=== PATIENT | female | born 1975 ===

== ENCOUNTER 2020-03-13 08:27 | Outpatient (REF) | payer OTHER, SELFPAY ==
--- NOTE | 2020-03-13 | US_ITS ---
EXAMINATION: US ABDOMEN COMPLETE CLINICAL INFORMATION: Left upper quadrant abdominal swelling, mass and lump. COMPARISON: 04/22/2019. TECHNIQUE: Real-time imaging of the abdominal viscera. FINDINGS: PANCREAS: Visualized pancreas unremarkable. The tail is partially obscured by bowel gas shadowing. ABDOMINAL AORTA: Unremarkable. INFERIOR VENA CAVA: Unremarkable. LIVER: Unremarkable. GALLBLADDER: Unremarkable. COMMON BILE DUCT: Normal in caliber measuring 0.7 cm in diameter. RIGHT KIDNEY: 11.0 cm. Unremarkable. LEFT KIDNEY: 10.1 cm. Unremarkable. SPLEEN: 7.0 cm. Unremarkable. FREE FLUID: None. SOFT TISSUES: Left upper quadrant soft tissues are unremarkable. IMPRESSION: Unremarkable abdomen. If the patient's left upper quadrant mass/swelling persists or worsens, further evaluation with a CT scan of the abdomen should be considered.
== END 2020-03-13 08:28 | disposition home or self-care (01) ==
LOC: HO.US 08:27
PROVIDERS: PCP Internal Medicine; Visit Provider Internal Medicine
DX: R19.02 Left upper quadrant abdominal swelling, mass and lump (principal)
CPT/HCPCS: 76700

== ENCOUNTER → 2020-04-21 08:31 | Outpatient (BNVA) | payer OTHER, SELFPAY | PROVIDERS: PCP Internal Medicine; Visit Provider Surgery | DX: Z76.89 Persons encountering health services in other specified circumstances (principal) ==

== ENCOUNTER → 2020-04-24 12:50 | Outpatient (BNVA) | payer OTHER, SELFPAY | PROVIDERS: Visit Provider Orthopaedic Surgery | DX: Z76.89 Persons encountering health services in other specified circumstances (principal) ==

== ENCOUNTER 2020-05-11 07:51 | Outpatient (REF) | payer OTHER, SELFPAY ==
[2020-05-11 07:57] VITALS: BP 118/68; PULSE 75; RESP 16; TEMP 36.4; O2SAT 98
[2020-05-11 08:26] VITALS: BP 114/72; PULSE 73; RESP 16; O2SAT 100
--- NOTE | 2020-05-11 08:30 | PM.OP ---
Brief Operative Note Date of Service: 05/11/20 Pre-op diagnosis: Lipoma left lower chest Post-op diagnosis: same Procedure: excision lipoma left lower chest Implants: non Surgeon: Sancho Doshi MD Anesthesia: local Estimated blood loss (mL): 2 Pathology: other ( lipoma left lower chest) Condition: stable Disposition: other ( home)
--- NOTE | 2020-05-11 08:31 | W.PM.OPN ---
Operative Note Operative Note Date of Service: 05/11/20 Narrative: Preoperative diagnosis: Lipoma left lower chest Postoperative diagnosis: Same Procedure: Excision of lipoma left lower chest Surgeon: Sancho Doshi MD Anesthesia: Local Indications for procedure: 44-year-old female presenting with a painful lipoma measuring approximately 3 cm in the lower left anterior chest at the anterior midclavicular line. Operative findings: 2.5 cm round lipoma Specimen: Lipoma left lower chest Estimated blood loss: 2 mL Complications: None Procedure details: Site of surgery was confirmed by the patient in the left lower chest. After assuring informed consent the patient was placed in a supine position. The lipoma the was marked with a skin scribe. Skin was prepped with Betadine and draped in a sterile fashion. Local anesthesia consisting of lidocaine 1% with epinephrine was infiltrated and an oblique fashion over the lipoma. Incision was then made with a scalpel carried out through subcutaneous tissue. Sharp dissection was then used to dissect the lipoma from the surrounding subcutaneous tissue. Specimen was sent to pathology for further examination. After assuring adequate hemostasis the deep subcutaneous tissue was closed using a 4-0 Polysorb suture. Skin was then closed using a running subcuticular 4 0 Polysorb suture. Steri-Strips 2 x 2 gauze and Tegaderm were then applied. The patient tolerated the procedure well was discharged to home in stable condition.
== END 2020-05-11 07:52 | disposition home or self-care (01) ==
LOC: HO.MS 07:51
PROVIDERS: PCP Internal Medicine; Visit Provider Surgery
PROC: (CPT 21552; principal; 2020-05-11 08:00)
DX: D17.1 Benign lipomatous neoplasm of skin and subcutaneous tissue of trunk (principal)
CPT/HCPCS: 21552; 88304

== ENCOUNTER → 2020-05-19 08:50 | Outpatient (BNVA) | payer OTHER, SELFPAY | PROVIDERS: PCP Internal Medicine; Visit Provider Surgery | DX: Z76.89 Persons encountering health services in other specified circumstances (principal) ==

== ENCOUNTER → 2020-05-23 12:31 | Outpatient (BNVA) | payer OTHER, SELFPAY | PROVIDERS: PCP Internal Medicine; Visit Provider Orthopaedic Surgery | DX: Z76.89 Persons encountering health services in other specified circumstances (principal) ==

== ENCOUNTER 2020-06-05 12:46 | Outpatient (REF) | payer OTHER, SELFPAY ==
[2020-06-05 13:46] LABS: COVID-19 Test Negative (Negative); IDNOW Serial# 55D5AD1C
== END 2020-06-05 12:47 | disposition home or self-care (01) ==
LOC: HO.EMPCOV 12:46
PROVIDERS: PCP Internal Medicine; Visit Provider Internal Medicine
DX: Z20.828 Contact with and (suspected) exposure to other viral communicable diseases (principal)
CPT/HCPCS: 87635; C9803

== ENCOUNTER 2020-06-22 08:03 | Day surgery (SDC) | payer OTHER, SELFPAY ==
[2020-06-16 14:12] VITALS: BMI 30.5
[2020-06-16 14:35] VITALS: BMI 30.5
[2020-06-22 08:27] VITALS: BP 106/84; PULSE 74; RESP 16; TEMP 37.3; O2SAT 97
--- NOTE | 2020-06-22 09:47 | PC.NURSE ---
MD CASILLAS BY BEDSIDE INJECTING LOCAL LIDO FOR PROCEDURE.RIGHT SIDE MARKED.
--- NOTE | 2020-06-22 09:54 | MHC.SHP ---
Pre-Procedural Eval Section B Chief Complaint: carpal tunnel,right upper limb Allergies: Allergies Allergy/AdvReac Type Severity Reaction Status Date / Time No Known Allergies Allergy Verified 05/23/20 12:37 [No Known Allergies*] Plan I have reviewed the history and physical and performed a pertinent physical examination on my patient. No changes have occurred unless specified.
--- NOTE | 2020-06-22 10:38 | W.PM.OPN ---
Operative Note Operative Note Date of Service: 06/22/20 Narrative: Preop diagnosis: 1. Right Carpal tunnel syndrome Postop diagnosis: 1. Right Carpal tunnel syndrome Procedure: 1. Right Carpal tunnel release Surgeon: Gretchen Thorpe MD Anesthesia: local block using 1% lidocaine with epinephrine Findings: Thickened transverse carpal ligament. EBL: Less than 5 mL Specimens: None Complications: None Disposition: Brought to recovery room in stable condition Plan: Follow-up for 7-10 days for wound check and suture removal Indications: The patient is 44 years old, with right carpal tunnel syndrome that has been unresponsive to nonoperative management. The risks and benefits of operative treatment including but not limited to risk of damage to blood vessels, nerves, tendons, infection, persistent pain, persistent symptoms, or possible need for additional surgery were discussed with the patient and the patient wishes to proceed with surgery. Procedure: Once consent was obtained a local block was performed using a combination of 1% lidocaine with epinephrine. The patient was then brought back to the operating suite and placed on the operative table in supine position. A tourniquet was applied to the proximal aspect of the right upper extremity and the limb was prepped and draped in a standard surgical fashion. Once assured that we had a good block, a 1.5 cm longitudinal incision was made centered over the right carpal tunnel. The incision was made through the skin to the subcutaneous tissues using a #15 blade. Dissection was made down to the level of the transverse carpal ligament with care being taken to protect the palmar cutaneous nerve. Once the transverse carpal ligament was clearly visualized, a longitudinal incision was made in the transverse carpal ligament 1st using a #15 blade, then using tenotomy scissors under direct visualization. Care was taken to look for and protect the motor branch of the median nerve when seen in this area. Once satisfied with our carpal tunnel release the wound was copiously irrigated with normal saline and hemostasis was obtained with a brief period of local pressure. The skin edges were reapproximated with some 5.0 nylon suture material and a sterile dressing was applied. The patient appears to have tolerated the procedure well and with no complications. All digits were well vascularized at the conclusion of the case.
[2020-06-22 11:03] VITALS: BP 119/60; PULSE 70; RESP 16; TEMP 36.4; O2SAT 96
== END 2020-06-22 23:59 | disposition home or self-care (01) ==
PROVIDERS: PCP Internal Medicine; Visit Provider Orthopaedic Surgery
PROC: (CPT 64721; principal; 2020-06-22 09:50)
DX: G56.01 Carpal tunnel syndrome, right upper limb (principal); J45.909 Unspecified asthma, uncomplicated; Z79.51 Long term (current) use of inhaled steroids
CPT/HCPCS: 64721

== ENCOUNTER 2020-06-27 12:26 | Outpatient (REF) | payer OTHER, SELFPAY ==
--- NOTE | 2020-06-27 13:04 | XR_ITS ---
EXAMINATION: XR HAND, RIGHT CLINICAL INFORMATION: Pain. COMPARISON: 11/25/2016 TECHNIQUE: PA, lateral, and oblique views of the right hand. FINDINGS: Normal bone mineralization. No fracture. Alignment is anatomic. Joint spaces are maintained. No erosions or soft tissue calcifications. XR/XR hand RT min 3V IMPRESSION: No acute osseous abnormality.
== END 2020-06-27 12:27 | disposition home or self-care (01) ==
LOC: HO.HOSX 12:26
PROVIDERS: PCP Internal Medicine; Visit Provider Orthopaedic Surgery
DX: M79.641 Pain in right hand (principal); Z91.81 History of falling; Z98.890 Other specified postprocedural states
CPT/HCPCS: 73130

== ENCOUNTER → 2020-07-03 09:59 | Outpatient (BNVA) | payer OTHER, SELFPAY | PROVIDERS: Visit Provider Orthopaedic Surgery ==

== ENCOUNTER 2020-07-19 14:39 | Outpatient (REF) | payer OTHER, SELFPAY ==
--- NOTE | ~2020-07-19 | XR_ITS ---
EXAMINATION: XR HIP, RIGHT CLINICAL INFORMATION: Pain right hip COMPARISON: None TECHNIQUE: Two views of the right hip. FINDINGS: Bones and soft tissues are normal. No fracture. Alignment is anatomic. Hip joint space is maintained. XR/XR hip RT min 2V IMPRESSION: Normal right hip.
== END 2020-07-19 14:40 | disposition home or self-care (01) ==
LOC: HO.XRAY 14:39
PROVIDERS: PCP Internal Medicine; Visit Provider Internal Medicine
DX: M25.551 Pain in right hip (principal); W19.XXXA Unspecified fall, initial encounter
CPT/HCPCS: 73502

== ENCOUNTER 2020-10-24 09:52 | Outpatient (REF) | payer OTHER, SELFPAY ==
--- NOTE | ~2020-10-24 | US_ITS ---
EXAMINATION: US ABDOMEN COMPLETE CLINICAL INFORMATION: Right upper quadrant pain. COMPARISON: Ultrasound abdomen complete dated 03/13/2020 and 04/22/2019. TECHNIQUE: Real-time imaging of the abdominal viscera. FINDINGS: PANCREAS: Normal. ABDOMINAL AORTA: The proximal, mid, and distal segments are normal in caliber. INFERIOR VENA CAVA: Visualized portions are normal. LIVER: The liver is normal in size. The liver contour is normal. There is increased liver echogenicity. No focal hepatic lesion. There is no intrahepatic biliary duct dilatation seen. GALLBLADDER: Normal. The gallbladder is physiologically distended without evidence of stones, sludge, polyps, wall thickening or pericholecystic fluid. COMMON BILE DUCT: Normal in caliber measuring 0.28 cm in diameter. RIGHT KIDNEY: Normal. No hydronephrosis. No renal calculi or focal parenchymal lesions. The kidney measures 10.8 cm in maximum dimension. LEFT KIDNEY: Normal. No hydronephrosis. No renal calculi or focal parenchymal lesions. The kidney measures 10.2 cm in maximum dimension. SPLEEN: Normal. The spleen measures 6.7 cm in maximum dimension. FREE FLUID: None. US/US abdomen complete IMPRESSION: Mild hepatic steatosis. No focal lesion seen. Rest of the abdominal ultrasound is unremarkable.
== END 2020-10-24 09:53 | disposition home or self-care (01) ==
LOC: HO.US 09:52
PROVIDERS: PCP Internal Medicine; Visit Provider Internal Medicine
DX: R10.11 Right upper quadrant pain (principal)
CPT/HCPCS: 76700

== ENCOUNTER 2020-11-18 20:12 | Emergency (ER) | payer OTHER, SELFPAY ==
[2020-11-18 20:22] VITALS: BP 123/69; PULSE 72; RESP 20; TEMP 36.2; O2SAT 99; BMI 30.9
[2020-11-18 21:54] LABS: MANUAL DIFF FLAG NO
[2020-11-18 21:56] LABS: Basophils Percent Auto 0.2 % (0-2); Eosinophils Absolute Auto 0.1 X10*3/uL (0.0-0.4); Eosinophils Percent Auto 0.9 % (0-4); Hematocrit 37.9 % (37-47); Hemoglobin 12.2 g/dl (12.0-16.0); Imm Gran Abs Auto 0.04 X10*3/uL (0.00-0.03); Imm Gran Pct Auto 0.4 % (0.0-0.4); Lymphocytes Absolute Auto 1.8 X10*3/uL (1.2-4.9); Lymphocytes Percent Auto 17.8 % (20-40); Mean Corpuscular HGB Conc 32.2 g/dl (31.0-35.0); Mean Corpuscular Hemoglobin 27.3 pg (27.0-33.0); Mean Corpuscular Volume 84.8 fL (80-98); Mean Platelet Volume 10.4 fL (9.4-12.3); Monocytes Absolute Auto 0.9 X10*3/uL (0.1-1.2); Monocytes Percent Auto 8.3 % (2-11); Neutrophils Absolute Auto 7.4 X10*3/uL (2.0-8.3); Neutrophils Percent Auto 72.4 % (45-73); Platelet Count 234 X10*3/uL (160-400); Red Blood Count 4.47 X10*6/uL (4.20-5.50); Red Cell Distribution Width 13.4 % (11.0-16.0); White Blood Count 10.3 X10*3/uL (4.8-10.8)
[2020-11-18 22:26] LABS: Alanine Aminotransferase 20 U/L (0-31); Albumin Level 4.3 g/dL (3.5-5.0); Alkaline Phosphatase 82 U/L (39-117); Anion Gap 12 (12-20); Aspartate Amino Transferase 23 U/L (5-31); Bilirubin Total 0.3 mg/dL (0.0-1.0); Blood Urea Nitrogen 8 mg/dL (9-16); Calcium 9.2 mg/dL (8.4-10.2); Carbon Dioxide 26 mmol/L (22-29); Chloride 105 mmol/L (96-108); Estimated Glomerular Filt Rate > 60; Glucose Random 89 mg/dL (60-115); Potassium 4.1 mmol/L (3.3-5.1); Sodium 139 mmol/L (135-145); Total Protein 7.5 g/dL (6.5-8.0)
--- NOTE | 2020-11-18 22:35 | ED_ITS ---
HPI - General Adult General Chief complaint: Upper Respiratory Symptoms Stated complaint: sore throat Time Seen by Provider: 11/18/20 22:17 History of Present Illness HPI narrative: Patient 44 years old presents today with having sore throat for the last few days. Seen in urgent care had a rapid strep done that was negative. Complaining of tonsils being big. Continued to have pain. Cancer presents to the emergency department. No fever no chills. Pain on swallowing. No diaphoresis. No systemic complaints. Patient from home. No travel history. No cough no congestion or upper respiratory symptoms Related Data Home Medications Medication Instructions Recorded Confirmed albuterol sulfate 2.5 mg INHALATION Q4H PRN 04/21/20 06/16/20 albuterol sulfate 90 mcg/actuation 1 puff INHALATION Q4-6H PRN 04/21/20 06/16/20 aerosol inhaler fluticasone propionate 110 2 puff INHALATION QAM 04/21/20 06/16/20 mcg/actuation HFA aerosol inhaler lorazepam 0.5 mg tablet 0.5 mg PO BID PRN 04/21/20 06/16/20 meloxicam 15 mg tablet 15 mg PO DAILY 04/21/20 06/16/20 Previous Rx's Medication Instructions Recorded hydrocodone-acetaminophen 1 tab PO Q4-6H PRN #5 tab 06/22/20 penicillin V potassium 500 mg PO TID #30 tab 11/18/20 prednisone 40 mg PO DAILY #10 tab 11/18/20 Allergies Allergy/AdvReac Type Severity Reaction Status Date / Time No Known Allergies Allergy Verified 07/03/20 10:06 [No Known Allergies*] Review of Systems Review of Systems: Constitutional: No Weight loss, No Fever, No Chills, No Night Sweats, No Fatigue, No Malaise ENT/Mouth: No Hearing loss, No Ear Pain, No Nasal Congestion, No Sinus Pain, No Hoarseness, positive sore throat, No Rhinorrhea, No Swallowing Difficulty Eyes: No Eye Pain, No Swelling, No Redness, No Foreign Body, No Discharge, No Vision Changes Cardiovascular: No Chest Pain, No SOB, No Dyspnea on Exertion, No Orthopnea, No Edema, No Palpitations Respiratory: No Cough, No Sputum, No Wheezing, No Smoke Exposure, No Dyspnea Gastrointestinal: No Nausea, No Vomiting, No Diarrhea, No Constipation, No abdominal Pain, No Hematochezia, No Melena Genitourinary: no irregular bleeding, No Dysuria, No Urinary Frequency, No Hematuria, No Urinary Incontinence, No Urgency, No Flank Pain, No Urinary Flow Changes, No Hesitancy Musculoskeletal: No joint pain, No Myalgias, No Joint Swelling Skin: No Skin Lesions, No rash Neuro: No Weakness, No Numbness, No Paresthesias, No Loss of Consciousness, No Dizziness, No Headache Psych: No Anxiety/Panic, No Depression, No SI/HI/AH/VH, No Social Issues, Heme/Lymph: No Bruising, No Bleeding,No Lymphadenopathy Endocrine: No Polyuria, No Polydipsia, No Temperature Intolerance [facility] Past Medical History Attestation statement: The following information was validated with the patient. 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 Oriented X3. No acute distress. Eyes: Pupils equal, round and reactive to light. ENT: Pharynx normal, tonsil enlarged bilaterally with exudate noted Neck: Normal inspection. Neck supple. No lymph nodes noted. No crepitus CVS: Normal heart rate and rhythm. Pulses normal. Normal S1 and S2 Respiratory: No respiratory distress. Breath sounds normal. No Wheezing. No rales Abdomen: Soft and nontender. No rigidity. No distention. good BS x4 Skin: Skin warm and dry. Normal skin color. Normal skin turgor. Extremities: No lower extremity edema. Neurovascular intact to all extremities. No Lacerations. No Rash Neuro: Oriented X 3. No motor deficit. No sensory deficit. Moving all ex termities. No slurred speech Medical Decision Making MDM Narrative Medical decision making narrative: Positive enlarged tonsils on both sides. Touching the uvula. Positive redness. Positive swelling positive exudate. Less likely peritonsillar abscess given both sides are swollen. Will give pat ient antibiotics steroids. Will have patient follow-up with ENT on an outpatient basis. Lab Data Result diagrams: 11/18/20 21:47 11/18/20 21:47 Labs: Lab Results 11/18/20 11/18/20 Range/Units 21:47 21:47 WBC 10.3 (4.8-10.8) X10*3/uL RBC 4.47 (4.20-5.50) X10*6/uL Hgb 12.2 (12.0-16.0) g/dl Hct 37.9 (37-47) % MCV 84.8 (80-98) fL MCH 27.3 (27.0-33.0) pg MCHC 32.2 (31.0-35.0) g/dl RDW 13.4 (11.0-16.0) % Plt Count 234 (160-400) X10*3/uL MPV 10.4 (9.4-12.3) fL Immature Gran % (Auto) 0.4 (0.0-0.4) % Neut % (Auto) 72.4 (45-73) % Lymph % (Auto) 17.8 L (20-40) % Baxter % (Auto) 8.3 (2-11) % Eos % (Auto) 0.9 (0-4) % Baso % (Auto) 0.2 (0-2) % Lymph # (Auto) 1.8 (1.2-4.9) X10*3/uL Baxter # (Auto) 0.9 (0.1-1.2) X10*3/uL Eos # (Auto) 0.1 (0.0-0.4) X10*3/uL Baso # (Auto) 0.0 (0.0-0.2) X10*3/uL Abs Immat Gran (auto) 0.04 H (0.00-0.03) X10*3/uL Absolute Neuts (auto) 7.4 (2.0-8.3) X10*3/uL Absolute Nucleated RBC 0.000 (0.0-0.012) X10*3/uL Nucleated RBC % (auto) 0.0 (0.0-0.2) /100WBC Sodium 139 (135-145) mmol/L Potassium 4.1 (3.3-5.1) mmol/L Chloride 105 (96-108) mmol/L Carbon Dioxide 26 (22-29) mmol/L Anion Gap 12 (12-20) BUN 8 L (9-16) mg/dL Creatinine 0.79 (0.5-1.4) mg/dL Estim Creat Clear Calc 93.0 Estimated GFR > 60 Random Glucose 89 (60-115) mg/dL Calcium 9.2 (8.4-10.2) mg/dL Total Bilirubin 0.3 (0.0-1.0) mg/dL AST 23 (5-31) U/L ALT 20 (0-31) U/L Alkaline Phosphatase 82 (39-117) U/L Total Protein 7.5 (6.5-8.0) g/dL Albumin 4.3 (3.5-5.0) g/dL Discharge Plan Discharge Clinical Impression: Acute bacterial tonsillitis Patient Disposition: Home, Self-Care Instructions: Tonsillitis (ED) Prescriptions: New prednisone 20 mg tablet 40 mg PO DAILY Qty: 10 RF: 0 penicillin V potassium 500 mg tablet 500 mg PO TID Qty: 30 RF: 0 No Action hydrocodone-acetaminophen 5-325 mg tablet 1 tab PO Q4-6H PRN (Reason: pain) Qty: 5 RF: 0 albuterol sulfate 90 mcg/actuation HFA aerosol inhaler 1 puff inhalation Q4-6H PRN (Reason: Shortness Of Breath) RF: 0 Flovent HFA 110 mcg/actuation HFA aerosol inhaler 2 puff inhalation QAM RF: 0 lorazepam 0.5 mg tablet 0.5 mg PO BID PRN (Reason: Anxiety) RF: 0 meloxicam 15 mg tablet 15 mg PO DAILY RF: 0 albuterol sulfate 2.5 mg /3 mL (0.083 %) solution for nebulization 2.5 mg inhalation Q4H PRN (Reason: Shortness Of Breath) RF: 0 Referrals: Evelio Koo [Physician] - 2 days
[2020-11-18] MEDS: predniSONE 20 MG TABLET 40 MG PO (22:53)
[2020-11-18] MEDS: Acetaminophen 325 MG TABLET 650 MG PO (22:53)
[2020-11-18] MEDS: Penicillin V Potassium 250 MG TABLET 500 MG PO (22:53)
[2020-11-19 00:25] LABS: IDNOW Serial# 9DD0AD1C; Strep A Nucleic Acid Negative (Negative)
== END 2020-11-18 23:01 | disposition home or self-care (01) ==
PROVIDERS: Emergency Provider Emergency Medicine Emergency Medical Services; PCP Internal Medicine
DX: J03.90 Acute tonsillitis, unspecified (principal)
CPT/HCPCS: 36415; 80053; 85025; 87651; 99283

== ENCOUNTER 2020-11-27 10:54 | Outpatient (REF) | payer OTHER, SELFPAY ==
[2020-11-28 22:12] LABS: Transglutaminase Ab IgG 1 U/mL; Transglutaminase IgA 1 U/mL
== END 2020-11-27 10:55 | disposition home or self-care (01) ==
LOC: HO.LAB 10:54
PROVIDERS: PCP Internal Medicine; Referring Provider Internal Medicine; Visit Provider Nurse Practitioner Family
DX: R10.11 Right upper quadrant pain (principal); K21.9 Gastro-esophageal reflux disease without esophagitis; Z83.79 Family history of other diseases of the digestive system
CPT/HCPCS: 36415; 83516

== ENCOUNTER 2020-11-28 14:22 | Outpatient (REF) | payer OTHER, SELFPAY | END 2020-11-28 14:23 | disposition home or self-care (01) | LOC: HO.LNP 14:22 | PROVIDERS: Visit Provider Nurse Practitioner Family | DX: K21.9 Gastro-esophageal reflux disease without esophagitis (principal) | CPT/HCPCS: 87338 ==

== ENCOUNTER 2020-11-30 14:04 | Outpatient (REF) | payer OTHER, SELFPAY ==
--- NOTE | ~2020-11-30 | US_ITS ---
EXAMINATION: US SOFT TISSUE NECK CLINICAL INFORMATION: Swelling/mass/lump on neck. Rule out abscess. COMPARISON: None TECHNIQUE: Ultrasound of the neck soft tissues was performed with high- frequency quintanilla-scale imaging and color Doppler. FINDINGS: No abscess is seen. There is bilateral cervical lymphadenopathy. There are 2 right level II lymph nodes that are enlarged and measure 2.9 x 0.8 x 2.3 cm and 3.6 x 0.6 x 1.4 cm in sagittal, AP and transverse dimensions. These demonstrate normal ultrasound morphology and flow. There are 3 left cervical lymph nodes that are slightly enlarged. There is a left level II lymph node that measures 2.5 x 1.1 x 1.3 cm, 2 x 0.6 x 1.3 cm and 1.6 x 0.8 x 1.3 cm. These demonstrate normal ultrasound morphology and flow. US/US soft tiss head and/or neck IMPRESSION: Enlarged bilateral cervical lymph nodes. Lymph nodes demonstrate normal ultrasound morphology and flow. Management should be determined on a clinical basis. No abscess.
== END 2020-11-30 14:05 | disposition home or self-care (01) ==
LOC: HO.HMGCX 14:04
PROVIDERS: PCP Internal Medicine; Visit Provider Emergency Medicine
DX: J35.1 Hypertrophy of tonsils (principal); R22.1 Localized swelling, mass and lump, neck
CPT/HCPCS: 76536

== ENCOUNTER 2021-01-02 12:22 | Outpatient (REF) | payer OTHER, SELFPAY ==
--- NOTE | ~2021-01-02 | XR_ITS ---
EXAMINATION: XR FOOT, RIGHT CLINICAL INFORMATION: Pain COMPARISON: Previous x-ray March 2017 TECHNIQUE: AP, lateral, and oblique views of the right foot. FINDINGS: Bone alignment is normal. No fracture or dislocation. The joint spaces are normal. There are small calcaneal spurs. Soft tissues are otherwise unremarkable. XR/XR foot RT min 3V IMPRESSION: Small calcaneal spurs otherwise unremarkable exam.
== END 2021-01-02 12:23 | disposition home or self-care (01) ==
LOC: HO.XRAY 12:22
PROVIDERS: Absent Provider Internal Medicine; PCP Internal Medicine; Visit Provider Emergency Medicine
DX: M79.671 Pain in right foot (principal)
CPT/HCPCS: 73630

== ENCOUNTER → 2021-01-10 07:59 | Outpatient (REF) | payer OTHER, SELFPAY | LOC: HO.NUCMED 07:59 | PROVIDERS: Visit Provider Nurse Practitioner Family | DX: Z13.89 Encounter for screening for other disorder (principal) ==

== ENCOUNTER → 2021-01-23 07:50 | Outpatient (REF) | payer OTHER, SELFPAY ==
--- NOTE | ~2021-01-23 | NM_ITS ---
EXAMINATION: NM BILIARY TRACT WITH ORAL FATTY MEAL CLINICAL INFORMATION: Right upper quadrant pain. COMPARISON: No previous biliary scan is available for comparison. Abdominal ultrasound dated 10/24/2020 is available for comparison. TECHNIQUE: Serial gamma scintillation camera images were obtained over the abdomen for a total observation period of 139 minutes following the intravenous administration of 5 mCi Tc-99m Mebrofenin. FINDINGS: There is good concentration of activity in the liver by 5 minutes post injection. Biliary activity is visualized by 10 minutes. The gallbladder is well visualized by 30 minutes. Small bowel is well visualized by 25 minutes. At 60 minutes post Mebrofenin injection, 8 ounces of Ensure-plus Brand was administered orally and an additional 60 minutes of images were obtained. There is good emptying of the gallbladder following ingestion of the fatty meal. At the end of the study there is good clearance of activity from the liver and visualization of diffuse small bowel activity. The calculated gallbladder ejection fraction is 87% (normal gallbladder ejection fraction using Ensure supplement orally is greater than 33%). NM/NM hepatobiliary wo pharm IMPRESSION: Visualization of the gallbladder is evidence of a patent cystic duct and strong evidence against the diagnosis of acute cholecystitis. The common bile duct is patent. Gallbladder emptying and ejection fraction are normal. Liver function appears normal.
== END ==
LOC: HO.NUCMED 07:50
PROVIDERS: Visit Provider Nurse Practitioner Family
DX: R10.11 Right upper quadrant pain (principal)
CPT/HCPCS: 78226; A9537

== ENCOUNTER 2021-02-13 16:00 | Outpatient (REF) | payer OTHER, SELFPAY ==
[2021-02-13 18:16] LABS: Blood Urea Nitrogen 10 mg/dL (9-16); C Reactive Protein 0.11 mg/dL (< or = 0.50); Estimated Glomerular Filt Rate > 60; Lipase 27 U/L (8-78)
[2021-02-13 18:36] LABS: TSH reflex Free T4 0.77 uIU/mL (0.32-4.0)
== END 2021-02-13 16:01 | disposition home or self-care (01) ==
LOC: HO.LAB 16:00
PROVIDERS: PCP Internal Medicine; Referring Provider Internal Medicine; Visit Provider Nurse Practitioner Family
DX: R10.9 Unspecified abdominal pain (principal); K21.9 Gastro-esophageal reflux disease without esophagitis; K58.2 Mixed irritable bowel syndrome; R19.7 Diarrhea, unspecified
CPT/HCPCS: 36415; 82565; 83690; 84443; 84520; 86140

== ENCOUNTER 2021-02-21 06:55 | Outpatient (REF) | payer OTHER, SELFPAY ==
--- NOTE | ~2021-02-21 | CT_ITS ---
EXAMINATION: CT ABDOMEN AND PELVIS WITH CONTRAST CLINICAL INFORMATION: Abdominal pain COMPARISON: None TECHNIQUE: Multidetector volumetric images were obtained from the superior aspect of the liver through the pubic symphysis following administration 85 mL of Omnipaque 350 intravenous contrast. Sagittal and coronal reformatted images were obtained on the technologist's workstation. Oral contrast: No This CT examination was performed using dose optimization techniques as appropriate, variously including the following: *Automated exposure control *Adjustment of mA and/or kV according to patient size (this includes techniques or standardized protocols for targeted exams where dose is matched to indication/reason for exam; i.e. extremities or head) *Use of iterative reconstruction technique DLP: 520 mGy-cm FINDINGS: LUNG BASES: The visualized lung bases are unremarkable. LIVER, GALLBLADDER, AND BILIARY TREE: The liver is normal in size, shape, and attenuation. No focal hepatic lesion or biliary ductal dilatation is present. The gallbladder is unremarkable with no evidence of radiopaque gallstones, gallbladder wall thickening, or obvious pericholecystic inflammatory changes. PANCREAS: Unremarkable. SPLEEN: Unremarkable. ADRENAL GLANDS: Unremarkable. KIDNEYS AND URETERS: The kidneys are normal in size, shape, and attenuation. No hydronephrosis, hydroureter, or calculi seen. No perinephric stranding. BLADDER: Unremarkable. GASTROINTESTINAL TRACT: There is scattered moderate stool and gas seen throughout the colon without significant distention. The small bowel loops are normal caliber. Appendix is not visualized. No free air or free fluid seen. ABDOMINAL WALL: There is a small umbilical hernia containing fat. LYMPH NODES: Normal. VASCULAR: Unremarkable. PELVIC VISCERA: The uterus is retroverted and appears unremarkable. There is no free fluid. OSSEOUS STRUCTURES: No lytic or sclerotic process seen. CT/CT abdomen pelvis w con IMPRESSION: Retroverted but unremarkable uterus. No adnexal mass or free fluid. No acute intra-abdominal process seen.
[2021-02-21] MEDS: iohexoL 350 MG/ML 100 ML INFUS..BTL 85 ML IV (09:37)
[2021-02-21] MEDS: Barium Sulfate Oral (Vanilla) 450 ML ORAL.SUSP 900 ML PO (09:41)
== END 2021-02-21 06:56 | disposition home or self-care (01) ==
LOC: HO.CT 06:55
PROVIDERS: Visit Provider Nurse Practitioner Family
DX: R10.9 Unspecified abdominal pain (principal)
CPT/HCPCS: 74177; Q9967

== ENCOUNTER → 2021-03-20 15:54 | Outpatient (BNVA) | payer OTHER, SELFPAY | PROVIDERS: PCP Internal Medicine; Referring Provider Internal Medicine; Visit Provider Nurse Practitioner Family ==

== ENCOUNTER → 2021-04-23 08:20 | Outpatient (BNVA) | payer OTHER, SELFPAY | PROVIDERS: PCP Internal Medicine; Referring Provider Internal Medicine; Visit Provider Nurse Practitioner Family ==

== ENCOUNTER 2021-06-15 07:27 | Day surgery (SDC) | payer OTHER, SELFPAY ==
[2021-06-05 16:16] VITALS: BMI 30.9
--- NOTE | 2021-06-14 15:32 | P.CONAN_ITS ---
Documented by User: Jasmina Gross NP 06/14/21 15:32 HPI - Anesthesia Eval Consult details Narrative: 45yo F for Upper Endoscopy and Colonoscopy [facility] Active Problems Active Problems: All Active Problems (Updated 06/05/21 @ 16:16 by Marya Hawkins RN) Lipoma (Acute) Numbness and tingling in both hands (Acute ~07/2019) Carpal tunnel syndrome of right wrist (Acute) Right hand pain (Acute) Past Medical History Medical History Anxiety Asthma Back pain COVID-19 vaccine administered GERD (gastroesophageal reflux disease) Lab test negative for COVID-19 virus Lipoma Pancreatitis Family History Family History Maternal Grandmother History of ovarian cancer Mother History of thyroid disease Surgical History Surgical History History of carpal tunnel release (~06/22/20) Status post excision of lipoma Social History Social History Alcohol intake: never Patient Tobacco Use Status: Never used Tobacco Use of substances other than those prescribed or required for medical reasons: No Are you DNR?: No Advance Directives: No Advance Directives Information Provided: No Advance Directives on File: No Recently lost weight without trying: No Nutrition Risks: No Nutritional Risk Patient : No Current occupational status: employed 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 Allergies Allergy/AdvReac Type Severity Reaction Status Date / Time kiwi Allergy Anaphylaxis Verified 06/15/21 07:50 pear Allergy Anaphylaxis Verified 06/15/21 07:50 pineapple Allergy Anaphylaxis Verified 06/15/21 07:50 strawberry Allergy Anaphylaxis Verified 06/15/21 07:50 Home Medications Medication Instructions Recorded Confirmed Last Taken Type albuterol sulfate 2.5 mg INHALATION Q4H PRN 04/21/20 06/05/21 Unknown History fluticasone propionate 110 2 puff INHALATION QAM 04/21/20 06/05/21 Unknown History mcg/actuation HFA aerosol inhaler lorazepam 0.5 mg tablet 0.5 mg PO BID PRN 04/21/20 06/05/21 06/15/21 07:45 History epinephrine 0.3 mg/0.3 mL 0.3 ml IM DIRECTED PRN 03/20/21 06/05/21 Unknown History injection, auto-injector Exam Exam Date and Time: June 14, 2021 1532 Height,Weight and Vital Signs: Height 5 ft 4 in Weight 81.647 kg Assessment and Plan Assessment Anesthesia Assessment: Chart Reviewed Documented by User: Frederick Lynn MD 06/15/21 08:36 [facility] Past Medical History Medical History Anxiety Asthma Back pain COVID-19 vaccine administered GERD (gastroesophageal reflux disease) Lab test negative for COVID-19 virus Lipoma Pancreatitis Family History Family History Maternal Grandmother History of ovarian cancer Mother History of thyroid disease Family history of problems with anesthesia: No Surgical History Surgical History History of carpal tunnel release (~06/22/20) Status post excision of lipoma History of Problems with Anesthesia: No Social History Social History Alcohol intake: never Patient Tobacco Use Status: Never used Tobacco Use of substances other than those prescribed or required for medical reasons: No Are you DNR?: No Advance Directives: No Advance Directives Information Provided: No Advance Directives on File: No Recently lost weight without trying: No Nutrition Risks: No Nutritional Risk Patient : No Current occupational status: employed 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 Allergies Allergy/AdvReac Type Severity Reaction Status Date / Time kiwi Allergy Anaphylaxis Verified 06/15/21 07:50 pear Allergy Anaphylaxis Verified 06/15/21 07:50 pineapple Allergy Anaphylaxis Verified 06/15/21 07:50 strawberry Allergy Anaphylaxis Verified 06/15/21 07:50 Home Medications Medication Instructions Recorded Confirmed Last Taken Type albuterol sulfate 2.5 mg INHALATION Q4H PRN 04/21/20 06/05/21 Unknown History fluticasone propionate 110 2 puff INHALATION QAM 04/21/20 06/05/21 Unknown History mcg/actuation HFA aerosol inhaler lorazepam 0.5 mg tablet 0.5 mg PO BID PRN 04/21/20 06/05/21 06/15/21 07:45 History epinephrine 0.3 mg/0.3 mL 0.3 ml IM DIRECTED PRN 03/20/21 06/05/21 Unknown History injection, auto-injector Exam Airway Mallampati Class: II TM Dist: >3cm Neck ROM: Full Loose/Missing/Broken Teeth: No Heart: [id number] Lungs: cta b/l Assessment and Plan Assessment Anesthesia Assessment: Anesthesia Plan Discussed Final Anesthetic Review Family History of Problems with Anesthesia: No History of Problems with Anesthesia: No NPO: Yes ASA Class: II Final Preanesthetic Review: No Changes in Pt Med Stat, Meds/Allgs Chart Reviewed, Consent Obtained/Reviewed and Anes Risks/Benef Reviewed Patient Risk: Intermediate Procedure Risk: Low Assessment/Block/Sedation in SS: Assess/Block/Sedation-SS Anesthetic Plan Anesthetic Plan: MAC: and Agree w/ Assess. and Plan Disposition: Standard PACU
[2021-06-15 07:59] LABS: UPreg QC Valid YES; Urine Pregnancy NEGATIVE (NEGATIVE)
[2021-06-15 08:01] VITALS: BP 117/72; PULSE 79; RESP 16; TEMP 36.8; O2SAT 97
[2021-06-15] MEDS: Lactated Ringers 1,000 ML 100 ML IVCONT (08:14)
--- NOTE | 2021-06-15 08:26 | MHC.SHP ---
Pre-Procedural Eval Section A Date of Service: 06/15/21 The patient is an INPATIENT: No The History & Physical has been completed within 30 days and I have reviewed it.: No Section B Chief Complaint: Colon cancer screening, abdominal pain, GERD Details of Present Illness: colon cancer screening, constipation, abdominal pain, GERD Relevant Family History (Specify if Yes): No Relevant Social History: None Present Medications: see Short Stay Collaborative assessment Medical History: Significant History (Anxiety Asthma COVID-19 vaccine administered Lab test negative for COVID-19 virus Lipoma Pancreatitis) History of Previous Operations: Relevant previous surgery/procedure and date(s) (History of carpal tunnel release (~06/22/20) Status post excision of lipoma) Allergies: Allergies Allergy/AdvReac Type Severity Reaction Status Date / Time kiwi Allergy Anaphylaxis Verified 06/15/21 07:50 pear Allergy Anaphylaxis Verified 06/15/21 07:50 pineapple Allergy Anaphylaxis Verified 06/15/21 07:50 strawberry Allergy Anaphylaxis Verified 06/15/21 07:50 Review of Systems Sugical H&P ROS: Negative: Constitution, Cardiovascular and Respiratory and Yes, Specify: Gastrointestinal (constipation) Exam Surgical H&P Exam: Normal: Heart, Normal: Lungs, Normal: Extremities and Normal: Abdomen Plan Diagnosis/Plan: Unchanged I have reviewed the history and physical and performed a pertinent physical examination on my patient. No changes have occurred unless specified.
--- NOTE | 2021-06-15 08:27 | PM.OP ---
Brief Operative Note Date of Service: 06/15/21 Pre-op diagnosis: colon cancer screening, chronic constipation, GERD, abdominal pain Post-op diagnosis: other ( colon polyp, diverticulosis, gastritis, GERD, duodenitis) Procedure: FLEXIBLE TRANSORAL UPPER GASTROINTESTINAL ENDOSCOPY WITH BIOPSIES AND COLONOSCOPY TILL CECUM WITH BIOPSIES UPPER ENDOSCOPY Consent: Indications for the procedure and potential complications of bleeding, perforation, reaction to medications and missed diagnosis were discussed with the patient and informed consent was obtained. Instrument: Olympus GIF H 190 mid size upper endoscope Monitoring: Vital signs and clinical assessment, continuous EKG monitoring, Pulse oximetry, Carbon Dioxide monitoring and blood pressure monitoring were done throughout the procedure. Procedure: The patient was placed in the left lateral decubitis position and pre-procedure medications were administered and a bite block was placed. The endoscope was inserted into the mouth and advanced under direct vision to the third part of duodenum. A careful inspection was made as the upper endoscope was withdrawn including a retroflexed examination of the proximal stomach; Findings and interventions are described below. Findings: Larynx: Normal Esophagus: GE junction at 38 cms. No esophagitis or Dickens's. Stomach: Mild gastric erythema. Biopsies were obtained. Grade 2 flap valve on retroflexed examination of the cardia. Duodenum: Mild duodenitis in the bulb and normal descending duodenum. Biopsies were obtained from 3rd part of the duodenum to check for celiac sprue Intervention: Biopsies as noted above COLONOSCOPY PROCEDURE NOTE Consent: Indications for the procedure and potential complications of bleeding, perforation, reaction to medications and missed diagnosis were discussed with the patient and informed consent was obtained. Instrument: Olympus PCF H 190 L variable stiffness pediatric colonoscope Monitoring: Vital signs and clinical assessment, intermittent blood pressure monitoring, continuous EKG monitoring, Pulse oximetry and Carbon Dioxide monitoring were done throughout the procedure. Colon withdrawl time was 12 minutes. Procedure: The patient was placed in the left lateral decubitis position and pre-procedure medications were administered. After a digital rectal examination of the ano-rectum, the video colonoscope was inserted into the rectum and advanced through the colon to the cecum. The colonoscope was slowly withdrawn in a retrograde panoramic fashion and the colon mucosa was carefully examined including a retroflexed view of the rectum. Findings and interventions are described below. Procedure Difficulty: : Without difficulty Findings: Terminal Ileum: Not evaluated Cecum: Normal Ascending Colon: Normal Transverse Colon: Normal Descending Colon: Normal Sigmoid Colon: A 5-6 mm sessile polyp removed with the cold biopsy. Moderate diverticulosis Rectum: Normal Ano-rectum: Normal Colon preparation: Excellent Impression and Post Procedure Diagnosis: Endoscopy Findings: STOMACH: Mild gastritis DUODENUM: Mild duodenitis in the bulb and normal descending duodenum - Biopsied to check for celiac sprue Colonoscopy Findings: One small polyp removed Moderate diverticulosis seen in the sigmoid colon Plan: Await pathology results Patient has an appointment on 06/29/20 in the GI Clinic with Macey Hammonds FNP-BC. Repeat Colonoscopy interval based on path results - in 5 years if polyps are adenomatous and 10 years if polyps are hyperplastic. Above findings were reviewed with the patient and GERD, colon polyps and diverticulosis handouts were given in the discharge area Surgeon: Candelario Johnson MD Anesthesia: MAC (Loni Khanna CRNA) Was an Press Operator Assistant used for this Procedure?: Yes Press Operator Assistant: Sienna Baliey Estimated blood loss (mL): 0 Pathology: other (A- Small bowel BX r/o celiac disease B- Gastric antrum BX r/o H Pylori C- Sigmoid polyp) Condition: stable Disposition: PACU
--- NOTE | 2021-06-15 08:28 | W.PM.OPN ---
Operative Note Operative Note Date of Service: 06/15/21 Narrative: Pre-op diagnosis:??colon cancer screening,? chronic constipation, GERD, abdominal pain Post-op diagnosis:?other ( colon polyp, diverticulosis, gastritis, GERD, duodenitis) Procedure:? FLEXIBLE TRANSORAL UPPER GASTROINTESTINAL ENDOSCOPY WITH BIOPSIES AND COLONOSCOPY TILL CECUM WITH BIOPSIES UPPER ENDOSCOPY Consent:?Indications for the procedure and potential complications of bleeding, perforation, reaction to medications and missed diagnosis were discussed with the patient and informed consent was obtained. Instrument:?Olympus GIF H 190 mid size upper endoscope Monitoring: Vital signs and clinical assessment, continuous EKG monitoring, Pulse oximetry, Carbon Dioxide monitoring and blood pressure monitoring were done throughout the procedure. Procedure:?The patient was placed in the left lateral decubitis position and pre-procedure medications were administered and a bite block was placed. The endoscope was inserted into the mouth and advanced under direct vision to the third part of duodenum. A careful inspection was made as the upper endoscope was withdrawn including a retroflexed examination of the proximal stomach; Findings and interventions are described below. Findings: Larynx:? Normal Esophagus:?GE junction at 38 cms. No esophagitis or Dickens's. Stomach:?Mild gastric erythema. Biopsies were obtained. Grade 2 flap valve on retroflexed examination of the cardia. Duodenum:?Mild duodenitis in the bulb and normal descending duodenum. ? Biopsies were obtained from 3rd part of the duodenum to check for celiac sprue Intervention:?Biopsies as noted above COLONOSCOPY PROCEDURE NOTE Consent:?Indications for the procedure and potential complications of bleeding, perforation, reaction to medications and missed diagnosis were discussed with the patient and informed consent was obtained. Instrument:?Olympus PCF H 190 L variable stiffness pediatric colonoscope Monitoring:?Vital signs and clinical assessment, intermittent blood pressure monitoring, continuous EKG monitoring, Pulse oximetry and Carbon Dioxide monitoring were done throughout the procedure. Colon withdrawl time was 12 minutes. Procedure:?The patient was placed in the left lateral decubitis position and pre-procedure medications were administered. After a digital rectal examination of the ano-rectum, the video colonoscope was inserted into the rectum and advanced through the colon to the cecum. The colonoscope was slowly withdrawn in a retrograde panoramic fashion and the colon mucosa was carefully examined including a retroflexed view of the rectum. Findings and interventions are described below. Procedure Difficulty:?: Without difficulty Findings: Terminal Ileum: Not evaluated Cecum:? Normal Ascending Colon:??Normal Transverse Colon:??Normal Descending Colon:? Normal Sigmoid Colon:??A 5-6 mm sessile? polyp removed with the cold biopsy. Moderate diverticulosis Rectum:??Normal Ano-rectum:??Normal Colon preparation: Excellent ? Impression and Post Procedure Diagnosis: Endoscopy Findings: STOMACH: Mild gastritis DUODENUM: Mild duodenitis in the bulb and normal descending duodenum - ? Biopsied to check for celiac sprue Colonoscopy Findings: One small polyp removed Moderate diverticulosis seen in the sigmoid colon Plan: Await pathology results Patient has an appointment on 06/29/20 in the GI Clinic with Macey Hammonds FNP-BC. Repeat Colonoscopy interval based on path results - in 5 years if polyps are adenomatous and 10 years if polyps are hyperplastic. Above findings were reviewed with the patient and GERD, colon polyps and diverticulosis handouts were given in the discharge area Surgeon:?Candelario Johnson MD Anesthesia:?MAC (Loni Khanna CRNA) Was an Email Marketing Specialist used for this Procedure?:?Yes Email Marketing Specialist:?Sienna Bailey Estimated blood loss (mL):?0 Pathology:?other (A- Small bowel BX r/o celiac disease? B- Gastric antrum BX r/o H Pylori? C- Sigmoid polyp) Condition:?stable Disposition:?PACU
[2021-06-15 09:25] VITALS: BP 110/57; PULSE 61; RESP 20; TEMP 36.5; O2SAT 99
[2021-06-15 09:40] VITALS: BP 114/75; PULSE 71; RESP 20; O2SAT 99
[2021-06-15 09:55] VITALS: BP 114/75; PULSE 66; RESP 18; TEMP 36.7; O2SAT 99
== END 2021-06-15 10:26 | disposition home or self-care (01) ==
PROVIDERS: Nurse Practitioner; PCP Internal Medicine; Visit Provider Internal Medicine Gastroenterology
PROC: (CPT 45380; principal; 2021-06-15 08:30)
DX: Z12.11 Encounter for screening for malignant neoplasm of colon (principal); D12.5 Benign neoplasm of sigmoid colon; K57.30 Diverticulosis of large intestine without perforation or abscess without bleeding; K29.80 Duodenitis without bleeding; K58.1 Irritable bowel syndrome with constipation; K21.9 Gastro-esophageal reflux disease without esophagitis; K29.50 Unspecified chronic gastritis without bleeding; J45.909 Unspecified asthma, uncomplicated; F41.1 Generalized anxiety disorder; Z79.899 Other long term (current) drug therapy
CPT/HCPCS: 45380; 43239; 81025; 88305; 88342; J2250

== ENCOUNTER → 2021-06-29 09:53 | Outpatient (BNVA) | payer OTHER, SELFPAY | PROVIDERS: PCP Internal Medicine; Visit Provider Nurse Practitioner Family ==

== ENCOUNTER 2021-07-02 07:52 | Outpatient (REF) | payer OTHER, SELFPAY ==
--- NOTE | ~2021-07-02 | XR_ITS ---
EXAMINATION: XR WRIST, LEFT CLINICAL INFORMATION: Pain COMPARISON: None TECHNIQUE: 4 views of the left wrist. FINDINGS: The bones and soft tissues are normal. No fracture. Alignment is anatomic with normal joint spaces. No erosions or abnormal soft tissue calcifications. XR/XR wrist LT min 3V IMPRESSION: Normal left wrist.
== END 2021-07-02 07:53 | disposition home or self-care (01) ==
LOC: HO.XRAY 07:52
PROVIDERS: Absent Provider Internal Medicine; PCP Internal Medicine; Visit Provider Nurse Practitioner
DX: M25.532 Pain in left wrist (principal)
CPT/HCPCS: 73110

== ENCOUNTER 2021-08-16 08:08 | Outpatient (REF) | payer OTHER, SELFPAY ==
[2021-08-16 10:59] LABS: Alanine Aminotransferase 14 U/L (0-31); Albumin Level 4.2 g/dL (3.5-5.0); Alkaline Phosphatase 62 U/L (39-117); Amylase 51 U/L (28-100); Aspartate Amino Transferase 14 U/L (5-31); Bilirubin Direct 0.2 mg/dL (0.0-0.5); Bilirubin Total 0.6 mg/dL (0.0-1.0); Lipase 14 U/L (8-78); Total Protein 7.5 g/dL (6.5-8.0)
[2021-08-16 11:08] LABS: TSH reflex Free T4 0.86 uIU/mL (0.32-4.0)
[2021-08-16 11:15] LABS: HBS Num1 59.05 mIU/mL (0-7.99); HBc Num1 0.08 S/CO (0.00-0.79); Hepatitis B Core Antibody Nonreactive (Nonreactive); ~HepC Num1 0.29 S/CO (0.00-0.79); ~Hepatitis B Surface Antibody REACTIVE (Nonreactive); ~Hepatitis C Antibody Nonreactive (Nonreactive)
[2021-08-16 11:27] LABS: HBsAGNum1 0.18 S/CO (0.00-0.99); Hepatitis B Surface Antigen Negative (Negative)
[2021-08-17 09:52] LABS: Hepatitis A Antibody IgM 0.19 Index (0-0.79); ~Hepatitis A Antibody IgM Nonreactive (Nonreactive)
[2021-08-22 20:00] LABS: Vitamin D 25-OH, D2 5 ng/mL; Vitamin D 25-OH, D3 16 ng/mL; Vitamin D 25-OH, Total 21 ng/mL (30-100)
== END 2021-08-16 08:09 | disposition home or self-care (01) ==
LOC: HO.LAB 08:08
PROVIDERS: PCP Internal Medicine; Referring Provider Internal Medicine; Visit Provider Nurse Practitioner Family
DX: R10.9 Unspecified abdominal pain (principal); R79.89 Other specified abnormal findings of blood chemistry; R19.7 Diarrhea, unspecified; E55.9 Vitamin D deficiency, unspecified
CPT/HCPCS: 36415; 80076; 82150; 82306; 83690; 84443; 86704; 86706; 86709; 86803; 87340

== ENCOUNTER 2021-08-17 09:12 | Outpatient (REF) | payer OTHER, SELFPAY ==
[2021-08-23 20:52] LABS: Pancreatic Elastase-1 >500 mcg/g
== END 2021-08-17 09:13 | disposition home or self-care (01) ==
LOC: HO.LNP 09:12
PROVIDERS: Visit Provider Nurse Practitioner Family
DX: R19.7 Diarrhea, unspecified (principal)
CPT/HCPCS: 82656

== ENCOUNTER 2021-09-12 14:10 | Outpatient (REF) | payer OTHER, SELFPAY ==
--- NOTE | ~2021-09-12 | XR_ITS ---
EXAMINATION: XR ANKLE, LEFT CLINICAL INFORMATION: Sprained ankle COMPARISON: None TECHNIQUE: AP, lateral, and mortise views of the left ankle. FINDINGS: No acute fracture or traumatic malalignment. There aren't marginal osteophytes along the lateral talofibular articulation. Small tibiotalar marginal osteophytes present anteriorly and posteriorly. Ankle mortise is congruent. Talar dome intact. Small plantar calcaneal enthesophyte. Mild soft tissue swelling lateral and anterior to the ankle joint. XR/XR ankle LT min 3V IMPRESSION: No acute fracture or dislocation. Soft tissue swelling anterior and lateral to the ankle.
== END 2021-09-12 14:11 | disposition home or self-care (01) ==
LOC: HO.XRAY 14:10
PROVIDERS: Absent Provider Internal Medicine; PCP Internal Medicine; Visit Provider Nurse Practitioner
DX: M25.572 Pain in left ankle and joints of left foot (principal)
CPT/HCPCS: 73610

== ENCOUNTER 2021-09-25 05:33 | Emergency (ER) | payer OTHER, SELFPAY ==
[2021-09-25 05:48] VITALS: BP 122/74; PULSE 80; RESP 18; TEMP 36.9; O2SAT 99; BMI 30.9
[2021-09-25 06:15] LABS: COVID-19 Test Negative (Negative)
[2021-09-25 06:26] LABS: IDNOW Serial# 16C4AD1C; Influenza A Negative (Negative); Influenza B2 Negative (Negative)
[2021-09-25] MEDS: Albuterol Sulfate (0.083%) 2.5 MG/3 ML VIAL.NEB 5 MG INHALE (06:40)
[2021-09-25 06:42] VITALS: PULSE 80; RESP 18; O2SAT 99
--- NOTE | 2021-09-25 07:09 | ED_ITS ---
HPI - General Adult General Chief complaint: Upper Respiratory Symptoms Stated complaint: congested, cough, sob, asthma Time Seen by Provider: 09/25/21 06:33 Source: patient Mode of arrival: ambulatory Limitations: no limitations History of Present Illness HPI narrative: 45 years old female came in for evaluation of upper respiratory symptoms. Symptoms started 4 days ago with nasal congestion, nonproductive coughing, chest tightness, shortness of breath. Patient declined fever, chills, or chest pain. No recent travel, no lower extremity swelling or tenderness, no history of DVT or PE. Patient had similar episode of the symptoms in the past with her history of asthma and seasonal allergy. Related Data Home Medications Medication Instructions Recorded Confirmed albuterol sulfate 2.5 mg INHALATION Q4H PRN 04/21/20 06/05/21 fluticasone propionate 110 2 puff INHALATION QAM 04/21/20 06/05/21 mcg/actuation HFA aerosol inhaler lorazepam 0.5 mg tablet 0.5 mg PO BID PRN 04/21/20 06/05/21 epinephrine 0.3 mg/0.3 mL 0.3 ml IM DIRECTED PRN 03/20/21 06/05/21 injection, auto-injector escitalopram oxalate 10 mg tablet 10 mg PO DAILY 08/16/21 lidocaine 5 % topical ointment TOPICAL PRN 08/16/21 naproxen 500 mg tablet 500 mg PO BID PRN 08/16/21 Previous Rx's Medication Instructions Recorded omeprazole 40 mg capsule,delayed 40 mg PO DAILY #30 cap 06/18/21 release sucralfate 100 mg/mL oral 10 ml PO BEDTIME #400 ml 06/18/21 suspension methylcellulose (laxative) 500 mg 500 mg PO DAILY #30 tab 06/29/21 tablet (Citrucel) linaclotide 145 mcg capsule 145 mcg PO DAILY #30 cap 08/16/21 (Linzess) linaclotide 72 mcg capsule 72 mcg PO DAILY #30 cap 08/16/21 (Linzess) cholecalciferol (vitamin D3) 50 50 mcg PO DAILY #30 cap 09/04/21 mcg (2,000 unit) capsule albuterol sulfate 2.5 mg (3 mL) INHALATION QID PRN 09/25/21 #75 ml prednisone 20 mg tablet 20 mg PO BID #10 tab 09/25/21 Allergies Allergy/AdvReac Type Severity Reaction Status Date / Time kiwi Allergy Anaphylaxis Verified 08/16/21 08:20 pear Allergy Anaphylaxis Verified 08/16/21 08:20 pineapple Allergy Anaphylaxis Verified 08/16/21 08:20 strawberry Allergy Anaphylaxis Verified 08/16/21 08:20 Review of Systems Review of Systems: All other systems are reviewed and are negative Constitutional: Reports as per HPI and Reports no additional constitutional co mplaints Eyes: Reports as per HPI and Reports no additional eye complaints Reports system reviewed and no additional complaints, except as documented Cardiovascular: Reports as per HPI and Reports no additional cardiovascular complaints Respiratory: Reports as per HPI and Reports no additional respiratory complaints Gastrointestinal: Reports as per HPI and Reports no additional gastrointestinal complaints Genitourinary: Reports no additional female genitourinary complaints Musculoskeletal: Reports no additional musculoskeletal complaints Skin/Breast: Reports system reviewed and no additional complaints, except as docu Psychiatric: Reports no additional psychiatric complaints Endocrine: Reports no additional endocrine complaints Hematologic/Lymphatic: Reports no additional hematologic/lymphatic complaints Allergic/Immunologic: Reports no additional allergic/immunologic complaints Reports system reviewed and no additional complaints, except as documented and Reports Abnormal speech present [facility] Past Medical History Medical History Anxiety Asthma Back pain COVID-19 vaccine administered GERD (gastroesophageal reflux disease) Lab test negative for COVID-19 virus Lipoma Pancreatitis Surgical History History of carpal tunnel release (~06/22/20) Hx of colonoscopy Hx of esophagogastroduodenoscopy Status post excision of lipoma Family History Family History Maternal Grandmother History of ovarian cancer Mother History of thyroid disease Social History Social History Alcohol intake: never Patient Tobacco Use Status: Never used Tobacco Advance Directives: No Advance Directives Information Provided: Yes Current occupational status: employed 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 Blood pressure normal. Heart rate normal. Respiration rate normal. Temperature normal. Oxygen saturation normal. Appearance: Alert. Oriented X3. No acute distress. Head: Normal external exam. Normocephalic. Atraumatic. No Storm signs noted. No raccoon eyes noted Eyes: PERRLA. EOMI. Conjunctiva and sclera normal. Eyelids normal. ENT: TM's Normal. Pharynx normal. Uvula midline. Moist mucous membranes. No trismus noted. No drooling noted. No muffled voice noted. Neck: Normal inspection. Neck supple. FROM. No adenopathy. Thyroid Normal. No meningeal signs. No neck mass noted. CVS: Normal heart rate and rhythm. Heart sound normal. No murmurs noted. Pulses normal throughout. Respiratory: No respiratory distress. Painless inspiration. Breath sounds normal. Bilateral diffuse mild expiratory wheezing with prolonged expiration, Chest nontender. No accessory muscle usage noted or decreased air movement noted. Abdomen: Soft and nontender. Bowel sounds normal in all 4 quadrants. No distention noted. No organomegaly noted. No visible injury noted. Back: No CVA tenderness. Full range of motion noted. Skin: Skin warm and dry. Normal skin color. Normal skin turgor. No rashes/lesions/lacerations noted. Extremities: No lower extremity edema. Extremities exhibit normal range of motion. Extremities nontender. Neuro: Oriented X 3. Cranial nerve exam: II-XII are grossly intact No motor deficit. No sensory deficit. Reflexes normal. Course Course Course Narrative: Assessment and plan. 45-year-old female history of asthma presented with allergy/asthma symptoms, physical exam is consistent with asthma exacerbation, patient feels better with bronchodilator and prednisone. Will discharge on bronchodilator and 5 days course of prednisone and follow up with PCP. Medical Decision Making Lab Data Labs: Lab Results 09/25/21 09/25/21 Range/Units 05:53 05:53 COVID-19 ([facility]) Negative (Negative) COVID-19 Clin Com See Note Influenza Type A ([facility]DRA) Negative (Negative) Influenza Type B ([facility]DRA) Negative (Negative) Influenza A & B Note See Note Discharge Plan Discharge Clinical Impression: Bronchitis Patient Disposition: Home, Self-Care Instructions: Acute Bronchitis (ED) Prescriptions: New albuterol sulfate 2.5 mg /3 mL (0.083 %) solution for nebulization 2.5 mg inhalation QID PRN (Reason: shortness of breath or wheezing) Qty: 75 0RF prednisone 20 mg tablet 20 mg PO BID Qty: 10 0RF No Action omeprazole 40 mg capsule,delayed release(DR/EC) 40 mg PO DAILY Qty: 30 2RF sucralfate 100 mg/mL suspension 10 ml PO BEDTIME Qty: 400 3RF cholecalciferol (vitamin D3) 50 mcg (2,000 unit) capsule 50 mcg PO DAILY Qty: 30 3RF fluticasone propionate 110 mcg/actuation HFA aerosol inhaler 2 puff inhalation QAM 0RF lorazepam 0.5 mg tablet 0.5 mg PO BID PRN (Reason: Anxiety) 0RF albuterol sulfate 2.5 mg /3 mL (0.083 %) solution for nebulization 2.5 mg inhalation Q4H PRN (Reason: Shortness Of Breath) 0RF epinephrine 0.3 mg/0.3 mL auto-injector 0.3 ml IM DIRECTED PRN (Reason: Allergic Reaction) 0RF Citrucel 500 mg tablet 500 mg PO DAILY Qty: 30 2RF Rx Instructions: take it with full glass of water naproxen 500 mg tablet 500 mg PO BID PRN (Reason: pain) 0RF lidocaine 5 % ointment topical PRN0RF escitalopram oxalate 10 mg tablet 10 mg PO DAILY 0RF Linzess 72 mcg capsule 72 mcg PO DAILY Qty: 30 2RF Linzess 145 mcg capsule 145 mcg PO DAILY Qty: 30 2RF Referrals: Aditi Matias MD [Primary Care Provider] -
[2021-09-25] MEDS: predniSONE 20 MG TABLET PO (07:36)
== END 2021-09-25 07:41 | disposition home or self-care (01) ==
PROVIDERS: Emergency Provider Emergency Medicine; PCP Internal Medicine
DX: J20.9 Acute bronchitis, unspecified (principal); R06.02 Shortness of breath; R05.9 Cough, unspecified; Z20.822 Contact with and (suspected) exposure to COVID-19; Z79.899 Other long term (current) drug therapy
CPT/HCPCS: 87502; 87635; 94640; 94644; 99283; 99284

== ENCOUNTER → 2021-10-22 12:54 | Outpatient (BNVA) | payer OTHER, SELFPAY | PROVIDERS: PCP Internal Medicine; Visit Provider Physician Assistant | DX: Z13.89 Encounter for screening for other disorder (principal) ==

== ENCOUNTER 2021-11-14 03:21 | Emergency (ER) | payer OTHER, SELFPAY ==
[2021-11-14 03:28] VITALS: BP 140/55; PULSE 82; RESP 18; TEMP 36.4; O2SAT 99; BMI 30.9
[2021-11-14 03:32] VITALS: BP 134/71; PULSE 78; RESP 18; O2SAT 98
--- NOTE | 2021-11-14 03:41 | ED_ITS ---
HPI - URI/Sore Throat General Chief Complaint: Dyspnea Stated Complaint: difficulty breathing, losing voice, asthmatic Time Seen by Provider: 11/14/21 03:22 Source: patient Mode of arrival: ambulatory Limitations: no limitations History of Present Illness MD elicited complaint: sore throat Pertinent past history: asthma Onset (ago): day(s) (6) Consistency: constant Severity: moderate Description of mucous: clear Able to tolerate fluids by mouth: Yes Exacerbating factors: swallowing Relieving factors: nothing Context: other (just had negative flu and COVID with her PCP) Associated symptoms: voice changes and sore throat Treatments prior to arrival: other (bronchodilator) Related Data Home Medications Medication Instructions Recorded Confirmed albuterol sulfate 2.5 mg INHALATION Q4H PRN 04/21/20 06/05/21 lorazepam 0.5 mg tablet 0.5 mg PO BID PRN 04/21/20 06/05/21 epinephrine 0.3 mg/0.3 mL 0.3 ml IM DIRECTED PRN 03/20/21 06/05/21 injection, auto-injector escitalopram oxalate 10 mg tablet 10 mg PO DAILY 08/16/21 lidocaine 5 % topical ointment TOPICAL PRN 08/16/21 naproxen 500 mg tablet 500 mg PO BID PRN 08/16/21 diclofenac sodium 1 % topical gel g TOPICAL 10/22/21 fluticasone propionate 220 1 puff PO BID 10/22/21 mcg/actuation HFA aerosol inhaler (Flovent HFA) Previous Rx's Medication Instructions Recorded omeprazole 40 mg capsule,delayed 40 mg PO DAILY #30 cap 06/18/21 release sucralfate 100 mg/mL oral 10 ml PO BEDTIME #400 ml 06/18/21 suspension linaclotide 145 mcg capsule 145 mcg PO DAILY #30 cap 08/16/21 (Linzess) linaclotide 72 mcg capsule 72 mcg PO DAILY #30 cap 08/16/21 (Linzess) cholecalciferol (vitamin D3) 50 50 mcg PO DAILY #30 cap 09/04/21 mcg (2,000 unit) capsule albuterol sulfate 2.5 mg (3 mL) INHALATION QID PRN 09/25/21 #75 ml amoxicillin 875 mg-potassium 1 tab PO BID #14 tab 11/14/21 clavulanate 125 mg tablet Allergies Allergy/AdvReac Type Severity Reaction Status Date / Time kiwi Allergy Anaphylaxis Verified 08/16/21 08:20 pear Allergy Anaphylaxis Verified 08/16/21 08:20 pineapple Allergy Anaphylaxis Verified 08/16/21 08:20 strawberry Allergy Anaphylaxis Verified 08/16/21 08:20 Review of Systems Review of Systems: Constitutional :no Fever, positive Chills, positive fatigue, no Malaise ENT/Mouth : positive sore throat, no runny nose Eyes: No Discharge Cardiovascular : No Chest Pain, No SOB Respiratory : No Cough, No Sputum Gastrointestinal : No Nausea, No Vomiting, No Diarrhea Genitourinary : No Dysuria, No Urinary Frequency Musculoskeletal : no Myalgia Skin : No rash Neuro : No Headache PMFSH Past Medical History Medical History Anxiety Asthma Back pain COVID-19 vaccine administered GERD (gastroesophageal reflux disease) Lab test negative for COVID-19 virus Lipoma Pancreatitis Surgical History History of carpal tunnel release (~06/22/20) Hx of colonoscopy Hx of esophagogastroduodenoscopy Status post excision of lipoma Family History Family History Maternal Grandmother History of ovarian cancer Mother History of thyroid disease Social History Social History Alcohol intake: never Patient Tobacco Use Status: Never used Tobacco Advance Directives: No Patient : No Current occupational status: employed 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 Oriented X3. No acute distress. Eyes: Pupils equal, round and reactive to light. ENT: Pharynx moderate generalized erythema uvula midline, hoarse voice Neck: mild anterior cervical lymphadenopathy CVS: Normal heart rate and rhythm. Pulses normal. Respiratory: No respiratory distress. Breath sounds normal. Abdomen: Soft and nontender. Skin: Skin warm and dry. Normal skin color. Extremities: No lower extremity edema. Neuro: Oriented X 3. No motor deficit. No sensory deficit. MDM - URI/Sore Throat MDM Narrative Medical decision making narrative: 45 yo female with hx of asthma here with c/o sore throat - has tonsilar swelling and lost her voice, mild anterior cervical lymphadenopathy, has good ROM no mu ffled voice able to tolerate secretions no evidence of abscess or deeper space infection Discharge Plan Discharge Clinical Impression: Acute tonsillitis Qualifiers: Pharyngitis/tonsillitis etiology: unspecified etiology Qualified Code(s): J03. 90 - Acute tonsillitis, unspecified Patient Disposition: Home, Self-Care Instructions: Tonsillitis (ED) Additional Instructions: return to ED for any worsening symptoms or concerns monitor symptoms make sure you are improving on medications Prescriptions: New amoxicillin-pot clavulanate 875-125 mg tablet 1 tab PO BID Qty: 14 0RF No Action omeprazole 40 mg capsule,delayed release(DR/EC) 40 mg PO DAILY Qty: 30 2RF sucralfate 100 mg/mL suspension 10 ml PO BEDTIME Qty: 400 3RF cholecalciferol (vitamin D3) 50 mcg (2,000 unit) capsule 50 mcg PO DAILY Qty: 30 3RF albuterol sulfate 2.5 mg /3 mL (0.083 %) solution for nebulization 2.5 mg inhalation QID PRN (Reason: shortness of breath or wheezing) Qty: 75 0RF lorazepam 0.5 mg tablet 0.5 mg PO BID PRN (Reason: Anxiety) 0RF albuterol sulfate 2.5 mg /3 mL (0.083 %) solution for nebulization 2.5 mg inhalation Q4H PRN (Reason: Shortness Of Breath) 0RF epinephrine 0.3 mg/0.3 mL auto-injector 0.3 ml IM DIRECTED PRN (Reason: Allergic Reaction) 0RF naproxen 500 mg tablet 500 mg PO BID PRN (Reason: pain) 0RF lidocaine 5 % ointment topical PRN0RF escitalopram oxalate 10 mg tablet 10 mg PO DAILY 0RF Linzess 72 mcg capsule 72 mcg PO DAILY Qty: 30 2RF Linzess 145 mcg capsule 145 mcg PO DAILY Qty: 30 2RF Flovent HFA 220 mcg/actuation HFA aerosol inhaler 1 puff PO BID 0RF diclofenac sodium 1 % gel topical 0RF Stand Alone Forms: Work/School Release
[2021-11-14] MEDS: Amoxicillin/Potassium Clav 875 MG TABLET PO (03:46)
[2021-11-14] MEDS: dexAMETHasone sod phosphate 4 MG/ML VIAL 8 MG PO (03:46)
== END 2021-11-14 04:00 | disposition home or self-care (01) ==
PROVIDERS: Emergency Provider Emergency Medicine; PCP Internal Medicine
DX: J03.90 Acute tonsillitis, unspecified (principal); J45.909 Unspecified asthma, uncomplicated
CPT/HCPCS: 99283; 99284; J1100

== ENCOUNTER 2021-11-20 04:33 | Emergency (ER) | payer OTHER, SELFPAY ==
[2021-11-20 04:41] VITALS: BP 142/80; PULSE 80; RESP 18; TEMP 37; O2SAT 97; BMI 31.8
--- NOTE | 2021-11-20 04:47 | ED_ITS ---
HPI - General Adult General Chief complaint: General Medical Stated complaint: throat pain/congested Time Seen by Provider: 11/20/21 04:47 Source: patient Mode of arrival: ambulatory Limitations: no limitations History of Present Illness HPI narrative: seen last week for tonsillitis was given antibiotics and decadron, felt like she was doing better, but since yesterday she feel worse. At times feels like her throat is closing. No fever. Onset (ago): week(s) Severity: mild Quality: other (hoarse voice) Pain Consistency: constant Relieving factors: none Exacerbating factors: none Associated symptoms: denies other symptoms Treatments prior to arrival: none Related Data Home Medications Medication Instructions Recorded Confirmed albuterol sulfate 2.5 mg inhalation Q4H PRN 04/21/20 06/05/21 Shortness Of Breath lorazepam 0.5 mg tablet 0.5 mg PO BID PRN Anxiety 04/21/20 06/05/21 epinephrine 0.3 mg/0.3 mL 0.3 ml IM DIRECTED PRN Allergic 03/20/21 06/05/21 injection, auto-injector Reaction escitalopram oxalate 10 mg tablet 10 mg PO DAILY 08/16/21 lidocaine 5 % topical ointment topical PRN 08/16/21 naproxen 500 mg tablet 500 mg PO BID PRN pain 08/16/21 diclofenac sodium 1 % topical gel g topical 10/22/21 fluticasone propionate 220 1 puff PO BID 10/22/21 mcg/actuation HFA aerosol inhaler (Flovent HFA) Previous Rx's Medication Instructions Recorded omeprazole 40 mg capsule,delayed 40 mg PO DAILY #30 caps 06/18/21 release sucralfate 100 mg/mL oral 10 ml PO BEDTIME #400 mL 06/18/21 suspension linaclotide 145 mcg capsule 145 mcg PO DAILY #30 caps 08/16/21 (Linzess) linaclotide 72 mcg capsule 72 mcg PO DAILY #30 caps 08/16/21 (Linzess) cholecalciferol (vitamin D3) 50 50 mcg PO DAILY #30 caps 09/04/21 mcg (2,000 unit) capsule albuterol sulfate 2.5 mg (3 mL) inhalation QID PRN 09/25/21 shortness of breath or wheezing #75 mL amoxicillin 875 mg-potassium 1 tab PO BID #14 tabs 11/14/21 clavulanate 125 mg tablet prednisone 20 mg tablet 60 mg PO DAILY #12 tabs 11/20/21 Allergies Allergy/AdvReac Type Severity Reaction Status Date / Time kiwi Allergy Anaphylaxis Verified 08/16/21 08:20 pear Allergy Anaphylaxis Verified 08/16/21 08:20 pineapple Allergy Anaphylaxis Verified 08/16/21 08:20 strawberry Allergy Anaphylaxis Verified 08/16/21 08:20 Review of Systems Constitutional: Constitutional: Reports no additional constitutional complaints Eyes: Eyes: Reports no additional eye complaints ENT: Denies dizziness Cardiovascular: Cardiovascular: Reports no additional cardiovascular complaints Respiratory: Respiratory: Reports as per HPI Gastrointestinal: Gastrointestinal: Reports no additional gastrointestinal complaints Genitourinary: Genitourinary: Reports no additional female genitourinary complaints Musculoskeletal: Musculoskeletal: Reports no additional musculoskeletal complaints Integumentary/Breasts: Skin/Breast: Denies rash Neurologic: Reports system reviewed and no additional complaints, except as documented, Denies dizziness and Denies Sensory deficit (Neuro) Psychiatric: Psychiatric: Denies anxiety PMFSH Past Medical History Medical History Anxiety Asthma Back pain COVID-19 vaccine administered GERD (gastroesophageal reflux disease) Lab test negative for COVID-19 virus Lipoma Pancreatitis Surgical History History of carpal tunnel release (~06/22/20) Hx of colonoscopy Hx of esophagogastroduodenoscopy Status post excision of lipoma Family History Family History Maternal Grandmother History of ovarian cancer Mother History of thyroid disease Social History Social History Alcohol intake: never Patient Tobacco Use Status: Never used Tobacco Advance Directives: No Current occupational status: employed 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 Exam ED Vital Signs: Vital Signs - 24 hr 11/20/21 04:41 Temperature 98.6 F Pulse Rate 80 Respiratory Rate 18 Blood Pressure 142/80 H Pulse Oximetry 97 Oxygen Delivery Method Room Air BMI result Body Mass Index 31.8 Const General: healthy appearing Nutritional Appearance: average body habitus Orientation/consciousness: oriented to person and patient oriented x3 Limitations: no limitations HENMT Head: Yes normal to inspection Ears: external ears normal General nose exam: Normal external nose present Mouth: Normal oral and palatal mucosa present and oropharynx normal Throat: Yes posterior oropharynx normal Eyes General: appearance normal, both eyes and all related structures Neck Neck: Yes normal visual inspection Chest Chest palpation & inspection: normal inspection of the chest Resp Auscultation: clear to auscultation bilaterally Cardio Jugular venous distension: no JVD Rate: regular rate Rhythm: regular rhythm Heart sounds: S1 normal heart sound present and S2 normal heart sound present GI Inspection: Yes normal to inspection Palpation (GI): Soft to palpation, nontender and No hepatosplenomegaly present Auscultation: normal bowel sounds General: Yes no CVA tenderness Back/Spine/Pelvis Back: no CVA tenderness Skin General skin exam: no rashes or lesions noted Neuro General: oriented to person and patient oriented x3 Cranial nerves: Yes CN's II-XII intact bilaterally Motor exam (neuro): 5/5 motor strength present throughout Sensory Exam: No Sensory deficit (Neuro) Extrem General: Yes normal to inspection Psych Appearance: grossly normal Course Reevaluation(s) Reevaluation #1: will place patient on 4 days of prednisone and have her follow up with ENT Time: 05:46 Medical Decision Making Lab Data Result diagrams: 11/20/21 04:49 11/20/21 04:49 Labs: Lab Results 11/20/21 11/20/21 11/20/21 Range/Units 04:49 04:49 04:49 WBC 8.2 (4.8-10.8) X10*3/uL RBC 4.43 (4.20-5.50) X10*6/uL Hgb 11.9 L (12.0-16.0) g/dl Hct 37.1 (37.0-47.0) % MCV 83.7 (80.0-98.0) fL MCH 26.9 L (27.0-33.0) pg MCHC 32.1 (31.0-35.0) g/dl RDW 13.5 (11.0-16.0) % Plt Count 262 (160-400) X10*3/uL MPV 10.2 (9.4-12.3) fL Immature Gran % (Auto) 0.6 H (0.0-0.4) % Neut % (Auto) 62.4 (45-73) % Lymph % (Auto) 27.4 (20-40) % [place] % (Auto) 8.1 (2-11) % Eos % (Auto) 1.1 (0-4) % Baso % (Auto) 0.4 (0-2) % Lymph # (Auto) 2.3 (1.2-4.9) X10*3/uL [place] # (Auto) 0.7 (0.1-1.2) X10*3/uL Eos # (Auto) 0.1 (0.0-0.4) X10*3/uL Baso # (Auto) 0.0 (0.0-0.2) X10*3/uL Abs Immat Gran (auto) 0.05 H (0.00-0.03) X10*3/uL Absolute Neuts (auto) 5.1 (2.0-8.3) x10*3/uL Absolute Nucleated RBC 0.000 (0.0-0.012) X10*3/uL Nucleated RBC % (auto) 0.0 (0.0-0.2) /100WBC Sodium 137 (135-145) mmol/L Potassium 3.6 (3.3-5.1) mmol/L Chloride 107 (96-108) mmol/L Carbon Dioxide 23 (22-29) mmol/L Anion Gap 11 L (12-20) BUN 9 (9-16) mg/dL Creatinine 0.80 (0.5-1.4) mg/dL Estim Creat Clear Calc 92.1 Estimated GFR > 60 Random Glucose 113 (60-115) mg/dL Calcium 8.8 (8.4-10.2) mg/dL Total Bilirubin 0.3 (0.0-1.0) mg/dL AST 14 (5-31) U/L ALT 18 (0-31) U/L Alkaline Phosphatase 64 (39-117) U/L Total Protein 7.2 (6.5-8.0) g/dL Albumin 4.1 (3.5-5.0) g/dL COVID-19 (ERICKSON) (Negative) COVID-19 Clin Com Monoscreen (Negative) Influenza Type A (SURENDRA) Negative (Negative) Influenza Type B (SURENDRA) Negative (Negative) Influenza A & B Note See Note S. pyogenes GrpA SURENDRA (Negative) 11/20/21 11/20/21 11/20/21 Range/Units 04:49 04:49 04:55 WBC (4.8-10.8) X10*3/uL RBC (4.20-5.50) X10*6/uL Hgb (12.0-16.0) g/dl Hct (37.0-47.0) % MCV (80.0-98.0) fL MCH (27.0-33.0) pg MCHC (31.0-35.0) g/dl RDW (11.0-16.0) % Plt Count (160-400) X10*3/uL MPV (9.4-12.3) fL Immature Gran % (Auto) (0.0-0.4) % Neut % (Auto) (45-73) % Lymph % (Auto) (20-40) % Yuba % (Auto) (2-11) % Eos % (Auto) (0-4) % Baso % (Auto) (0-2) % Lymph # (Auto) (1.2-4.9) X10*3/uL [place] # (Auto) (0.1-1.2) X10*3/uL Eos # (Auto) (0.0-0.4) X10*3/uL Baso # (Auto) (0.0-0.2) X10*3/uL Abs Immat Gran (auto) (0.00-0.03) X10*3/uL Absolute Neuts (auto) (2.0-8.3) x10*3/uL Absolute Nucleated RBC (0.0-0.012) X10*3/uL Nucleated RBC % (auto) (0.0-0.2) /100WBC Sodium (135-145) mmol/L Potassium (3.3-5.1) mmol/L Chloride (96-108) mmol/L Carbon Dioxide (22-29) mmol/L Anion Gap (12-20) BUN (9-16) mg/dL Creatinine (0.5-1.4) mg/dL Estim Creat Clear Calc Estimated GFR Random Glucose (60-115) mg/dL Calcium (8.4-10.2) mg/dL Total Bilirubin (0.0-1.0) mg/dL AST (5-31) U/L ALT (0-31) U/L Alkaline Phosphatase (39-117) U/L Total Protein (6.5-8.0) g/dL Albumin (3.5-5.0) g/dL COVID-19 (ERICKSON) Negative (Negative) COVID-19 Clin Com See Note Monoscreen Negative (Negative) Influenza Type A (SURENDRA) (Negative) Influenza Type B (SURENDRA) (Negative) Influenza A & B Note S. pyogenes GrpA SURENDRA Negative (Negative) Discharge Plan Discharge Clinical Impression: Pharyngitis Patient Disposition: Home, Self-Care Instructions: Pharyngitis (ED) Prescriptions: New prednisone 20 mg tablet 60 mg PO DAILY Qty: 12 0RF No Action omeprazole 40 mg capsule,delayed release(DR/EC) 40 mg PO DAILY Qty: 30 2RF sucralfate 100 mg/mL suspension 10 ml PO BEDTIME Qty: 400 3RF cholecalciferol (vitamin D3) 50 mcg (2,000 unit) capsule 50 mcg PO DAILY Qty: 30 3RF albuterol sulfate 2.5 mg /3 mL (0.083 %) solution for nebulization 2.5 mg inhalation QID PRN (Reason: shortness of breath or wheezing) Qty: 75 0RF amoxicillin-pot clavulanate 875-125 mg tablet 1 tab PO BID Qty: 14 0RF lorazepam 0.5 mg tablet 0.5 mg PO BID PRN (Reason: Anxiety) albuterol sulfate 2.5 mg /3 mL (0.083 %) solution for nebulization 2.5 mg inhalation Q4H PRN (Reason: Shortness Of Breath) epinephrine 0.3 mg/0.3 mL auto-injector 0.3 ml IM DIRECTED PRN (Reason: Allergic Reaction) naproxen 500 mg tablet 500 mg PO BID PRN (Reason: pain) lidocaine 5 % ointment topical PRN escitalopram oxalate 10 mg tablet 10 mg PO DAILY Linzess 72 mcg capsule 72 mcg PO DAILY Qty: 30 2RF Linzess 145 mcg capsule 145 mcg PO DAILY Qty: 30 2RF Flovent HFA 220 mcg/actuation HFA aerosol inhaler 1 puff PO BID diclofenac sodium 1 % gel topical Referrals: Evelio Koo [Physician] - 5 days Interventions: ED Discharge Assessment Last Done: 11/20/21 06:00 Discharge Date/Time: 11/20/21 06:04
[2021-11-20 05:06] LABS: Basophils Percent Auto 0.4 % (0-2); Eosinophils Absolute Auto 0.1 X10*3/uL (0.0-0.4); Eosinophils Percent Auto 1.1 % (0-4); Hematocrit 37.1 % (37.0-47.0); Hemoglobin 11.9 g/dl (12.0-16.0); Imm Gran Abs Auto 0.05 X10*3/uL (0.00-0.03); Imm Gran Pct Auto 0.6 % (0.0-0.4); Lymphocytes Absolute Auto 2.3 X10*3/uL (1.2-4.9); Lymphocytes Percent Auto 27.4 % (20-40); MANUAL DIFF FLAG NO; Mean Corpuscular HGB Conc 32.1 g/dl (31.0-35.0); Mean Corpuscular Hemoglobin 26.9 pg (27.0-33.0); Mean Corpuscular Volume 83.7 fL (80.0-98.0); Mean Platelet Volume 10.2 fL (9.4-12.3); Monocytes Absolute Auto 0.7 X10*3/uL (0.1-1.2); Monocytes Percent Auto 8.1 % (2-11); Neutrophils Absolute Auto 5.1 x10*3/uL (2.0-8.3); Neutrophils Percent Auto 62.4 % (45-73); Platelet Count 262 X10*3/uL (160-400); Red Blood Count 4.43 X10*6/uL (4.20-5.50); Red Cell Distribution Width 13.5 % (11.0-16.0); White Blood Count 8.2 X10*3/uL (4.8-10.8)
[2021-11-20 05:14] LABS: Strep A Nucleic Acid Negative (Negative)
[2021-11-20 05:20] LABS: COVID-19 Test Negative (Negative); IDNOW Serial# 16C4AD1C; Influenza A Negative (Negative); Influenza B2 Negative (Negative)
[2021-11-20 05:21] LABS: Monotest Negative (Negative)
[2021-11-20 05:24] LABS: Alanine Aminotransferase 18 U/L (0-31); Albumin Level 4.1 g/dL (3.5-5.0); Alkaline Phosphatase 64 U/L (39-117); Anion Gap 11 (12-20); Aspartate Amino Transferase 14 U/L (5-31); Bilirubin Total 0.3 mg/dL (0.0-1.0); Blood Urea Nitrogen 9 mg/dL (9-16); Calcium 8.8 mg/dL (8.4-10.2); Carbon Dioxide 23 mmol/L (22-29); Chloride 107 mmol/L (96-108); Creatinine Clr Calc Pharmacy 92.1; Estimated Glomerular Filt Rate > 60; Glucose Random 113 mg/dL (60-115); Potassium 3.6 mmol/L (3.3-5.1); Sodium 137 mmol/L (135-145); Total Protein 7.2 g/dL (6.5-8.0)
[2021-11-20] MEDS: predniSONE 20 MG TABLET 60 MG PO (05:58)
== END 2021-11-20 06:04 | disposition home or self-care (01) ==
PROVIDERS: Emergency Provider Emergency Medicine
DX: J02.9 Acute pharyngitis, unspecified (principal); Z20.822 Contact with and (suspected) exposure to COVID-19
CPT/HCPCS: 36415; 80053; 85025; 86308; 87502; 87635; 87651; 99282; 99283

== ENCOUNTER 2022-04-04 16:01 | Outpatient (REF) | payer OTHER, SELFPAY ==
--- NOTE | ~2022-04-04 | MM_ITS ---
EXAMINATION: MM SCREENING DIGITAL BREAST TOMOSYNTHESIS, BILATERAL CLINICAL INFORMATION: Screening. Asymptomatic. The lifetime risk of breast cancer based on the Tyrer-Cuzick Model is 6.9%. COMPARISON: Mammography: August 31, 2018 and studies dating back to May 08, 2015 TECHNIQUE: Digital breast tomosynthesis is performed in both the craniocaudal and mediolateral oblique views along with computer-aided detection (CAD). Synthesized 2D images are generated from the tomosynthesis. FINDINGS: There are scattered areas of fibroglandular density (ACR BI-RADS breast composition Category b). There are no significant masses, abnormal calcifications, or other abnormalities. MM/MM tomosynthesis screening BI IMPRESSION: No significant changes from prior exam. ASSESSMENT: BI-RADS 1: Negative RECOMMENDATION: Routine annual mammography screening. This patient's information was entered into a reminder system with a target due date for their next mammogram.
== END 2022-04-04 16:02 | disposition home or self-care (01) ==
LOC: HO.MAMMO 16:01
PROVIDERS: PCP Internal Medicine; Visit Provider Internal Medicine
DX: Z12.31 Encounter for screening mammogram for malignant neoplasm of breast (principal)
CPT/HCPCS: 77063; 77067

== ENCOUNTER 2022-04-11 06:46 | Outpatient (REF) | payer OTHER, SELFPAY ==
--- NOTE | ~2022-04-11 | XR_ITS ---
EXAMINATIONS: XR KNEE, RIGHT XR KNEE AP STANDING CLINICAL INFORMATION: Knee pain. COMPARISON: March 12, 2018. TECHNIQUES: Four views of the right knee. AP bilateral standing view of the knees was obtained. FINDINGS: Bones and soft tissues appear unremarkable. No fracture or joint effusion appreciated. Alignment is anatomic. Joint spaces are well maintained. No abnormal soft tissue calcification. XR/XR knee standing BI IMPRESSION: Unremarkable plain film examinations of the knees.
--- NOTE | ~2022-04-11 | XR_ITS ---
EXAMINATIONS: XR KNEE, RIGHT XR KNEE AP STANDING CLINICAL INFORMATION: Knee pain. COMPARISON: March 12, 2018. TECHNIQUES: Four views of the right knee. AP bilateral standing view of the knees was obtained. FINDINGS: Bones and soft tissues appear unremarkable. No fracture or joint effusion appreciated. Alignment is anatomic. Joint spaces are well maintained. No abnormal soft tissue calcification. XR/XR knee RT 2V IMPRESSION: Unremarkable plain film examinations of the knees.
== END 2022-04-11 06:47 | disposition home or self-care (01) ==
LOC: HO.HOSX 06:46
PROVIDERS: Visit Provider Physician Assistant
DX: M23.91 Unspecified internal derangement of right knee (principal); M54.16 Radiculopathy, lumbar region; M19.90 Unspecified osteoarthritis, unspecified site
CPT/HCPCS: 20610; 73560; 73565; J1040

== ENCOUNTER → 2022-04-26 08:18 | Outpatient (REF) | payer OTHER, SELFPAY ==
--- NOTE | ~2022-04-26 | NM_ITS ---
EXAMINATION: RADIONUCLIDE SOLID FOOD GASTRIC EMPTYING 4-HOUR STUDY CLINICAL INFORMATION: Gastric reflux disease without esophagitis. Epigastric pain. COMPARISON: No previous gastric emptying study is available for comparison. TECHNIQUE: A standard meal consisting of 4 oz of Egg Beaters brand tagged with 1 mCi Tc-99m Sulfur Colloid, 8 oz water and 2 slices of toast with jelly was administered orally to the patient. Images were obtained using a dual head gamma camera in the anterior and posterior projections over of the stomach immediately post ingestion and at hourly intervals up to 3 hours post ingestion. Images were not obtained at 4 hours due to the minimal retention at 3 hours. The anterior and posterior counts at each time interval were averaged using the geometric mean and expressed as percentage of the immediate post ingestion counts. FINDINGS: There is good visualization of activity in the stomach immediately post ingestion. As the study progresses, there is good clearance of activity from the stomach and visualization of progressively increasing small bowel activity. By the end of the study, there is almost no retention noted in the stomach. Retention in the stomach at each time interval was: 1 hour 47% (normal 37%-90%) 2 hours 26% (normal 30%-60%) 3 hours 3% 4 hours (Not Obtained) (normal 0%-10%) NM/NM gastric emptying study IMPRESSION: Normal solid food gastric emptying study.
== END ==
LOC: HO.NUCMED 08:18
PROVIDERS: PCP Internal Medicine; Visit Provider Nurse Practitioner Family
DX: K21.9 Gastro-esophageal reflux disease without esophagitis (principal)
CPT/HCPCS: 78264; A9541

== ENCOUNTER 2022-06-17 14:23 | Outpatient (REF) | payer OTHER, SELFPAY ==
--- NOTE | ~2022-06-17 | XR_ITS ---
EXAMINATION: XR FOOT, RIGHT CLINICAL INFORMATION: Right foot pain. COMPARISON: None TECHNIQUE: AP, lateral, and oblique views of the right foot. FINDINGS: The bones and soft tissues are normal. No fracture. Alignment is anatomic. Joint spaces are maintained. XR/XR foot RT min 3V IMPRESSION: Unremarkable right foot.
== END 2022-06-17 14:24 | disposition home or self-care (01) ==
LOC: HO.HOSX 14:23
PROVIDERS: PCP Internal Medicine; Visit Provider Physician Assistant
DX: M72.2 Plantar fascial fibromatosis (principal)
CPT/HCPCS: 73630

== ENCOUNTER 2022-06-24 08:00 | Outpatient (RCR) | payer OTHER, SELFPAY ==
--- NOTE | 2022-03-19 13:48 | MHC.PT.EP ---
[facility] [place] Office [place] Office [place] Office [address] Efren Holland [address] [phone] F: [phone] F: [phone] F: [phone] F: [phone] Physical Therapy Plan of Care Date of Evaluation: Date of Surgery: Diagnosis: trochanteric bursitis R hip Assessment: 46 y/o F referred to PT with R trochanteric bursitis. S/s consistent with R hip flexor tendinopathy with bursitis and ?postural syndrome resulting in pain and difficulty with sitting, driving in a car, transtiional movements, rolling in bed, squatting, and walking secondary to postural pelvic inlet ER and significant anterior tilt, decreased R LE strength, decreased R hip flex/ext ROM, increased tenderness, poor squat mechanics, and poor load transfer tests. She is a good candidate for PT secondary to lack of co-morbidities, PLOF, and motivation. Frequency and Duration: The patient will be seen 2x/week for 5 weeks Short Term Goals: 3 weeks Compliant with HEP Improve R hip extenstion to 10 degrees to faciliate gait Care Home Goals: 5 weeks 1. I with HEP and self management of sx 2. Pt will reports 50% decrease in pain R hip with sitting 3. Pt will be able to roll in bed with pain < 3/10 Treatment Plan: Modalities to reduce pain, spasms and effusion. Manual therapy to restore motion and function. Therapeutic exercise to improve strength and flexibility. Neuromuscular re-education for posture and balance. Therapeutic activities to return to functional activities of daily living. Electronically signed by: Flori Maxwell PT Please sign and return to therapist. Thank you for your referral.
== END 2022-08-02 15:24 | disposition home or self-care (01) ==
LOC: HO.PT 08:00
PROVIDERS: PCP Internal Medicine; Visit Provider Internal Medicine
DX: M70.61 Trochanteric bursitis, right hip (principal)
CPT/HCPCS: 97014; 97110; 97116; 97140; 97161; 97530

== ENCOUNTER → 2022-07-02 13:18 | Outpatient (BNVA) | payer OTHER, SELFPAY | PROVIDERS: PCP Internal Medicine; Visit Provider Nurse Practitioner Family | DX: Z13.89 Encounter for screening for other disorder (principal) ==

== ENCOUNTER 2022-07-10 13:27 | Outpatient (REF) | payer OTHER, SELFPAY ==
--- NOTE | ~2022-07-10 | XR_ITS ---
EXAMINATION: XR LUMBOSACRAL SPINE CLINICAL INFORMATION: Hip and back pain COMPARISON: None TECHNIQUE: 3 views of the lumbar spine FINDINGS: 5 nonrib-bearing lumbar-type vertebral bodies. Vertebral body heights are maintained. Alignment is maintained. Minimal degenerative change with small anterior disc osteophyte complexes. Disc space heights are maintained. Paravertebral soft tissues are unremarkable. XR/XR lumbar spine 2-3V IMPRESSION: * Minimal spondylosis of the lumbar spine, as above detailed.
== END 2022-07-10 13:28 | disposition home or self-care (01) ==
LOC: HO.XRAY 13:27
PROVIDERS: PCP Internal Medicine; Visit Provider Emergency Medicine
DX: M54.50 Low back pain, unspecified (principal); M25.551 Pain in right hip; M79.604 Pain in right leg
CPT/HCPCS: 72100

== ENCOUNTER 2022-07-29 08:05 | Emergency (ER) | payer OTHER, SELFPAY ==
--- NOTE | ~2022-07-29 | US_ITS ---
EXAMINATION: US ABDOMEN LIMITED CLINICAL INFORMATION: Right upper quadrant/epigastric pain. COMPARISON: Previous CT February 2021 TECHNIQUE: Real-time imaging of the right upper quadrant abdominal viscera. FINDINGS: PANCREAS: Normal. LIVER: Normal. The liver is normal in size. The liver contour is normal. Parenchymal echogenicity is normal. No focal hepatic lesion. There is no intrahepatic biliary duct dilatation seen. GALLBLADDER: Normal. The gallbladder is physiologically distended without evidence of stones, sludge, polyps, wall thickening or pericholecystic fluid. COMMON BILE DUCT: Normal in caliber measuring 0.6 cm in diameter. RIGHT KIDNEY: Normal. No hydronephrosis. No renal calculi or focal parenchymal lesions. The kidney measures 10.8 cm in maximum dimension. FREE FLUID: None. US/US abdomen limited IMPRESSION: Unremarkable exam.
[2022-07-29 08:17] VITALS: BP 113/82; PULSE 70; RESP 18; TEMP 36.1; O2SAT 98; BMI 30.9
[2022-07-29 08:35] LABS: MANUAL DIFF FLAG NO
[2022-07-29 08:39] LABS: Basophils Percent Auto 0.2 % (0-2); Eosinophils Absolute Auto 0.1 X10*3/uL (0.0-0.4); Eosinophils Percent Auto 0.8 % (0-4); Hematocrit 38.1 % (37.0-47.0); Hemoglobin 12.2 g/dl (12.0-16.0); Imm Gran Abs Auto 0.03 X10*3/uL (0.00-0.03); Imm Gran Pct Auto 0.3 % (0.0-0.4); Lymphocytes Percent Auto 20.5 % (20-40); Mean Corpuscular Hemoglobin 27.4 pg (27.0-33.0); Mean Corpuscular Volume 85.4 fL (80.0-98.0); Mean Platelet Volume 10.6 fL (9.4-12.3); Monocytes Absolute Auto 0.9 X10*3/uL (0.1-1.2); Monocytes Percent Auto 9.5 % (2-11); Neutrophils Absolute Auto 6.8 x10*3/uL (2.0-8.3); Neutrophils Percent Auto 68.7 % (45-73); Platelet Count 248 X10*3/uL (160-400); Red Blood Count 4.46 X10*6/uL (4.20-5.50); Red Cell Distribution Width 13.5 % (11.0-16.0); White Blood Count 9.9 X10*3/uL (4.8-10.8)
[2022-07-29 08:42] LABS: Appearance Urine Clear; Color Urine Yellow; Glucose Urine UA Negative (Negative); Leukocyte Esterase Urine Negative (Negative); Nitrite Urine Negative (Negative); Specific Gravity - Urine >= 1.030 (1.005-1.025); UMIC TRIGGER UACC YES; Urine Blood Trace (Negative); Urine Ketones Negative (Negative); Urine Protein Trace mg/dL (Neg-Trace)
[2022-07-29 08:47] LABS: Bacteria Urine None Seen (None Seen); Hyaline Casts Urine 0-2 /LPF (0-2); WBC Urine 0-5 /HPF (0-5)
[2022-07-29 09:05] LABS: Alanine Aminotransferase 18 U/L (0-31); Albumin Level 4.2 g/dL (3.5-5.0); Alkaline Phosphatase 67 U/L (39-117); Anion Gap 14 (12-20); Aspartate Amino Transferase 14 U/L (5-31); Bilirubin Direct < 0.2 mg/dL (0.0-0.5); Bilirubin Total 0.6 mg/dL (0.0-1.0); Blood Urea Nitrogen 18 mg/dL (9-16); Calcium 9.4 mg/dL (8.4-10.2); Carbon Dioxide 24 mmol/L (22-29); Chloride 106 mmol/L (96-108); Creatinine Clr Calc Pharmacy 87.6; Estimated Glomerular Filt Rate > 60; Glucose Random 91 mg/dL (60-115); Lipase 16 U/L (8-78); Sodium 140 mmol/L (135-145); Total Protein 7.2 g/dL (6.5-8.0)
[2022-07-29 11:05] VITALS: BP 114/65; PULSE 58; RESP 18; O2SAT 99
--- NOTE | 2022-07-29 11:07 | PC.NURSE ---
Pt reports epigastric pain since last Friday, intermittent. Worse after eating. Attempted Tums and Prilosec without relief. Nausea, however denies at this time and at times constipation over last week. +BS x 4 quads. Skin pwd.
--- NOTE | 2022-07-29 11:34 | ED.ABDPAIN ---
HPI - Abdominal Pain General Chief Complaint: Abdominal Pain Stated Complaint: GI issues Time Seen by Provider: 07/29/22 11:32 Source: patient Mode of arrival: ambulatory History of Present Illness HPI narrative: 46-year-old female with a past medical history of anxiety, asthma, GERD, pancreatitis, presenting to the ED complaining of intermittent epigastric abdominal pain x1 week with associated nausea. Reports pain worse with eating, with mild decreased p.o. intake. Has been taking home GI medications without relief. Denies fever, chills, vomiting, diarrhea, constipation, CP/SOB, dysuria/hematuria MD elicited complaint: abdominal pain Onset (ago): week(s) Related Data Home Medications Medication Instructions Recorded Confirmed lorazepam 0.5 mg tablet 0.5 mg PO BID PRN Anxiety 04/21/20 06/05/21 epinephrine 0.3 mg/0.3 mL 0.3 ml IM DIRECTED PRN Allergic 03/20/21 06/05/21 injection, auto-injector Reaction escitalopram oxalate 10 mg tablet 10 mg PO DAILY 08/16/21 naproxen 500 mg tablet 500 mg PO BID PRN pain 08/16/21 diclofenac sodium 1 % topical gel g topical 10/22/21 fluticasone propionate 220 1 puff PO BID 10/22/21 mcg/actuation HFA aerosol inhaler (Flovent HFA) albuterol sulfate 90 mcg/actuation 2 puff PO Q4-6H PRN 01/01/22 aerosol inhaler cetirizine 10 mg tablet 10 mg PO DAILY 04/01/22 fluticasone propionate 50 1 spray intranasal BID 04/01/22 mcg/actuation nasal spray,suspension Previous Rx's Medication Instructions Recorded linaclotide 145 mcg capsule 145 mcg PO DAILY #30 caps 08/16/21 (Linzess) cholecalciferol (vitamin D3) 50 50 mcg PO DAILY #30 caps 09/04/21 mcg (2,000 unit) capsule albuterol sulfate 2.5 mg/3 mL 2.5 mg (3 mL) inhalation QID PRN 09/25/21 (0.083 %) solution for nebulization shortness of breath or wheezing #75 mL esomeprazole magnesium 40 mg 40 mg PO DAILY #90 caps 07/02/22 capsule,delayed release (Nexium) polyethylene glycol 3350 17 17 g PO DAILY #510 grams 07/02/22 gram/dose oral powder (Miralax) aluminum-mag hydroxide-simethicone 5 ml PO 5XD PRN dyspepsia #30 mL 07/29/22 200 mg-200 mg-20 mg/5 mL oral susp (Maalox Advanced) ondansetron 4 mg disintegrating 4 mg PO Q8H PRN nausea and 07/29/22 tablet vomiting #10 tabs Allergies Allergy/AdvReac Type Severity Reaction Status Date / Time cinnamon Allergy Mild Anaphylaxis Verified 07/29/22 08:21 kiwi Allergy Anaphylaxis Verified 07/29/22 08:21 pineapple Allergy Anaphylaxis Verified 07/29/22 08:21 strawberry Allergy Anaphylaxis Verified 07/29/22 08:21 peaches Allergy Mild Anaphylaxis Uncoded 07/29/22 08:21 Review of Systems Review of Systems Constitutional:No Fever, No Chills, No Fatigue, No Malaise ENT/Mouth: No Ear Pain, No Nasal Congestion, No sore throat, No Rhinorrhea, No Swallowing Difficulty Eyes: No Eye Pain, No Swelling, No Redness, No Vision Changes Cardiovascular: No Chest Pain, No SOB, No Edema, No Palpitations Respiratory: No Cough, No Sputum, No Dyspnea Gastrointestinal: + Nausea, No Vomiting, No Diarrhea, No Constipation, + Abdominal pain Genitourinary: No Dysuria, No Urinary Frequency, No Hematuria, No Urinary Incontinence/retention, No Flank Pain Musculoskeletal: No joint pain, No Myalgias, No Joint Swelling Skin: No Skin Lesions, No rash Neuro: No Weakness, No Dizziness, No Headache Yes all other systems are reviewed and are negative Constitutional: Reports as per [facility] Past Medical History Attestation statement: The following information was validated with the patient. 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 ED Vital Signs: Vital Signs - 24 hr 07/29/22 08:17 07/29/22 11:05 07/29/22 12:45 Temperature 97.0 F 98.1 F Pulse Rate 70 58 69 Respiratory Rate 18 18 16 Blood Pressure 113/82 114/65 122/66 Pulse Oximetry 98 99 97 Oxygen Delivery Method Room Air Room Air Room Air 07/29/22 14:17 Temperature 98.1 F Pulse Rate 62 Respiratory Rate 14 Blood Pressure 108/60 Pulse Oximetry 98 Oxygen Delivery Method Room Air BMI result Body Mass Index 30.9 Const General: cooperative, healthy appearing and no acute distress Orientation/consciousness: patient oriented x3 Limitations: no limitations HENMT Head: Yes normal to inspection and Yes atraumatic Ears: hearing grossly normal bilaterally General nose exam: Normal external nose present Face and sinus: Yes normal facial exam Eyes General: appearance normal, both eyes and all related structures EOM: EOMs intact bilaterally Neck Neck: Yes normal visual inspection and Yes no meningeal signs Resp Effort & Inspection: normal respiratory effort and no respiratory distress Auscultation: clear to auscultation bilaterally Cardio Rate: regular rate Heart sounds: S1 normal heart sound present and S2 normal heart sound present GI Inspection: Yes normal to inspection Palpation (GI): Soft to palpation, Tenderness to palpation present (GI) in the epigastrum and in the RUQ; with no rebound tenderness, no guarding and not rigid General: Yes no CVA tenderness Back/Spine/Pelvis Back: no CVA tenderness Skin Rashes: no rashes Wounds: no wounds Neuro General: patient oriented x3, tone normal and no meningeal signs Gait exam (Neuro): Normal gait present Extrem General: Yes normal to inspection Course Course Course Narrative: -no leukocytosis. Labs otherwise unremarkable. Troponin negative. -UA not infected US abdomen limited IMPRESSION: Unremarkable exam. > patient tolerating p.o. crackers and eric genoveva in the ED without abdominal pain, nausea or vomiting. Results discussed with patient including worrisome signs and symptoms and strict return precautions, and when to return to the emergency department. Recommended close GI follow-up. They verbalized understanding and feel safe for discharge at this time. Medical Decision Making Medical Decision Making [facility] Narrative: 46-year-old female with a past medical history of anxiety, asthma, GERD, pancreatitis, presenting to the ED complaining of intermittent epigastric abdominal pain x1 week with associated nausea. On exam vital signs stable, NAD, nontoxic appearing, abdomen soft epigastric/RUQ tenderness to palpation, no rebound or guarding, no CVA tenderness. Concern for pancreatitis vs cholecystitis/lithiasis. Rule out ACS. Lower suspicion for renal stone/pyelo, appendicitis/diverticulitis Plan: EKG, labs, abdomen ultrasound, GI cocktail, re-evaluate Please refer to course for remaining clinical decision making, interpretation of labs/imaging results, and discussions with consultants and/or family members. Differential Diagnosis Differential Diagnoses: The differential diagnosis associated with the presentation includes As above Lab Data [facility] Lab Attestation statement: I reviewed the patient's lab results. 07/29/22 08:32 07/29/22 08:32 Labs: Lab Results 07/29/22 07/29/22 07/29/22 Range/Units 08:32 08:32 08:32 WBC 9.9 (4.8-10.8) X10*3/uL RBC 4.46 (4.20-5.50) X10*6/uL Hgb 12.2 (12.0-16.0) g/dl Hct 38.1 (37.0-47.0) % MCV 85.4 (80.0-98.0) fL MCH 27.4 (27.0-33.0) pg MCHC 32.0 (31.0-35.0) g/dl RDW 13.5 (11.0-16.0) % Plt Count 248 (160-400) X10*3/uL MPV 10.6 (9.4-12.3) fL Immature Gran % (Auto) 0.3 (0.0-0.4) % Neut % (Auto) 68.7 (45-73) % Lymph % (Auto) 20.5 (20-40) % Pope % (Auto) 9.5 (2-11) % Eos % (Auto) 0.8 (0-4) % Baso % (Auto) 0.2 (0-2) % Lymph # (Auto) 2.0 (1.2-4.9) X10*3/uL Pope # (Auto) 0.9 (0.1-1.2) X10*3/uL Eos # (Auto) 0.1 (0.0-0.4) X10*3/uL Baso # (Auto) 0.0 (0.0-0.2) X10*3/uL Abs Immat Gran (auto) 0.03 (0.00-0.03) X10*3/uL Absolute Neuts (auto) 6.8 (2.0-8.3) x10*3/uL Absolute Nucleated RBC 0.000 (0.0-0.012) X10*3/uL Nucleated RBC % (auto) 0.0 (0.0-0.2) /100WBC Sodium 140 (135-145) mmol/L Potassium 4.0 (3.3-5.1) mmol/L Chloride 106 (96-108) mmol/L Carbon Dioxide 24 (22-29) mmol/L Anion Gap 14 (12-20) BUN 18 H (9-16) mg/dL Creatinine 0.82 (0.5-1.4) mg/dL Estim Creat Clear Calc 87.6 Estimated GFR > 60 Random Glucose 91 (60-115) mg/dL Calcium 9.4 D (8.4-10.2) mg/dL Total Bilirubin 0.6 (0.0-1.0) mg/dL Direct Bilirubin < 0.2 (0.0-0.5) mg/dL AST 14 (5-31) U/L ALT 18 (0-31) U/L Alkaline Phosphatase 67 (39-117) U/L Troponin I High Sens (<3.5-17.0) ng/L Total Protein 7.2 (6.5-8.0) g/dL Albumin 4.2 (3.5-5.0) g/dL Lipase 16 (8-78) U/L Urine Color Yellow Urine Appearance Clear Urine pH 6.0 (5.0-9.0) Ur Specific Rickreall >= 1.030 H (1.005-1.025) Urine Protein Trace (Neg-Trace) mg/dL Urine Glucose (UA) Negative (Negative) mg/dL Urine Ketones Negative (Negative) mg/dL Urine Blood Trace H (Negative) Urine Nitrite Negative (Negative) Ur Leukocyte Esterase Negative (Negative) Urine RBC 3-5 H (0-2) /HPF Urine WBC 0-5 (0-5) /HPF Ur Squamous Epith Cells 3-5 (0-2) /HPF Urine Bacteria None Seen (None Seen) Hyaline Casts 0-2 (0-2) /LPF 07/29/22 Range/Units 13:13 WBC (4.8-10.8) X10*3/uL RBC (4.20-5.50) X10*6/uL Hgb (12.0-16.0) g/dl Hct (37.0-47.0) % MCV (80.0-98.0) fL MCH (27.0-33.0) pg MCHC (31.0-35.0) g/dl RDW (11.0-16.0) % Plt Count (160-400) X10*3/uL MPV (9.4-12.3) fL Immature Gran % (Auto) (0.0-0.4) % Neut % (Auto) (45-73) % Lymph % (Auto) (20-40) % Pope % (Auto) (2-11) % Eos % (Auto) (0-4) % Baso % (Auto) (0-2) % Lymph # (Auto) (1.2-4.9) X10*3/uL Pope # (Auto) (0.1-1.2) X10*3/uL Eos # (Auto) (0.0-0.4) X10*3/uL Baso # (Auto) (0.0-0.2) X10*3/uL Abs Immat Gran (auto) (0.00-0.03) X10*3/uL Absolute Neuts (auto) (2.0-8.3) x10*3/uL Absolute Nucleated RBC (0.0-0.012) X10*3/uL Nucleated RBC % (auto) (0.0-0.2) /100WBC Sodium (135-145) mmol/L Potassium (3.3-5.1) mmol/L Chloride (96-108) mmol/L Carbon Dioxide (22-29) mmol/L Anion Gap (12-20) BUN (9-16) mg/dL Creatinine (0.5-1.4) mg/dL Estim Creat Clear Calc Estimated GFR Random Glucose (60-115) mg/dL Calcium (8.4-10.2) mg/dL Total Bilirubin (0.0-1.0) mg/dL Direct Bilirubin (0.0-0.5) mg/dL AST (5-31) U/L ALT (0-31) U/L Alkaline Phosphatase (39-117) U/L Troponin I High Sens < 3.5 (<3.5-17.0) ng/L Total Protein (6.5-8.0) g/dL Albumin (3.5-5.0) g/dL Lipase (8-78) U/L Urine Color Urine Appearance Urine pH (5.0-9.0) Ur Specific Rickreall (1.005-1.025) Urine Protein (Neg-Trace) mg/dL Urine Glucose (UA) (Negative) mg/dL Urine Ketones (Negative) mg/dL Urine Blood (Negative) Urine Nitrite (Negative) Ur Leukocyte Esterase (Negative) Urine RBC (0-2) /HPF Urine WBC (0-5) /HPF Ur Squamous Epith Cells (0-2) /HPF Urine Bacteria (None Seen) Hyaline Casts (0-2) /LPF Independent Interpretation I performed an independent interpretation of an: EKG Interpretation: My interpretation EKG is normal sinus rhythm at a rate of 62. VA interval 148. QTC 406. No STEMI. Nonischemic Radiology Impression Discussion of test interpretation with radiology: I have reviewed the radiologist's reading. External Record Review External record reviewed: Outpatient record and Prior outpatient labs Medications Administered Discontinued Medications Generic Name Dose Route Start Last Admin Trade Name Freq PRN Reason Stop Dose Admin Al Hydroxide/Mg Hydroxide 30 ml 07/29/22 11:42 07/29/22 11:58 Magnesium Hydrox/Alum Hydrox 30 Ml Oral.Susp PO 07/29/22 11:43 30 ml ONCE ONE Administration Famotidine 20 mg 07/29/22 11:42 07/29/22 11:57 Famotidine 20 Mg Tablet PO 07/29/22 11:43 20 mg ONCE ONE Administration Lidocaine HCl 15 ml 07/29/22 11:42 07/29/22 11:58 Lidocaine Hcl Viscous 2 % 15 Ml Solution MUCOUS MEM 07/29/22 11:43 15 ml ONCE ONE Administration Discharge Plan Discharge Clinical Impression: Abdominal pain Patient Disposition: Home, Self-Care Instructions: Abdominal Pain (ED) Additional Instructions: Your blood work was reassuring. Her ultrasound is unremarkable. Please follow-up with her GI doctor Practice a bland diet, avoid spicy food, sweets, chocolate, caffeine Zofran as an antinausea medication take as needed. Maalox to help with acid reduction. Continue other home prescribed medications If symptoms persist or worsen return to the emergency department Prescriptions: New ondansetron 4 mg tablet,disintegrating 4 mg PO Q8H PRN (Reason: nausea and vomiting) Qty: 10 0RF alum-mag hydroxide-simeth [Maalox Advanced] 200-200-20 mg/5 mL suspension 5 ml PO 5XD PRN (Reason: dyspepsia) Qty: 30 0RF Rx Instructions: administer between meals and at bedtime No Action cholecalciferol (vitamin D3) 50 mcg (2,000 unit) capsule 50 mcg PO DAILY Qty: 30 3RF albuterol sulfate 2.5 mg /3 mL (0.083 %) solution for nebulization 2.5 mg inhalation QID PRN (Reason: shortness of breath or wheezing) Qty: 75 0RF lorazepam 0.5 mg tablet 0.5 mg PO BID PRN (Reason: Anxiety) epinephrine 0.3 mg/0.3 mL auto-injector 0.3 ml IM DIRECTED PRN (Reason: Allergic Reaction) albuterol sulfate 90 mcg/actuation HFA aerosol inhaler 2 puff PO Q4-6H PRN naproxen 500 mg tablet 500 mg PO BID PRN (Reason: pain) escitalopram oxalate 10 mg tablet 10 mg PO DAILY Linzess 145 mcg capsule 145 mcg PO DAILY Qty: 30 2RF Flovent HFA 220 mcg/actuation HFA aerosol inhaler 1 puff PO BID diclofenac sodium 1 % gel topical fluticasone propionate 50 mcg/actuation spray,suspension 1 spray intranasal BID cetirizine 10 mg tablet 10 mg PO DAILY esomeprazole magnesium [Nexium] 40 mg capsule,delayed release(DR/EC) 40 mg PO DAILY Qty: 90 3RF polyethylene glycol 3350 [Miralax] 17 gram/dose powder 17 g PO DAILY Qty: 510 2RF Referrals: [facility] [Provider Group] Aditi Matias MD [Primary Care Provider] - Interventions: ED Discharge Assessment Last Done: 07/29/22 14:28 Discharge Date/Time: 07/29/22 14:29
--- NOTE | 2022-07-29 11:42 | ECG_ITS ---
Test Reason : EPIGASTRIC PAIN Blood Pressure : / mmHG Vent. Rate : 062 BPM Atrial Rate : 062 BPM P-R Int : 148 ms QRS Dur : 076 ms QT Int : 400 ms P-R-T Axes : 063 039 037 degrees QTc Int : 406 ms Normal sinus rhythm Normal ECG When compared with ECG of 12-JAN-2019 04:33, No significant change was found Referred By: Marya Rodriguez Electronically Signed By:KADIE CROW
[2022-07-29] MEDS: Famotidine 20 MG TABLET PO (11:57)
[2022-07-29] MEDS: Lidocaine HCl Viscous 2 % 15 ML SOLUTION MUCOUS MEM (11:58)
[2022-07-29] MEDS: Magnesium Hydrox/Alum Hydrox 30 ML ORAL.SUSP PO (11:58)
[2022-07-29 12:45] VITALS: BP 122/66; PULSE 69; RESP 16; TEMP 36.7; O2SAT 97
[2022-07-29 13:43] LABS: Troponin-I High Sensitivity < 3.5 ng/L (<3.5-17.0)
[2022-07-29 14:17] VITALS: BP 108/60; PULSE 62; RESP 14; TEMP 36.7; O2SAT 98
== END 2022-07-29 14:29 | disposition home or self-care (01) ==
PROVIDERS: Physician Assistant; Emergency Provider Emergency Medicine; PCP Internal Medicine
DX: R10.13 Epigastric pain (principal); R11.2 Nausea with vomiting, unspecified; R10.11 Right upper quadrant pain; Z79.899 Other long term (current) drug therapy
CPT/HCPCS: 36415; 76705; 80053; 81001; 82248; 83690; 84484; 85025; 93005; 99284

== ENCOUNTER 2022-08-08 12:29 | Outpatient (REF) | payer OTHER, SELFPAY ==
--- NOTE | ~2022-08-08 | XR_ITS ---
EXAMINATION: XR HIP, RIGHT CLINICAL INFORMATION: Pain COMPARISON: None TECHNIQUE: Two views of the right hip. FINDINGS: Bones and soft tissues are normal. No fracture. Alignment is anatomic. Hip joint space is maintained. XR/XR hip RT w PEL1V IMPRESSION: Unremarkable right hip exam.
== END 2022-08-08 12:30 | disposition home or self-care (01) ==
LOC: HO.HOSX 12:29
PROVIDERS: Visit Provider Physician Assistant
DX: M25.551 Pain in right hip (principal); M54.16 Radiculopathy, lumbar region
CPT/HCPCS: 73502

== ENCOUNTER → 2022-10-21 13:59 | Outpatient (BNVA) | payer OTHER, SELFPAY | PROVIDERS: PCP Internal Medicine; Visit Provider Nurse Practitioner Family ==

== ENCOUNTER 2022-10-29 07:56 | Outpatient (REF) | payer OTHER, SELFPAY ==
--- NOTE | ~2022-10-29 | XR_ITS ---
EXAMINATION: XR SACROILIAC JOINTS CLINICAL INFORMATION: Sacroiliac disorder COMPARISON: Previous right hip x-ray August 2022 TECHNIQUE: 3 views of the sacroiliac joints FINDINGS: Bones and soft tissues are normal. No fracture. Alignment is anatomic. Sacroiliac joint spaces are well-maintained without erosions or surrounding sclerosis. XR/XR sacroiliac joint min 3V IMPRESSION: Normal sacroiliac joints.
== END 2022-10-29 07:57 | disposition home or self-care (01) ==
LOC: HO.XRAY 07:56
PROVIDERS: PCP Internal Medicine; Visit Provider Nurse Practitioner Family
DX: M53.3 Sacrococcygeal disorders, not elsewhere classified (principal)
CPT/HCPCS: 72202

== ENCOUNTER 2022-11-12 05:57 | Outpatient (REF) | payer OTHER, SELFPAY ==
--- NOTE | ~2022-11-12 | FL_ITS ---
EXAMINATION: XR FLUOROSCOPY WITH IMAGES CLINICAL INFORMATION: Sacrococcygeal disorders, not elsewhere classified. COMPARISON: None available. TECHNIQUE: Fluoroscopy Supervised By: Dr. Estrada. Fluoroscopy Time: 0.1 min. Cumulative Dose: 4.69 mGy. DAP: 0.0815 Gycm2. Images: 1. FINDINGS: Image demonstrates needle placement and contrast injection of the right sacroiliac joint. FL/FL guidance in treatment room IMPRESSION: Fluoroscopy guidance for right sacroiliac joint injection.
== END 2022-11-12 05:58 | disposition home or self-care (01) ==
LOC: CF 05:57
PROVIDERS: Visit Provider Anesthesiology
DX: M53.3 Sacrococcygeal disorders, not elsewhere classified (principal); M25.551 Pain in right hip; M47.816 Spondylosis without myelopathy or radiculopathy, lumbar region; M62.838 Other muscle spasm
CPT/HCPCS: 27096; J2795

== ENCOUNTER 2022-11-13 11:35 | Outpatient (REF) | payer OTHER, SELFPAY ==
--- NOTE | ~2022-11-13 | XR_ITS ---
EXAMINATION: XR WRIST, RIGHT CLINICAL INFORMATION: Right wrist pain since gardening last month. COMPARISON: Radiographs right hand 06/27/2020 TECHNIQUE: Right wrist is imaged in 4 views including navicular projection. FINDINGS: There is no acute or healing fracture, dislocation, destructive process. The bony mineralization is normal. There is no periostitis. The ulnar variance is neutral. There is no joint narrowing or erosive change. No chondrocalcinosis. The pronator quadratus fat pad appears normal. XR/XR wrist RT w scaphoid IMPRESSION: Normal right wrist.
== END 2022-11-13 11:36 | disposition home or self-care (01) ==
LOC: HO.HHCX 11:35
PROVIDERS: Visit Provider Student in an Organized Health Care Education/Training Program
DX: M25.531 Pain in right wrist (principal)
CPT/HCPCS: 73110

== ENCOUNTER → 2022-11-14 13:23 | Outpatient (BNVA) | payer OTHER, SELFPAY | PROVIDERS: PCP Internal Medicine; Visit Provider Nurse Practitioner Family ==

== ENCOUNTER 2022-12-18 17:44 | Outpatient (REF) | payer OTHER, SELFPAY | END 2022-12-18 17:45 | disposition home or self-care (01) | LOC: HO.MRI 17:44 | PROVIDERS: PCP Internal Medicine; Visit Provider Nurse Practitioner Family | DX: Z13.89 Encounter for screening for other disorder (principal) ==

== ENCOUNTER 2023-01-15 11:30 | Outpatient (AMB) | payer OTHER, SELFPAY ==
[2023-01-15 12:06] VITALS: BMI 31.6
--- NOTE | 2023-01-15 12:06 | A.OFFVIS_ITS ---
Intake Vital Signs 01/15/23 12:06 Height 5 ft 4 in Weight 184 lb BMI 31.6 Intake Visit Reasons: ov- Right hand pain Intake Note: Joan 47 yr old female who is right hand dominant, presents today for her wrist dorsum aspect started in October while doing lawn work. Pain with rotation and ROM of wrist. At times her wrist swells. Also is having radiating pain, numbness and tingling in her index finger. Difficultly with pushing, lifting and typing. Patient has tried wrapping her wrist for 4 weeks with an jose wrap with no improvement. Allergies cinnamon Allergy (Mild, Verified 01/15/23 12:13) Anaphylaxis kiwi Allergy (Verified 01/15/23 12:13) Anaphylaxis pineapple Allergy (Verified 01/15/23 12:13) Anaphylaxis strawberry Allergy (Verified 01/15/23 12:13) Anaphylaxis peaches Allergy (Mild, Uncoded 01/15/23 12:13) Anaphylaxis HPI ov- Right hand pain HPI Details Joan is a 47 year old right hand dominant woman who presents with complaints of ~3 months right wrist pain She says she was doing yard work in October of this year when she began to have pain in the dorsal aspect of the right wrist. She says this pain began as she was doing frequent pushing and pulling activities. She complains of pain with pushing, pulling, lifting, and typing activities, as well as with ROM. She says this is very painful and motion causes her wrist to swell. She complains of radiating pain, numbness, and tingling only into her index finger. She says she has been wearing a wrist JOSE wrap for ~1 month, but no other treatment. 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 Review of Systems Const All systems reviewed & are unremarkable except as noted in HPI and below Physical Exam Vital Signs: BMI result Body Mass Index 31.6 Const General: cooperative, healthy appearing and no acute distress Orientation/consciousness: patient oriented x3 HEENT Head: Yes normocephalic and Yes atraumatic Eyes EOM: EOMs intact bilaterally Resp Effort & Inspection: normal respiratory effort and able to speak in complete sentences Cardio Jugular venous distension: no JVD Skin General skin exam: turgor normal Rashes: no rashes Neuro General: patient oriented x3 Extrem Other: Evaluation of Right Upper Extremity: The patient is alert, oriented, and in no acute distress Neuro: Numbness in the index finger today in clinic. Normal sensation to the tips of all other digits No thenar or intrinsic wasting Good APB muscle belly firing and good finger cross Vascular: Cap refill brisk ROM: She can make a fist with encouragement and extend all her digits No subluxation of the ECU tendon with pronosupination Most tender over ECU tendon, extending from ulnar styloid proximally Quite tender to the finger and wrist extensors, but interestingly at the myotendinous junctions in the mid-forearm More tender in the dorsal forearm than over tendons in the wrist Pain referred to myotendinous junction with resisted finger or wrist extension No tenderness over the DRUJ, DRUJ stable on exam Radiographs: 3 views of the right hand were taken and viewed by me today in clinic. They show [ ] Psych Appearance: grossly normal Affect: normal affect Attitude: cooperative Office Procedures Fracture Care Details: No fracture, injection Fracture Billing Code: Fracture Billing Code Results Reviewed Results Reviewed: 01/15/23 12:27 Lidocaine HCl 1 % [Xylocaine 1 %] 2 ml .ROUTE .STK-MED ONE dexAMETHasone sod phosphate [Decadron] 4 mg .ROUTE .STK-MED ONE Assessment & Plan Assessment & Plan (1) Extensor carpi ulnaris tendinitis: Code(s): M77.8 - Other enthesopathies, not elsewhere classified (2) Bilateral hand numbness: Code(s): R20.0 - Anesthesia of skin (3) History of carpal tunnel surgery of right wrist: Code(s): Z98.890 - Other specified postprocedural states Plan Assessment & Plan: 1. Right ECU tendinitis Onset: 10/2022 This is her most symptomatic complaint I educated her about this condition I discussed operative and non-operative treatment options The patient would like to proceed with an injection I recommend NSAIDs for pain relief, and discussed their safe usage I ordered OT hand therapy to work on ROM, desensitization, and normal function Injection #1: The risks and benefits of a steroid injection including but not limited to risk of damage to blood vessels, nerves, tendons, infection, skin bleaching, failure to improve symptoms, increased pain, and possible need for further injections or other intervention were discussed with the patient and the patient wishes to proceed with the steroid injection. Once consent was obtained, I sterilely prepped the area over the ECU tendon sheath of the right wrist. I then injected the ECu tendon sheath with a combination of 1 mL of dexamethasone (4mg/ml), and 1% lidocaine. The patient tolerated the procedure well with no complications and good resolution of their symptoms prior to leaving clinic. 2. Bilateral hand numbness, S/P right carpal tunnel release DOS: 07/03/20 She complains of numbness in the median nerve distribution of the left hand, as well as the right index finger I ordered a bilateral NCS to assess for peripheral neuropathy vs cervical radi culopathy She will follow up when completed for review Scribed for Gretchen Thorpe MD by Truman Sinha, medical genetics director, on 01/15/23 at 12:30 PM, EST. Orders: Orders XR hand RT min 3V Today M79.641 - Pain in right hand NE nerve conduction velocity Today R20.0 - Anesthesia of skin, R20.2 - Paresthesia of skin OT Evaluation and Treatment Today M77.8 - Other enthesopathies, not elsewhere classified Coding Level of Care Code New Pt Level 3 (81400) Diagnoses Extensor carpi ulnaris tendinitis M77.8 Bilateral hand numbness R20.0 History of carpal tunnel surgery of right wrist Z98.890 CPT Codes Fracture Care - Fracture Billing Code: Fracture Billing Code ([id number])
== END 2023-01-15 12:43 | disposition home or self-care (01) ==
PROVIDERS: PCP Internal Medicine; Visit Provider Orthopaedic Surgery
DX: M77.8 Other enthesopathies, not elsewhere classified (principal); M67.833 Other specified disorders of tendon, right wrist
CPT/HCPCS: 20550; 99214

== ENCOUNTER 2023-01-15 12:45 | Outpatient (REF) | payer OTHER, SELFPAY ==
--- NOTE | ~2023-01-15 | XR_ITS ---
EXAMINATION: XR HAND, RIGHT CLINICAL INFORMATION: Right hand pain COMPARISON: Right wrist series 11/13/2022. TECHNIQUE: PA, lateral, and oblique views of the right hand. FINDINGS: No evidence for acute fracture or dislocation. There is slight narrowing of the IP joints of the fifth digit. No erosive process. Metacarpals are intact. XR/XR hand RT min 3V IMPRESSION: No acute process. Slight narrowing of the IP joints of the fifth digit.
== END 2023-01-15 12:46 | disposition home or self-care (01) ==
LOC: HO.HOSX 12:45
PROVIDERS: Visit Provider Orthopaedic Surgery
DX: M79.641 Pain in right hand (principal); M77.8 Other enthesopathies, not elsewhere classified; R20.0 Anesthesia of skin; Z98.890 Other specified postprocedural states
CPT/HCPCS: 20550; 73130; J1100

== ENCOUNTER 2023-01-30 13:58 | Outpatient (REF) | payer OTHER, SELFPAY ==
--- NOTE | 2023-01-30 14:01 | EMG_ITS ---
Chief complaint: History of EMG 05/2020 reported mild right Carpal Tunnel Syndrome and normal left side. Right Carpal Tunnel Syndrome surgery 06/[address] Thorpe. Was doing well until gardening incident last October. Reason for referral: Evaluate for neuropathy versus radiculopathy Referred by: Dr. Thorpe Procedure done: Bilateral upper extremities NCS/EMG Precautions and/or limitations: None The limb temperature was monitored continuously and remained between 32-36 degrees C during the performance of the NCS. Nerve Conduction Studies Anti Sensory Summary Table ?Stim Site NR Onset (ms) Norm Onset (ms) Peak (ms) Norm Peak (ms) O-P Amp (?V) Norm O-P Amp Site1 Site2 Delta-0 (ms) Dist (cm) Justin (m/s) Norm Justin (m/s) Left Median Anti Sensory (2nd Digit) Wrist ? 2.7 3.4 <3.6 49.3 >10 Wrist 2nd Digit 2.7 14.0 52 Right Median Anti Sensory (2nd Digit) Wrist ? 2.6 3.2 <3.6 52.3 >10 Wrist 2nd Digit 2.6 14.0 54 Right Radial Anti Sensory (Thumb) Forearm ? 1.4 1.9 <3.1 40.2 Forearm Thumb 1.4 0.0 Left Ulnar Anti Sensory (5th Digit) Wrist ? 2.7 3.3 <3.7 52.2 >15.0 Wrist 5th Digit 2.7 14.0 52 Right Ulnar Anti Sensory (5th Digit) Wrist ? 2.6 3.2 <3.7 57.2 >15.0 Wrist 5th Digit 2.6 14.0 54 Motor Summary Table ?Stim Site NR Onset (ms) Norm Onset (ms) O-P Amp (mV) Norm O-P Amp iAmp (mV) Amp (1st) (%) Site1 Site2 Delta-0 (ms) Dist (cm) Justin (m/s) Norm Justin (m/s) Left Median Motor (Abd Poll Brev) Wrist ? 3.9 <3.9 5.4 >4.5 6.8 100.0 Elbow Wrist 3.8 19.0 50 >45 Elbow ? 7.7 4.2 5.1 77.8 Right Median Motor (Abd Poll Brev) Wrist ? 3.7 <3.9 8.0 >4.5 9.4 100.0 Elbow Wrist 3.6 19.0 53 >45 Elbow ? 7.3 7.8 9.2 97.5 Left Ulnar Motor (Abd Dig Minimi) Wrist ? 2.8 <3.0 7.1 >5 9.9 100.0 B Elbow Wrist 3.0 17.0 57 >45 B Elbow ? 5.8 7.2 10.1 101.4 A Elbow B Elbow 1.4 10.0 71 >45 A Elbow ? 7.2 6.5 9.1 91.5 Right Ulnar Motor (Abd Dig Minimi) Wrist ? 2.7 <3.0 10.1 >5 12.8 100.0 B Elbow Wrist 3.1 17.5 56 >45 B Elbow ? 5.8 10.1 13.3 100.0 A Elbow B Elbow 1.5 10.0 67 >45 A Elbow ? 7.3 9.7 12.4 96.0 EMG ?Side Muscle Nerve Root Ins Act Fibs Psw Amp Dur Poly Recrt Int Pat Comment Right 1stDorInt Ulnar C8-T1 Nml Nml Nml Nml Nml 0 Nml Complete Right FlexCarRad Median C6-7 Nml Nml Nml Nml Nml 0 Nml Complete Right Biceps Musculocut C5-6 Nml Nml Nml Nml Nml 0 Nml Complete Right Triceps Radial C6-7-8 Nml Nml Nml Nml Nml 0 Nml Complete Right Deltoid Axillary C5-6 Nml Nml Nml Nml Nml 0 Nml Complete Left 1stDorInt Ulnar C8-T1 Nml Nml Nml Nml Nml 0 Nml Complete Left FlexCarRad Median C6-7 Nml Nml Nml Nml Nml 0 Nml Complete Left Biceps Musculocut C5-6 Nml Nml Nml Nml Nml 0 Nml Complete Left Triceps Radial C6-7-8 Nml Nml Nml Nml Nml 0 Nml Complete Left Deltoid Axillary C5-6 Nml Nml Nml Nml Nml 0 Nml Complete Paraspinal EMG ?Side Muscle Nerve Root Ins Act Fibs Psw Comment Right Cervical Upper Rami Nml Nml Nml Right Cervical Mid Rami Nml Nml Nml Right Cervical Lower Rami Nml Nml Nml Left Cervical Upper Rami Nml Nml Nml Left Cervical Mid Rami Nml Nml Nml Left Cervical Lower Rami Nml Nml Nml FINDINGS: All motor and sensory nerves tested showed normal latencies, amplitudes and conduction velocities. Concentric needle EMG was performed in selected muscles of the bilateral upper extremities and cervical paraspinals. Study did not reveal signs of electric abnormalities as shown in the table below. IMPRESSION: 1. This is normal study. 2. There is no electrodiagnostic evidence for median neuropathy, ulnar neuropathy, brachial plexopathy, or cervical radiculopathy. Thank you for your kind referral. Ale Shaikh MD, FREDY Board Certified, [place] Board of Physical Medicine and Rehabilitation (ABPMR) Board Certified, [place] Board of Electrodiagnostic Medicine (ABEM) [facility]
== END 2023-01-30 13:59 | disposition home or self-care (01) ==
LOC: HO.NEURO 13:58
PROVIDERS: Visit Provider Orthopaedic Surgery
DX: R20.0 Anesthesia of skin (principal); R20.2 Paresthesia of skin
CPT/HCPCS: 95886; 95911

== ENCOUNTER 2023-02-19 05:51 | Emergency (ER) | payer OTHER, SELFPAY ==
[2023-02-19 05:56] VITALS: BP 123/70; PULSE 89; RESP 16; TEMP 37.4; O2SAT 95; BMI 32.4
[2023-02-19 07:02] LABS: MANUAL DIFF FLAG NO
--- NOTE | 2023-02-19 07:15 | PC.NURSE ---
alert and oriented, respirations even and unlabored. swabs/urine obtained. awaiting ed provider, call calderon within reach.
--- NOTE | 2023-02-19 07:16 | ED.GENADULT ---
HPI - General Adult General Chief complaint: General Medical Stated complaint: Vomiting/Diarrhea/Headache/Fever Time Seen by Provider: 02/19/23 07:16 Source: patient and RN notes reviewed Mode of arrival: ambulatory Limitations: no limitations History of Present Illness HPI narrative: This is a 47-year-old female, with a past medical history of anxiety, asthma back pain, COVID-19, GERD, and pancreatitis, presenting to the emergency department with complaints of ?not feeling good? since 7:00 p.m. last night. Patient reports that last night she developed to have nausea, epigastric pain and has had vomiting and diarrhea. She also endorses a slight cough, nasal congestion, sore throat. Denies any chest pain, dizziness, shortness of breath bloody or black stool, or bloody vomit. She states that she took her temperature last night and it was 100.5. She took a dose of Tylenol but believes that she threw it back up. Patient reports that she is feeling dehydrated due to the numerous episodes of vomiting and diarrhea. Denies eating any undercooked foods however states that she was at the gym last night and had a protein shake that was made with this [place] water, unsure if this was contaminated due to the recent pipe burst. No other complaints or concerns at this time. MD complaint: Nausea vomiting diarrhea Onset (ago): hour(s) Radiation: non-radiation Severity: moderate Quality: aching Pain Consistency: constant Relieving factors: none Exacerbating factors: none Associated symptoms: fever/chills, loss of appetite and nausea/vomiting Treatments prior to arrival: none Related Data Home Medications Medication Instructions Recorded Confirmed epinephrine 0.3 mg/0.3 mL 0.3 ml IM DIRECTED PRN Allergic 03/20/21 06/05/21 injection, auto-injector Reaction escitalopram oxalate 10 mg tablet 10 mg PO DAILY 08/16/21 diclofenac sodium 1 % topical gel g topical 10/22/21 fluticasone propionate 220 1 puff PO BID 10/22/21 mcg/actuation HFA aerosol inhaler (Flovent HFA) albuterol sulfate 90 mcg/actuation 2 puff PO Q4-6H PRN 01/01/22 aerosol inhaler cetirizine 10 mg tablet 10 mg PO DAILY 04/01/22 fluticasone propionate 50 1 spray intranasal BID 04/01/22 mcg/actuation nasal spray,suspension Previous Rx's Medication Instructions Recorded linaclotide 145 mcg capsule 145 mcg PO DAILY #30 caps 08/16/21 (Linzess) cholecalciferol (vitamin D3) 50 50 mcg PO DAILY #30 caps 09/04/21 mcg (2,000 unit) capsule albuterol sulfate 2.5 mg/3 mL 2.5 mg (3 mL) inhalation QID PRN 09/25/21 (0.083 %) solution for nebulization shortness of breath or wheezing #75 mL esomeprazole magnesium 40 mg 40 mg PO DAILY #90 caps 07/02/22 capsule,delayed release (Nexium) polyethylene glycol 3350 17 17 g PO DAILY #510 grams 07/02/22 gram/dose oral powder (Miralax) aluminum-mag hydroxide-simethicone 5 ml PO 5XD PRN dyspepsia #30 mL 07/29/22 200 mg-200 mg-20 mg/5 mL oral susp (Maalox Advanced) ondansetron 4 mg disintegrating 4 mg PO Q8H PRN nausea and 07/29/22 tablet vomiting #10 tabs methocarbamol 500 mg tablet 500 mg PO BID PRN muscle spasm #60 10/21/22 tabs nabumetone 750 mg tablet 750 mg PO BID PRN pain #60 tabs 10/21/22 gabapentin 300 mg capsule 300 mg PO BEDTIME pain 30 days #30 11/14/22 caps methylprednisolone 4 mg tablets in See Rx Instructions PO PER PKG DIR 11/14/22 a dose pack (Medrol (Daquan)) pain #21 ea lorazepam 0.5 mg tablet 0.5 mg PO ONCE PRN Anxiety #2 tabs 01/06/23 ondansetron 4 mg disintegrating 4 mg PO Q6-8H PRN nausea and 02/19/23 tablet vomiting #20 tabs Allergies Allergy/AdvReac Type Severity Reaction Status Date / Time cinnamon Allergy Mild Anaphylaxis Verified 01/15/23 12:13 kiwi Allergy Anaphylaxis Verified 01/15/23 12:13 pineapple Allergy Anaphylaxis Verified 01/15/23 12:13 strawberry Allergy Anaphylaxis Verified 01/15/23 12:13 peaches Allergy Mild Anaphylaxis Uncoded 01/15/23 12:13 Review of Systems Review of Systems: Yes all other systems are reviewed and are negative Constitutional: Constitutional: Reports as per HPI PMFSH Past Medical History Medical History Anxiety Asthma Back pain COVID-19 vaccine administered GERD (gastroesophageal reflux disease) Lab test negative for COVID-19 virus Lipoma Pancreatitis Surgical History History of carpal tunnel release (~06/22/20) Hx of colonoscopy Hx of esophagogastroduodenoscopy Status post excision of lipoma Family History Family History Maternal Grandmother History of ovarian cancer Mother History of thyroid disease Social History Social History Alcohol intake: never Patient Tobacco Use Status: Never used Tobacco Advance Directives: No Advance Directives Information Provided: Yes Current occupational status: employed 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 Head: Yes normal to inspection, Yes normocephalic and Yes atraumatic Ears: hearing grossly normal bilaterally General nose exam: Normal external nose present Face and sinus: Yes normal facial exam Mouth: Normal oral and palatal mucosa present and moist mucous membranes Throat: Yes posterior oropharynx normal Eyes General: appearance normal, both eyes and all related structures Eyelids: Yes eyelids normal Conjunctivae: conjunctivae normal Sclerae: sclerae normal Pupils: Equal, round and reactive pupils present EOM: EOMs intact bilaterally Neck Neck: Yes normal visual inspection, Yes full ROM and Yes no lymphadenopathy Lymphatic: no lymphadenopathy noted Chest Chest palpation & inspection: normal inspection of the chest Resp Effort & Inspection: normal respiratory effort and able to speak in complete sentences Auscultation: clear to auscultation bilaterally, no crackles, no rales, no rhonchi and no wheezes Cardio Rate: regular rate Rhythm: regular rhythm Heart sounds: S1 normal heart sound present and S2 normal heart sound present GI Other: Abdomen is soft, with mild epigastric tenderness to palpation. Normoactive bowel sounds present in all 4 quadrants. Inspection: Yes normal to inspection Skin General skin exam: no rashes or lesions noted Trauma: no lacerations or abrasions Wounds: no wounds Neuro General: patient oriented x3 and moves all extremities Cranial nerves: Yes Equal, round and reactive pupils present Extrem General: Yes normal to inspection Right upper extremity: normal to inspection Left upper extremity: normal to inspection Right lower extremity: normal to inspection Left lower extremity: normal to inspection Course Reevaluation(s) Reevaluation #1: Patient tested positive for COVID, will medicate with 1 L of IV fluids. Patient is not nauseous at this time. Upon receiving 1 L of IV fluids will p.o. trial prior to departure, will continue to monitor. Time: 07:43 Reevaluation #2: Patient re-evaluated, feeling better after receiving 1 L of IV fluids, vital signs have remained stable. Endorsing some nausea, will medicate with 4 mg of Zofran IV and p.o. challlenge. Time: 09:00 Reevaluation #3: Patient was able to tolerate food and drink by mouth without vomiting or nausea. Patient has been stable and is stable for discharge. Discussed return precautions. Patient understands and agrees with plan. Time: 09:42 Medications Administered Discontinued Medications Generic Name Dose Route Start Last Admin Trade Name Freq PRN Reason Stop Dose Admin Sodium Chloride 1,000 mls @ 999 mls/hr 02/19/23 07:30 02/19/23 08:59 Ns IV 02/19/23 08:30 Infused .Q1H1M ONE Infusion Ondansetron HCl 4 mg 02/19/23 08:58 02/19/23 09:05 Ondansetron Hcl 4 Mg/2 Ml Vial IVPUSH 02/19/23 08:59 4 mg ONCE ONE Administration Medical Decision Making Medical Decision Making [facility] Narrative: 47-year-old female presenting to the emergency department for evaluation of nausea, vomiting, diarrhea, and fevers since last night. On arrival, all vital signs within normal limits. Patient is nontoxic appearing. Lungs are clear to auscultation bilaterally. Tonsils are size with slight hypertrophy, uvula is midline, airway patent, no exudates. Abdomen is soft, with mild tenderness palpation in the epigastrium, normoactive bowel sounds positive all 4 quadrants. No urinary symptoms. Differential diagnoses include gastritis, gastroenteritis, acute pancreatitis given past medical history of this, electrolyte, nutrition, viral syndrome Plan: Labs, COVID, UA, 1 L IV fluids Differential Diagnosis Differential Diagnoses: The differential diagnosis associated with the presentation includes See above Admission/Observation Consideration of admission/observation: Escalation of care including admission/observation considered Patient would have been admitted to the hospital had her work up had any findings where hospital admission was appropriate and her clinical presentation warranted hospital admission. Lab Data MDM Lab Attestation statement: I reviewed the patient's lab results. No leukocytosis, stable H&H, chemistry within normal limits. AST slightly elevated at 33, otherwise nondiagnostic. Lipase within normal limits. Urine with moderate blood, no other signs of infection. Patient tested positive for COVID today. 02/19/23 06:54 02/19/23 06:54 Labs: Lab Results 02/19/23 02/19/23 Range/Units 06:54 07:08 WBC 7.1 (4.8-10.8) X10*3/uL RBC 4.50 (4.20-5.50) X10*6/uL Hgb 12.1 (12.0-16.0) g/dl Hct 37.2 (37.0-47.0) % MCV 82.7 (80.0-98.0) fL MCH 26.9 L (27.0-33.0) pg MCHC 32.5 (31.0-35.0) g/dl RDW 13.3 (11.0-16.0) % Plt Count 227 (160-400) X10*3/uL MPV 10.6 (9.4-12.3) fL Immature Gran % (Auto) 0.3 (0.0-0.4) % Neut % (Auto) 84.6 H (45-73) % Lymph % (Auto) 5.7 L (20-40) % [place] % (Auto) 8.8 (2-11) % Eos % (Auto) 0.3 (0-4) % Baso % (Auto) 0.3 (0-2) % Lymph # (Auto) 0.4 L (1.2-4.9) X10*3/uL [place] # (Auto) 0.6 (0.1-1.2) X10*3/uL Eos # (Auto) 0.0 (0.0-0.4) X10*3/uL Baso # (Auto) 0.0 (0.0-0.2) X10*3/uL Abs Immat Gran (auto) 0.02 (0.00-0.03) X10*3/uL Absolute Neuts (auto) 6.0 (2.0-8.3) x10*3/uL Absolute Nucleated RBC 0.000 (0.0-0.012) X10*3/uL Nucleated RBC % (auto) 0.0 (0.0-0.2) /100WBC Sodium 138 (135-145) mmol/L Potassium 3.7 (3.3-5.1) mmol/L Chloride 106 (96-108) mmol/L Carbon Dioxide 26 (22-29) mmol/L Anion Gap 10 L (12-20) BUN 10 (9-16) mg/dL Creatinine 0.86 (0.5-1.4) mg/dL Estim Creat Clear Calc 84.7 Estimated GFR > 60 Random Glucose 108 (60-115) mg/dL Calcium 9.7 (8.4-10.2) mg/dL Total Bilirubin 0.4 (0.0-1.0) mg/dL Direct Bilirubin 0.1 (0.0-0.5) mg/dL AST 33 H (5-31) U/L ALT 25 (0-31) U/L Alkaline Phosphatase 58 (39-117) U/L Total Protein 7.9 (6.5-8.0) g/dL Albumin 4.5 (3.5-5.0) g/dL Lipase 13 (8-78) U/L Urine Color Yellow Urine Appearance Clear Urine pH 5.5 (5.0-9.0) Ur Specific [place] 1.010 (1.005-1.025) Urine Protein Negative (Neg-Trace) mg/dL Urine Glucose (UA) Negative (Negative) mg/dL Urine Ketones Negative (Negative) mg/dL Urine Blood Moderate (2+) H (Negative) Urine Nitrite Negative (Negative) Ur Leukocyte Esterase Negative (Negative) Urine RBC 0-2 (0-2) /HPF Urine WBC 0-5 (0-5) /HPF Ur Squamous Epith Cells 0-2 (0-2) /HPF Urine Bacteria None Seen (None Seen) Hyaline Casts 0-2 (0-2) /LPF COVID-19 (ERICKSON) Positive A (Negative) COVID-19 Clin Com See Note Influenza Type A (SURENDRA) Negative (Negative) Influenza Type B (SURENDRA) Negative (Negative) Influenza A & B Note See Note Radiology Impression Discussion of test interpretation with radiology: I have reviewed the radiologist's reading. External Record Review External record reviewed: Inpatient record, Office record, Outpatient record, Prior outpatient labs, Prior outpatient radiology, Primary care record and Outside ED record Discharge Plan Discharge Clinical Impression: COVID-19 Patient Disposition: Home, Self-Care Additional Instructions: You tested positive for COVID-19 today. This is a self-limiting illness, meaning you do not need antibiotics to treat this illness. Take ibuprofen and Tylenol as directed as needed for pain and symptoms. Take prescribed Zofran as needed for nausea and vomiting. If any new or worsening symptoms occur including but not limited to chest pain or shortness of breath, please return for re-evaluation. Your most contagious within the first 5 days of this illness, please self quarantine and wear mask around others. Avoid individuals that are immunocompromised, young and elderly. You may refer to the CDC website for additional information. Prescriptions: New ondansetron 4 mg tablet,disintegrating 4 mg PO Q6-8H PRN (Reason: nausea and vomiting) Qty: 20 0RF No Action cholecalciferol (vitamin D3) 50 mcg (2,000 unit) capsule 50 mcg PO DAILY Qty: 30 3RF lorazepam 0.5 mg tablet 0.5 mg PO ONCE PRN (Reason: Anxiety) Qty: 2 0RF Rx Instructions: take one tab 1 hour before MRI. May take second tab on arrival to MRI rescheduled 01/07/23 ondansetron 4 mg tablet,disintegrating 4 mg PO Q8H PRN (Reason: nausea and vomiting) Qty: 10 0RF alum-mag hydroxide-simeth [Maalox Advanced] 200-200-20 mg/5 mL suspension 5 ml PO 5XD PRN (Reason: dyspepsia) Qty: 30 0RF Rx Instructions: administer between meals and at bedtime albuterol sulfate 2.5 mg /3 mL (0.083 %) solution for nebulization 2.5 mg inhalation QID PRN (Reason: shortness of breath or wheezing) Qty: 75 0RF epinephrine 0.3 mg/0.3 mL auto-injector 0.3 ml IM DIRECTED PRN (Reason: Allergic Reaction) albuterol sulfate 90 mcg/actuation HFA aerosol inhaler 2 puff PO Q4-6H PRN escitalopram oxalate 10 mg tablet 10 mg PO DAILY Linzess 145 mcg capsule 145 mcg PO DAILY Qty: 30 2RF Flovent HFA 220 mcg/actuation HFA aerosol inhaler 1 puff PO BID diclofenac sodium 1 % gel topical fluticasone propionate 50 mcg/actuation spray,suspension 1 spray intranasal BID cetirizine 10 mg tablet 10 mg PO DAILY esomeprazole magnesium [Nexium] 40 mg capsule,delayed release(DR/EC) 40 mg PO DAILY Qty: 90 3RF polyethylene glycol 3350 [Miralax] 17 gram/dose powder 17 g PO DAILY Qty: 510 2RF nabumetone 750 mg tablet 750 mg PO BID PRN (Reason: pain) Qty: 60 0RF Rx Instructions: Take it with food and full glass of water. Avoid other NSAIDs. methocarbamol 500 mg tablet 500 mg PO BID PRN (Reason: muscle spasm) Qty: 60 0RF gabapentin 300 mg capsule 300 mg PO BEDTIME 30 Days Qty: 30 0RF methylprednisolone [Medrol (Daquan)] 4 mg tablets,dose pack See Rx Instructions PO PER PKG DIR Qty: 21 0RF Rx Instructions: PO PER PKG DIR Stand Alone Forms: Work/School Release
[2023-02-19 07:20] LABS: Alanine Aminotransferase 25 U/L (0-31); Albumin Level 4.5 g/dL (3.5-5.0); Alkaline Phosphatase 58 U/L (39-117); Anion Gap 10 (12-20); Aspartate Amino Transferase 33 U/L (5-31); Bilirubin Direct 0.1 mg/dL (0.0-0.5); Bilirubin Total 0.4 mg/dL (0.0-1.0); Blood Urea Nitrogen 10 mg/dL (9-16); Calcium 9.7 mg/dL (8.4-10.2); Carbon Dioxide 26 mmol/L (22-29); Chloride 106 mmol/L (96-108); Creatinine Clr Calc Pharmacy 84.7; Estimated Glomerular Filt Rate > 60; Glucose Random 108 mg/dL (60-115); Lipase 13 U/L (8-78); Potassium 3.7 mmol/L (3.3-5.1); Sodium 138 mmol/L (135-145); Total Protein 7.9 g/dL (6.5-8.0)
[2023-02-19 07:22] LABS: Appearance Urine Clear; Color Urine Yellow; Glucose Urine UA Negative (Negative); Leukocyte Esterase Urine Negative (Negative); Nitrite Urine Negative (Negative); PH 5.5 (5.0-9.0); UMIC TRIGGER UACC YES; Urine Blood Moderate (2+) (Negative); Urine Ketones Negative (Negative); Urine Protein Negative (Neg-Trace)
[2023-02-19 07:24] LABS: Basophils Percent Auto 0.3 % (0-2); Eosinophils Percent Auto 0.3 % (0-4); Hematocrit 37.2 % (37.0-47.0); Hemoglobin 12.1 g/dl (12.0-16.0); Imm Gran Abs Auto 0.02 X10*3/uL (0.00-0.03); Imm Gran Pct Auto 0.3 % (0.0-0.4); Lymphocytes Absolute Auto 0.4 X10*3/uL (1.2-4.9); Lymphocytes Percent Auto 5.7 % (20-40); Mean Corpuscular HGB Conc 32.5 g/dl (31.0-35.0); Mean Corpuscular Hemoglobin 26.9 pg (27.0-33.0); Mean Corpuscular Volume 82.7 fL (80.0-98.0); Mean Platelet Volume 10.6 fL (9.4-12.3); Monocytes Absolute Auto 0.6 X10*3/uL (0.1-1.2); Monocytes Percent Auto 8.8 % (2-11); Neutrophils Percent Auto 84.6 % (45-73); Platelet Count 227 X10*3/uL (160-400); Red Cell Distribution Width 13.3 % (11.0-16.0); White Blood Count 7.1 X10*3/uL (4.8-10.8)
[2023-02-19 07:25] LABS: COVID-19 Test Positive (Negative); IDNOW Serial# 6674DD1D
[2023-02-19 07:29] LABS: Bacteria Urine None Seen (None Seen); Hyaline Casts Urine 0-2 /LPF (0-2); RBC Urine 0-2 /HPF (0-2); Squamous Epithelial Cell Urine 0-2 /HPF (0-2); WBC Urine 0-5 /HPF (0-5)
[2023-02-19 07:34] LABS: IDNOW Serial# 55D5AD1C; Influenza A Negative (Negative); Influenza B2 Negative (Negative)
[2023-02-19] MEDS: 0.9 % Sodium Chloride 1,000 ML 999 ML IV (07:40)
--- NOTE | 2023-02-19 07:50 | PC.NURSE ---
iv established, fluids infusing at this time. covid precautions set up outside room. no signs/symptoms of distress.
[2023-02-19 09:03] VITALS: BP 130/71; PULSE 86; RESP 16; TEMP 36.9; O2SAT 99
[2023-02-19] MEDS: ondansetron HCL 4 MG/2 ML VIAL IVPUSH (09:05)
--- NOTE | 2023-02-19 09:08 | PC.NURSE ---
fluids finished infusing, medicated per the MAR. will attempt PO challenge after zofran
--- NOTE | 2023-02-19 09:27 | PC.NURSE ---
attempting to PO challenge pt with eric genoveva and crackers
== END 2023-02-19 09:48 | disposition home or self-care (01) ==
PROVIDERS: Emergency Provider Emergency Medicine Emergency Medical Services; PCP Internal Medicine
DX: U07.1 COVID-19 (principal); R11.2 Nausea with vomiting, unspecified; R51.9 Headache, unspecified; R50.9 Fever, unspecified; R05.9 Cough, unspecified; Z79.899 Other long term (current) drug therapy
CPT/HCPCS: 36415; 80048; 80076; 81001; 83690; 85025; 87502; 87635; 96361; 96374; 99284; J2405

== ENCOUNTER 2023-03-13 14:00 | Outpatient (RCR) | payer OTHER, SELFPAY ==
--- NOTE | 2023-02-04 16:06 | MHC.OT.EP ---
[address] [phone] Occupational Therapy Plan of Care Patient Name: Joan Rivero Date of Evaluation: 02/04/23 Diagnosis: Right ECU tendinitis Pain Location: Pain in right forearm Current: 5/10 Best: 5/10 Worst: 10/10 Pain Score: Pain Scale Used: Aggravating Factors: Pushing, lifting, picking up grandson, mouse use Alleviating Factors: Heat, medicated cream, ibuprofen Assessment: Pt is a 47 y/o right hand dominant female referred to OT w/ right ECU tendinitis. Pt reports ulnar side wrist pain started in October when she was doing some gardening work outside. EMG results were negative for peripheral neuropathy or cervical radiculopathy. She did have a cortisone injection on 01/15 without relief. Pain radiates from ulnar styloid to lateral wrist extensors. We discussed night time splinting due to occasional c/o hand numbness. Pt. reports she has wrist cock-up splints from previous CTR surgery which she will trial. Additionally, pt. presents with stiffness in right wrist, pain with gripping, and decreased gross grasp strength. A 52% limitation is reported per the quick DASH assessment. Joan would benefit from skilled OT to address noted barriers and assist in PLOF. Frequency and Duration: The patient will be seen 2/wk for 4 weeks Short Term Goals: Pain free with BADLs/IADL's IND with activity modification Wrist flex/ext >55 degrees Gross grasp >45# IND with progression of HEP Paster Hat Lining Goals: Same as above Treatment Plan: Therapeutic Exercise Therapeutic Activity Home Exercise Program Splinting Patient Education Ultrasound Iontophoresis Paraffin Fluidotherapy MHP Joint Mobilization Soft Tissue Mobilization Kinesiotaping Electronically Signed By: Caren López, MS OTR/L Please Sign and return to therapist. Thank you once again for your referral.
== END 2023-03-13 14:48 | disposition home or self-care (01) ==
LOC: HO.OT 14:00
PROVIDERS: PCP Internal Medicine; Visit Provider Orthopaedic Surgery
DX: M77.8 Other enthesopathies, not elsewhere classified (principal)
CPT/HCPCS: 97033; 97035; 97110; 97140; 97165

== ENCOUNTER → 2023-03-31 15:51 | Outpatient (REF) | payer OTHER, SELFPAY | LOC: HO.SL 15:51 | PROVIDERS: PCP Internal Medicine; Visit Provider Internal Medicine | DX: R06.81 Apnea, not elsewhere classified (principal); R06.83 Snoring | CPT/HCPCS: 95806 ==

== ENCOUNTER → 2023-03-31 19:00 | Outpatient (BNV) | payer OTHER, SELFPAY | PROVIDERS: PCP Internal Medicine; Visit Provider Internal Medicine | DX: R06.83 Snoring (principal) | CPT/HCPCS: 95806 ==

== ENCOUNTER 2023-04-08 15:08 | Outpatient (REF) | payer OTHER, SELFPAY ==
--- NOTE | ~2023-04-08 | MM_ITS ---
EXAMINATION: MM SCREENING DIGITAL BREAST TOMOSYNTHESIS, BILATERAL CLINICAL INFORMATION: Screening. Asymptomatic. COMPARISON: Mammography: This study is compared with prior exams dating back to 2017. TECHNIQUE: Digital breast tomosynthesis is performed in both the craniocaudal and mediolateral oblique views along with computer-aided detection (CAD). Synthesized 2D images are generated from the tomosynthesis. FINDINGS: There are scattered areas of fibroglandular density (ACR BI-RADS breast composition Category b). There is a focal asymmetry in the upper outer quadrant of the left breast at middle depth. Further mammographic evaluation of this finding is advised. In the right breast, there are no significant masses, abnormal calcifications, or other abnormalities. MM/MM tomosynthesis screening BI IMPRESSION: Focal asymmetry of the upper outer quadrant of the left breast warrants additional mammographic imaging. Targeted sonography significant discretion of the diagnostic radiologist. No mammographic signs of malignancy right breast. ASSESSMENT: BI-RADS BI-RADS 0 - Incomplete: Needs additional Imaging. RECOMMENDATION: 1. Additional views of the left breast. 2. Targeted ultrasound if warranted after review of the additional views. 3. Radiology department staff will contact the patient for additional imaging. Additional Imaging required This examination should not preclude the clinical evaluation of a suspicious palpable abnormality. This patient's information was entered into a reminder system with a target due date for their next mammogram.
== END 2023-04-08 15:09 | disposition home or self-care (01) ==
LOC: HO.MAMMO 15:08
PROVIDERS: PCP Internal Medicine; Visit Provider Internal Medicine
DX: Z12.31 Encounter for screening mammogram for malignant neoplasm of breast (principal)
CPT/HCPCS: 77063; 77067

== ENCOUNTER → 2023-04-08 15:15 | Outpatient (BNV) | payer OTHER, SELFPAY | PROVIDERS: PCP Internal Medicine; Visit Provider Radiology Diagnostic Radiology | DX: Z12.31 Encounter for screening mammogram for malignant neoplasm of breast (principal) | CPT/HCPCS: 77063; 77067 ==

== ENCOUNTER 2023-05-14 14:26 | Outpatient (REF) | payer OTHER, SELFPAY ==
--- NOTE | ~2023-05-14 | MM_ITS ---
EXAMINATION: MM DIAGNOSTIC DIGITAL BREAST TOMOSYNTHESIS, LEFT US BREAST LIMITED, LEFT MAMMOGRAPHY: CLINICAL INFORMATION: Evaluate focal asymmetry upper outer quadrant left breast, middle depth. COMPARISON: Mammography: Screening mammography 04/08/2023. TECHNIQUE: Digital breast tomosynthesis is performed in the following views: 3-D left CC and 3-D left MLO spot compression views. FINDINGS: There are scattered areas of fibroglandular density (ACR BI-RADS breast composition Category b). Diagnostic views demonstrate effacement of the focal asymmetry in the upper outer quadrant of the left breast, middle depth, consistent with overlapping tissue artifact/superimposition artifact. No persistent mass, distortion, or evidence of abnormal calcifications. ULTRASOUND: CLINICAL INFORMATION: Evaluate focal asymmetry upper outer quadrant left breast, middle depth. COMPARISON: None TECHNIQUE: Targeted sonographic evaluation was performed using a high frequency linear transducer. Left breast was scanned from 11:00 to 3:00 axis. Selected archived documentation. FINDINGS: LEFT BREAST: There is a mixture of fatty and fibroglandular tissue. No suspicious mass is seen. There is no pathologic acoustic shadowing. There is no cystic abnormality. There is no ultrasonographic correlate to the focal asymmetry in the left breast upper outer quadrant. MM/MM tomosynthesis added views L IMPRESSION: There are no persistent findings suspicious for malignancy in the left breast. Recommend the patient return to routine screening mammography. OVERALL ASSESSMENT: Mammography: BI-RADS 1 - Negative Ultrasound: BI-RADS 1 - Negative RECOMMENDATION: 1 year F/U Results were provided to the patient at time of visit by the technologist. This patient's information was entered into a reminder system with a target due date for their next mammogram.
== END 2023-05-14 14:27 | disposition home or self-care (01) ==
LOC: HO.MAMMO 14:26
PROVIDERS: PCP Internal Medicine; Visit Provider Internal Medicine
DX: N64.89 Other specified disorders of breast (principal)
CPT/HCPCS: 76642; 77061; 77065

== ENCOUNTER → 2023-05-14 15:00 | Outpatient (BNV) | payer OTHER, SELFPAY | PROVIDERS: PCP Internal Medicine; Visit Provider Radiology Diagnostic Radiology | DX: R92.312 Mammographic fatty tissue density, left breast (principal); R92.322 Mammographic fibroglandular density, left breast | CPT/HCPCS: 76642; 77061; 77065 ==

== ENCOUNTER 2023-06-11 10:37 | Outpatient (REF) | payer OTHER, SELFPAY | END 2023-06-11 10:38 | disposition home or self-care (01) | LOC: HO.HHCX 10:37 | PROVIDERS: Visit Provider Student in an Organized Health Care Education/Training Program | DX: M25.511 Pain in right shoulder (principal) | CPT/HCPCS: 73030 ==

== ENCOUNTER 2023-07-04 12:58 | Outpatient (AMB) | payer OTHER, SELFPAY ==
--- NOTE | 2023-07-04 12:59 | MHC.OFFVIS ---
Intake Vital Signs 07/04/23 13:00 Height 5 ft 4 in Weight 188 lb BMI 32.3 Handedness Right Intake Visit Reasons: New Prob-right shoulder pain Intake Note: Joan is a 47 year old right hand dominant female who presents today for a evolution of her right shoulder pain. Patient reports ongoing pain for a couple of weeks ago. She states her pain today is a 7/10. Hx of of taking naproxen with mild relief. Patient thinks her pain is coming from lifting weights at the gym. Pain is more focused on the anterior aspect of the shoulder. Allergies cinnamon Allergy (Mild, Verified 07/04/23 13:07) Anaphylaxis kiwi Allergy (Verified 07/04/23 13:07) Anaphylaxis pineapple Allergy (Verified 07/04/23 13:07) Anaphylaxis strawberry Allergy (Verified 07/04/23 13:07) Anaphylaxis peaches Allergy (Mild, Uncoded 01/15/23 12:13) Anaphylaxis HPI New Prob-right shoulder pain HPI Details 47-year-old female who presents in the office today for an evaluation of right shoulder pain. The patient was seen on 06/06/2023 for an evaluation of right shoulder pain by Dr. Shoshana Beltran. Per the note: The patient report 3 weeks of shoulder pain she felt was associated with exercises at the gym. She reported erythema and edema. She was referred to physical therapy and orthopedics. While in the office today the patient reports ongoing pain for a few weeks. She claims her pain is a 7/10 while in the office today. She reports that she thinks her pain is from lifting weight at the gym. She states the pain is on the anterior aspect of the right shoulder. She confirms a history of Naproxen 500 mg PO BID use with mild relief. 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 No ecchymosis, erythema, or edeam. Forward flexion and abduction to 45 degrees. External rotation to 0. Unable to assess external rotation. Pain with cross-body reach. Unable to adequetly assess empty can or drop arm due to ROM restictions. Office Procedures Joint Injection/Drain Joint Injection/Drain Primary Site: right shoulder Prep: site was prepped using aseptic technique, ethochloride spray was applied and injection warnings given Injected: 80 mg of, DepoMedrol, with 8 mL of (2% plain lido ) and in the subcromial space Approach Used: posterolateral Procedure: The patient tolerated the procedure well, but had some pain with the injection and there was some relief with the local anesthesia Coding 58531 - Large joint Procedure code (CPT) selection complete Assessment & Plan Assessment & Plan (1) Adhesive capsulitis of right shoulder: Code(s): M75.01 - Adhesive capsulitis of right shoulder Plan Ms. Rivero is a 47-year-old female who presents in the office today for an evaluation of right shoulder pain. The patient was seen on 06/06/2023 for an evaluation of right shoulder pain by Dr. Shoshana Beltran. Per the note: The patient report 3 weeks of shoulder pain she felt was associated with exercises at the gym. She reported erythema and edema. She was referred to physical therapy and orthopedics. While in the office today the patient reports ongoing pain for a few weeks. She claims her pain is a 7/10 while in the office today. She reports that she thinks her pain is from lifting weight at the gym. She states the pain is on the anterior aspect of the right shoulder. She confirms a history of Naproxen 500 mg PO BID use with mild relief. The patient was offered a cortisone injection in the right shoulder with 80 mg of DepoMedrol. The patient was explained the risk, benefits, and alternatives to receiving this injection. After receiving consent for the injection, the patient had the procedure done while in office today. The patient tolerated the procedure well with no complications. She will continue to attend physical therapy. Follow up will be in 6 weeks, or sooner if needed. X-rays of the right shoulder, obtained on 06/11/2023, revealed: The bones and soft tissues are normal. No fracture. Glenohumeral and acromioclavicular alignment is anatomic with normal joint space. No abnormal soft tissue calcifications. Patient Instructions: Scribed for Graciela Lauren PA-C by Samantha Diaz medical supervisor, on 07/04/2023 at 1:03 pm, EST. Coding Level of Care Code Est Pt Level 3 (91913) Diagnoses Adhesive capsulitis of right shoulder M75.01 CPT Codes Coding - 93014 Large joint: 44788 - Large joint ([id number])
[2023-07-04 13:00] VITALS: BMI 32.3
== END 2023-07-04 13:51 | disposition home or self-care (01) ==
PROVIDERS: PCP Internal Medicine; Visit Provider Physician Assistant
DX: M75.01 Adhesive capsulitis of right shoulder (principal)
CPT/HCPCS: 20610; 99213

== ENCOUNTER → 2023-07-04 12:58 | Outpatient (BNVA) | payer OTHER, SELFPAY | PROVIDERS: PCP Internal Medicine; Visit Provider Physician Assistant | DX: M75.01 Adhesive capsulitis of right shoulder (principal) | CPT/HCPCS: 20610; J1040 ==

== ENCOUNTER 2023-08-29 07:00 | Outpatient (RCR) | payer OTHER, SELFPAY | END 2023-10-28 09:19 | disposition home or self-care (01) | LOC: HO.PT 07:00 | PROVIDERS: PCP Internal Medicine; Visit Provider Student in an Organized Health Care Education/Training Program | DX: M25.511 Pain in right shoulder (principal) | CPT/HCPCS: 97033; 97035; 97110; 97140; 97162; 97530 ==

== ENCOUNTER 2023-09-25 11:29 | Outpatient (AMB) | payer OTHER, SELFPAY ==
--- NOTE | 2023-09-25 11:36 | A.OFFVIS_ITS ---
Intake Visit Reasons: ov- Rt shoulder follow up Intake Note: Joan is a 47 year old right hand dominant female who presents today for a follow up for her right shoulder pain, last inj 07/04/23. Patient reports her last injections gave her about no of relief. She expresses that when she is going to PT she feels that her pain is getting worse. Allergies cinnamon Allergy (Mild, Verified 09/25/23 11:37) Anaphylaxis kiwi Allergy (Verified 09/25/23 11:37) Anaphylaxis pineapple Allergy (Verified 09/25/23 11:37) Anaphylaxis strawberry Allergy (Verified 09/25/23 11:37) Anaphylaxis peaches Allergy (Mild, Uncoded 01/15/23 12:13) Anaphylaxis HPI HPI ov- Rt shoulder follow up: Details: 47-year-old female who presents in the office today for a follow up of right shoulder adhesive capsulitis. I last saw the patient in the office on 07/04/2023 when she was given a cortisone injection in the right shoulder. She was encouraged to continue to attend PT. She states the last injection gave her no relief. She states PT was helping her but about a week before discharge the shoulder became inflamed. She attended for 3 additional weeks with no help. She states they applied medication, but this did not help. She states her pain radiates to her chest and back. 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 Review of Systems Const All systems reviewed & are unremarkable except as noted in HPI and below Physical Exam Const General: cooperative, healthy appearing and no acute distress Orientation/consciousness: patient oriented x3 Resp Effort & Inspection: normal respiratory effort and able to speak in complete sentences Cardio Rate: regular rate Peripheral pulses: Peripheral pulses 2+ throughout GI Palpation (GI): Soft to palpation Skin General skin exam: no rashes or lesions noted Lesions: no lesions Rashes: no rashes Neuro General: patient oriented x3 Extrem Other: Right shoulder: Normal to inspection. No ecchymosis, erythema, or edeam. Forward flexion and abduction to 45 degrees. External rotation 30 degrees with pain. Pain with cross-body reach. Pain with empty can. NVI. Assessment & Plan Assessment & Plan (1) Adhesive capsulitis of right shoulder: Code(s): M75.01 - Adhesive capsulitis of right shoulder Category: Medical Plan Ms. Rivero is a 47-year-old female who presents in the office today for a follow up of right shoulder adhesive capsulitis. I last saw the patient in the office on 07/04/2023 when she was given a cortisone injection in the right shoulder. She was encouraged to continue to attend PT. She states the last injection gave her no relief. She states PT was helping her but about a week before discharge the shoulder became inflamed. She attended for 3 additional weeks with no help. She states they applied medication, but this did not help. She states her pain radiates to her chest and back. Patient will be referred for an open MRI to be done at [facility]. Follow up will be after the MRI is obtained, or sooner if needed. Orders: Orders MR shoulder RT wo con Today M75.01 - Adhesive capsulitis of right shoulder Patient Instructions: Scribed by Samantha Diaz center medical director, for Graciela Lauren PA-C on 09/25/2023 at 11:45 am, EST.
== END 2023-09-25 11:57 | disposition home or self-care (01) ==
PROVIDERS: PCP Internal Medicine; Visit Provider Physician Assistant
DX: M75.01 Adhesive capsulitis of right shoulder (principal)
CPT/HCPCS: 99213

== ENCOUNTER → 2023-09-25 11:29 | Outpatient (BNVA) | payer OTHER, SELFPAY | PROVIDERS: PCP Internal Medicine; Visit Provider Physician Assistant ==

== ENCOUNTER 2024-01-05 14:23 | Outpatient (REF) | payer OTHER, SELFPAY ==
--- NOTE | ~2024-01-05 | XR_ITS ---
EXAMINATION: XR ANKLE, LEFT CLINICAL INFORMATION: LEFT LATERAL ANKLE PAIN AND SWELLING DECREASED R.O.M. SINCE TWISTING ANKLE YESTERDAY COMPARISON: Left ankle September 12, 2021. TECHNIQUE: AP, lateral, and mortise views of the left ankle. FINDINGS: No acute fracture or dislocation. Chronic linear calcification with corticated margins inferior to the tip the lateral malleolus at the lateral ankle. Prominent lateral process of the talus. There is a small plantar calcaneal spur. No change since prior study September 12, 2021. XR/XR ankle LT min 3V IMPRESSION: Normal left ankle.
== END 2024-01-05 14:24 | disposition home or self-care (01) ==
LOC: HO.HHCX 14:23
PROVIDERS: Visit Provider Internal Medicine Geriatric Medicine
DX: M25.572 Pain in left ankle and joints of left foot (principal)
CPT/HCPCS: 73610

== ENCOUNTER 2024-01-20 16:39 | Outpatient (AMB) | payer OTHER, SELFPAY ==
--- NOTE | 2024-01-20 16:41 | A.OFFVIS_ITS ---
Vital Signs 01/20/24 16:42 Height 5 ft 4 in Weight 185 lb 10.067 oz BMI 31.9 BP 116/68 Blood Pressure Location Rt brachial Position Sitting Pulse 70 Pulse Source Pulse Oximeter Pulse Oximetry (%) 98 Oxygen Delivery Method Room Air Intake Visit Reasons: Follow up Gerd Intake Note: Joan presents in office today for a scheduled FUV. CC; Pt reports that they are still experiencing breakthrough sx. Pt reports that they are having these episodes approximately 2-3 days / week. Pt does report some intermittent difficulties with constipation and diarrhea. However, this is not as pressing of a concerns as the GERD. Pt is still taking the linzess PRN, which they find is helpful. However, they are finding that it is sometimes too effective. Pt is wondering if there is possibly a lower dose that would be available. Bed Rubber Required: No Allergies cinnamon Allergy (Mild, Verified 01/20/24 16:42) Anaphylaxis kiwi Allergy (Verified 01/20/24 16:42) Anaphylaxis pineapple Allergy (Verified 01/20/24 16:42) Anaphylaxis strawberry Allergy (Verified 01/20/24 16:42) Anaphylaxis peaches Allergy (Mild, Uncoded 01/15/23 12:13) Anaphylaxis HPI HPI Follow up Gerd: Details: LAST VISIT GERD (gastroesophageal reflux disease) Continue current treatment with Nexium every morning. Discussed with patient the possibility of changing Nexium to every other day and eventually weaning her off of it. We might need to substitute famotidine, however I would like her to go for upper endoscopy 1st. Discussed with patient the importance of avoiding dietary triggers now and when she is off PPI. Staying upright for minimum 3 hours after meals discussed with patient. IBS (irritable bowel syndrome) Postprandial abdominal bloating. We ruled out pancreatic insufficiency. Patient had normal gastric emptying study. Occasional loose stools, however patient does feel like she does not empty her bowels completely, feeling full and bloated. The patient is taking Senokot 1 tablet in the evening. Patient can continue taking Senokot and I will start her on MiraLax. I will see her in 3 months, sooner on as needed basis. Patient is agreeable to this plan and verbalizes understanding of instructions. She was given the opportunity to ask questions and all questions answered. ? Thank you for allowing me to participate in her care Plan Medications New polyethylene glycol 3350 (Miralax) 17 grams PO DAILY 510 grams 2RF Changed From esomeprazole magnesium (Nexium) 40 mg PO BID 180 caps 3RF K21.9 To esomeprazole magnesium (Nexium) 40 mg PO DAILY 90 caps 3RF K21.9 Discontinued sucralfate Discontinued Reason: Patient no longer taking 1 g PO BEDTIME 30 tabs 4RF R19.7 OKAY TODAY'S VISIT Patient is here today for follow-up visit, however patient has not been seen in the office since June of 2022. Patient has been feeling well for a while, ho wever lately she continues to experience symptoms of epigastric pain postprandially. States that Nexium no longer is effective. Patient also reports that she is using Linzess only when she needs it as when she takes it she will have diarrhea. Currently patient is taking 145 mcg. Patient denies any nausea or vomiting. Patient denies any melena, hematochezia. We did gastric emptying study in the past and the was normal. Patient reports that she is trying to follow low FODMAP diet, however again it is hard due to a busy schedule. Patient denies dyspepsia, dysphagia or odynophagia. 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 Review of Systems Const Denies weight gain and Denies weight loss ENT Reports no additional complaints, Denies dysphagia and Denies odynophagia Card Reports no additional complaints Resp Reports no additional complaints GI Reports abdominal pain (Epigastric), Denies belching, Denies melena, Denies bloating, Reports constipation, Denies dysphagia, Denies excessive flatus, Denies dyspepsia, Reports heartburn, Denies diarrhea, Reports loose stools, Denies nausea, Denies odynophagia and Denies vomiting Reports no additional complaints Musc Reports no additional complaints Neuro Reports no additional complaints Psych Reports no additional complaints Endo Reports no additional complaints Physical Exam Vital Signs: Last Vital Signs Pulse 70 01/20/24 16:42 BP 116/68 01/20/24 16:42 Pulse Ox 98 01/20/24 16:42 Oxygen Delivery Method Room Air 01/20/24 16:42 BMI result Body Mass Index 31.9 Const General: healthy appearing, no acute distress and well developed Nutritional Appearance: well nourished Orientation/consciousness: patient oriented x3 Resp Effort & Inspection: normal respiratory effort, able to speak in complete sentences, no tracheal deviation and symmetric chest movement Auscultation: clear to auscultation bilaterally Cardio Rate: regular rate GI Inspection: Yes normal to inspection, No distended and Yes obesity Palpation (GI): Soft to palpation, not firm, nontender and No hepatosplenomegaly present Auscultation: normal bowel sounds General: Yes no CVA tenderness Back/Spine/Pelvis Back: no CVA tenderness Skin General skin exam: elasticity normal, turgor normal and dry skin Neuro General: patient oriented x3 Psych Appearance: grossly normal Mental Status: mental status grossly normal Assessment & Plan Assessment & Plan (1) GERD (gastroesophageal reflux disease): Code(s): K21.9 - Gastro-esophageal reflux disease without esophagitis Qualifiers: Esophagitis presence: esophagitis presence not specified Qualified Code(s): K21.9 - Gastro-esophageal reflux disease without esophagitis (2) IBS (irritable bowel syndrome): Code(s): K58.9 - Irritable bowel syndrome without diarrhea Qualifiers: Irritable bowel syndrome type: with both diarrhea and constipation Qualified Code(s): K58.2 - Mixed irritable bowel syndrome (3) Postprandial epigastric pain: Code(s): R10.13 - Epigastric pain (4) Constipation: Code(s): K59.00 - Constipation, unspecified Qualifiers: Constipation type: slow transit constipation Qualified Code(s): K59.01 - Slow transit constipation Plan Continue low FODMAP diet. Will put Linzess on hold and patient will try to take Dulcolax daily. Increase fiber intake daily as well increase fluid intake and activity to promote better bowel motility. Will change Nexium to lansoprazole. Avoid dietary triggers and late night snacking. Eating small meals and more often. Staying upright for minimum 3 hours after meals discussed with patient as well. Patient will take famotidine at bedtime. Patient will follow-up in the office in 4 months, sooner on as needed basis. She is agreeable to this plan and verbalizes understanding of instructions. She was given the op portunity to ask questions and all questions answered. Thank you for allowing me to participate in her care Medications: New bisacodyl (Dulcolax (bisacodyl)) 10 mg (2 x 5 mg) PO BEDTIME 60 tabs 4RF famotidine 40 mg PO BEDTIME 90 tabs 3RF K21.9 - Gastro-esophageal reflux disease without esophagitis lansoprazole 30 mg PO DAILY 30 caps 3RF K21.9 - Gastro-esophageal reflux disease without esophagitis Discontinued esomeprazole magnesium Discontinued Reason: Doctor's Order 40 mg PO DAILY 90 caps 3RF K21.9 - Gastro-esophageal reflux disease without esophagitis On Hold linaclotide (Linzess) Hold Comment: Doctor's Order 145 mcg PO DAILY 30 caps 2RF Coding Level of Care Code Est Pt Level 4 (56759) Diagnoses Gastroesophageal reflux disease, unspecified whether esophagitis present K21.9 Esophagitis presence: esophagitis presence not specified Irritable bowel syndrome with both constipation and diarrhea K58.2 Irritable bowel syndrome type: with both diarrhea and constipation Postprandial epigastric pain R10.13 Slow transit constipation K59.01 Constipation type: slow transit constipation Time Spent (min) 35 Comment 20 minutes spent with patient and additional 15 minutes spent reviewing her records
[2024-01-20 16:42] VITALS: BP 116/68; PULSE 70; O2SAT 98; BMI 31.9
== END 2024-01-20 17:17 | disposition home or self-care (01) ==
PROVIDERS: PCP Internal Medicine; Visit Provider Nurse Practitioner Family
DX: K21.9 Gastro-esophageal reflux disease without esophagitis (principal); K58.2 Mixed irritable bowel syndrome; R10.13 Epigastric pain; K59.01 Slow transit constipation
CPT/HCPCS: 99214

== ENCOUNTER → 2024-01-20 16:39 | Outpatient (BNVA) | payer OTHER, SELFPAY | PROVIDERS: PCP Internal Medicine; Visit Provider Nurse Practitioner Family ==

== ENCOUNTER 2024-04-07 08:32 | Outpatient (AMB) | payer OTHER, SELFPAY ==
--- NOTE | 2024-04-07 08:33 | A.OFFVIS_ITS ---
Vital Signs 04/07/24 08:38 Height 5 ft 4 in Weight 185 lb BMI 31.8 Intake Visit Reasons: OV-Right thumb pain/limited ROM Intake Note: Joan is a 48 yo right hand dominant female who presents today for evaluation of right thumb pain and limited ROM. Patient reports difficulty writing, opening and closing lids, difficulty dressing or bending her thumb. Denies numbness but reports occasional episodes of tingling. Patient s/p right CTR 06/22/[address] Thorpe. Patient would like to discuss steroid injection today. Allergies cinnamon Allergy (Mild, Verified 04/07/24 08:34) Anaphylaxis kiwi Allergy (Verified 04/07/24 08:34) Anaphylaxis pineapple Allergy (Verified 04/07/24 08:34) Anaphylaxis strawberry Allergy (Verified 04/07/24 08:34) Anaphylaxis peaches Allergy (Mild, Uncoded 04/07/24 08:34) Anaphylaxis HPI HPI OV-Right thumb pain/limited ROM: Details: Joan is a 48 year old right hand dominant woman who presents with complaints of right thumb IP joint pain. She complains of pain in the IP joint of her thumb, worse with pinching or gripping activities. This has been present for months and she has just been tolerating it. She says activities such as opening jars or getting dressed sometimes is painful for her. She denies any locking or catching, and denies any wrist pain. She denies any falls or known injuries. She says she has been wearing an OTC thumb brace with activities [facility] [place] Medical History Back pain GERD (gastroesophageal reflux disease) COVID-19 vaccine administered Lab test negative for COVID-19 virus Asthma Anxiety Lipoma Pancreatitis Surgical History Hx of esophagogastroduodenoscopy Hx of colonoscopy History of carpal tunnel release (~06/22/20) Status post excision of lipoma Family History Maternal Grandmother History of ovarian cancer Mother History of thyroid disease Social History Alcohol intake: never Patient Tobacco Use Status: Never used Tobacco Current occupational status: employed 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 Review of Systems Const All systems reviewed & are unremarkable except as noted in HPI and below Physical Exam Vital Signs: BMI result Body Mass Index 31.8 Const General: cooperative, healthy appearing and no acute distress Orientation/consciousness: patient oriented x3 HEENT Head: Yes normocephalic and Yes atraumatic Eyes EOM: EOMs intact bilaterally Resp Effort & Inspection: normal respiratory effort and able to speak in complete sentences Cardio Jugular venous distension: no JVD Skin General skin exam: turgor normal Rashes: no rashes Neuro General: patient oriented x3 Extrem Other: Evaluation of Right Upper Extremity: The patient is alert, oriented, and in no acute distress Neuro: Median, Ulnar, Radial nerves motor and sensory intact and sensation is normal to the tips of all digits Vascular: Cap refill brisk ROM: She can make a fist and extend all her digits She can oppose her thumb to the tips of all digits No locking or catching Skin: No lacerations or abrasions. General: No Ecchymosis. No Erythema or evidence of infection. Mildly Tender over the radial and ulnar aspects of the IP joint of the thumb Not particularly tender on the volar side IP joint stable No pain with axial loading No tenderness over the basal joint No tenderness over the MCP joint or a1 bianka No tenderness over the 1st dorsal compartment MCP joint stable Radiographs: 3 views of the right hand from 01/15/23 were reviewed by me today in clinic. They show no fractures, dislocations, or arthritic changes. Psych Appearance: grossly normal Affect: normal affect Attitude: cooperative Assessment & Plan Assessment & Plan (1) Pain in thumb joint with movement of right hand: Code(s): M25.541 - Pain in joints of right hand Category: Medical Plan Assessment & Plan: 1. Right thumb IP joint pain Etiology unclear, no injury I educated her about this condition I recommend activity modification, and she is in agreement She should limit or avoid any heavy or repetitive pinching or gripping activities, and should work on gentle ROM exercises at home If her symptoms increase in frequency or severity she can follow up to discuss alternative treatment options Otherwise, follow up prn Scribed for Gretchen Thorpe MD by Truman Sinha emergency medical service manager, on 10/30/24 at 9:05 AM, EST. Coding Level of Care Code Est Pt Level 3 (66088) Diagnoses Pain in thumb joint with movement of right hand M25.541
[2024-04-07 08:38] VITALS: BMI 31.8
== END 2024-04-07 09:20 | disposition home or self-care (01) ==
LOC: HO.HOS 08:33
PROVIDERS: PCP Internal Medicine; Visit Provider Orthopaedic Surgery
DX: M25.541 Pain in joints of right hand (principal)
CPT/HCPCS: 99213

== ENCOUNTER → 2024-04-07 08:32 | Outpatient (BNVA) | payer OTHER, SELFPAY | PROVIDERS: PCP Internal Medicine; Visit Provider Orthopaedic Surgery ==

== ENCOUNTER → 2024-05-27 15:32 | Outpatient (AMB) | payer OTHER, SELFPAY ==
[2024-05-27 15:46] VITALS: BP 124/74; PULSE 72; O2SAT 97; BMI 32.2
--- NOTE | 2024-05-27 15:46 | A.OFFVIS_ITS ---
Vital Signs 05/27/24 15:46 Height 5 ft 4 in Weight 187 lb 13.341 oz BMI 32.2 BP 124/74 Blood Pressure Location Lt brachial Position Sitting Pulse 72 Pulse Source Pulse Oximeter Pulse Oximetry (%) 97 Oxygen Delivery Method Room Air Intake Visit Reasons: 4 mos FUV. Intake Note: ESTABLISHED PATIENT Joan presents in office today for a scheduled 4 mos FUV. Meds reviewed? Y Allergies reviewed? Y No recent or relevant surgeries? None Any significant concerns or new changes? Pt would like to discuss lactose intolerance concerns and possible testing. Pharmacy verified? [facility] Required: No Allergies cinnamon Allergy (Mild, Verified 05/27/24 15:46) Anaphylaxis kiwi Allergy (Verified 05/27/24 15:46) Anaphylaxis pineapple Allergy (Verified 05/27/24 15:46) Anaphylaxis strawberry Allergy (Verified 05/27/24 15:46) Anaphylaxis peaches Allergy (Mild, Uncoded 04/07/24 08:34) Anaphylaxis HPI HPI 4 mos FUV.: Details: LAST VISIT: GERD (gastroesophageal reflux disease) IBS (irritable bowel syndrome) Postprandial epigastric pain Constipation Plan Continue low FODMAP diet. Will put Linzess on hold and patient will try to take Dulcolax daily. Increase fiber intake daily as well increase fluid intake and activity to promote better bowel motility. Will change Nexium to lansoprazole. Avoid dietary triggers and late night snacking. Eating small meals and more often. Staying upright for minimum 3 hours after meals discussed with patient as well. Patient will take famotidine at bedtime. Patient will follow-up in the office in 4 months, sooner on as needed basis. She is agreeable to this plan and verbalizes understanding of instructions. She was given the opportunity to ask questions and all questions answered. ? Thank you for allowing me to participate in her care Medications New bisacodyl (Dulcolax (bisacodyl)) 10 mg (2 x 5 mg) PO BEDTIME 60 tabs 4RF famotidine 40 mg PO BEDTIME 90 tabs 3RF K21.9 lansoprazole 30 mg PO DAILY 30 caps 3RF K21.9 Discontinued esomeprazole magnesium Discontinued Reason: Doctor's Order 40 mg PO DAILY 90 caps 3RF K21.9 On Hold linaclotide (Linzess) Hold Comment: Doctor's Order 145 mcg PO DAILY 30 caps 2RF TODAY'S VISIT Patient is here today for follow-up. Patient reports that her symptoms of acid reflux are suppressed for the most part, however patient feels like she will still have acid reflux depending on what she eats. Patient noticed that when she has popcorn in the movies with butter she will have severe epigastric pain and then diarrhea. Sometimes patient feels like the acid and burning is going all the way up to her throat. However patient does admit that this is only with certain food that she eats. For the most part patient is doing well. Feels like when she has something with lactose she is having these symptoms as well. For instance with ice cream. Patient is unable to tolerate onions and other vegetables that are on the high FODMAP list. Currently patient is moving her bowels better. We put Linzess on hold and patient reports that she is doing well with Dulcolax tablets. Patient reports that she feels like she drinks enough fluid, however she probably should increase her fluid intake. Patient reports occasional dyspepsia without dysphagia or odynophagia. Denies melena, hematochezia, unintentional weight loss or ribbon like stools. In the past patient had normal HIDA scan, as well as normal gastric emptying study, CT scan was also normal. 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 Review of Systems Const Denies weight gain and Denies weight loss ENT Reports no additional complaints, Denies dysphagia and Denies odynophagia Card Reports no additional complaints Resp Reports no additional complaints GI Reports abdominal pain (Epigastric), Denies belching, Denies melena, Reports bloating, Denies change in bowel habits, Reports constipation (Improved with Dul colax), Denies dysphagia, Denies excessive flatus, Denies dyspepsia, Reports heartburn, Denies diarrhea, Denies loose stools, Denies nausea, Denies odynophagia and Denies vomiting Reports no additional complaints Musc Reports no additional complaints Neuro Reports no additional complaints Psych Reports no additional complaints Endo Reports no additional complaints Physical Exam Vital Signs: Last Vital Signs Pulse 72 05/27/24 15:46 BP 124/74 05/27/24 15:46 Pulse Ox 97 05/27/24 15:46 Oxygen Delivery Method Room Air 05/27/24 15:46 BMI result Body Mass Index 32.2 Const General: healthy appearing and no acute distress Nutritional Appearance: obese Orientation/consciousness: patient oriented x3 Resp Effort & Inspection: normal respiratory effort, able to speak in complete sentences, no tracheal deviation and symmetric chest movement Auscultation: clear to auscultation bilaterally Cardio Rate: regular rate GI Inspection: Yes normal to inspection, No distended and Yes obesity Palpation (GI): Soft to palpation, not firm, nontender and No hepatosplenomegaly present Auscultation: normal bowel sounds General: Yes no CVA tenderness Back/Spine/Pelvis Back: no CVA tenderness Skin General skin exam: elasticity normal, turgor normal and dry skin Neuro General: patient oriented x3 Psych Appearance: grossly normal Mental Status: mental status grossly normal Assessment & Plan Assessment & Plan (1) GERD (gastroesophageal reflux disease): Code(s): K21.9 - Gastro-esophageal reflux disease without esophagitis Qualifiers: Esophagitis presence: esophagitis presence not specified Qualified Code(s): K21.9 - Gastro-esophageal reflux disease without esophagitis (2) IBS (irritable bowel syndrome): Code(s): K58.9 - Irritable bowel syndrome, unspecified Qualifiers: Irritable bowel syndrome type: without diarrhea Qualified Code(s): K58.9 - Irritable bowel syndrome, unspecified (3) Postprandial epigastric pain: Code(s): R10.13 - Epigastric pain (4) Constipation: Code(s): K59.00 - Constipation, unspecified Qualifiers: Constipation type: slow transit constipation Qualified Code(s): K59.01 - Slow transit constipation Plan Will check patient's liver enzymes and lipase. She does reports epigastric pain after meals. Will send patient for upper GI with barium swallow to rule out reflux. Patient reports sometimes feeling burning going up all the way to her throat. Patient will continue taking lansoprazole in the morning. Avoid dietary triggers and late night snacking. Staying upright for minimum 3 hours after meals discussed with patient. Patient will continue taking Dulcolax. Increase fluid intake and activity to promote better bowel motility. Patient will return to the office in 6 months, sooner on as needed basis. She is agreeable to this plan and verbalizes understanding of instructions. She will call our office if she will have any GI concerning symptoms. Patient was given the opportunity to ask questions and all questions answered. Thank you for allowing me to participate in her care Orders: Orders Liver Panel Today R74.01 - Elevation of levels of liver transaminase levels FL upper GI w Ba Swallow Today K21.9 - Gastro-esophageal reflux disease without esophagitis Lipase Today R10.9 - Unspecified abdominal pain Medications: Discontinued linaclotide (Linzess) Discontinued Reason: Doctor's Order 145 mcg PO DAILY 30 caps 2RF Coding Level of Care Code Est Pt Level 4 (69218) Complex EM visit Add On G2211 Diagnoses Gastroesophageal reflux disease, unspecified whether esophagitis present K21.9 Esophagitis presence: esophagitis presence not specified Irritable bowel syndrome without diarrhea K58.9 Irritable bowel syndrome type: without diarrhea Postprandial epigastric pain R10.13 Slow transit constipation K59.01 Constipation type: slow transit constipation Time Spent (min) 35 Comment 25 minutes spent with patient and additional 10 minutes spent reviewing her records
== END ==
PROVIDERS: PCP Internal Medicine; Visit Provider Nurse Practitioner Family
DX: K21.9 Gastro-esophageal reflux disease without esophagitis (principal); K58.9 Irritable bowel syndrome, unspecified; R10.13 Epigastric pain; K59.01 Slow transit constipation
CPT/HCPCS: 99214

== ENCOUNTER 2024-06-11 14:44 | Outpatient (REF) | payer OTHER, SELFPAY ==
--- NOTE | ~2024-06-11 | MM_ITS ---
EXAMINATION: MM SCREENING DIGITAL BREAST TOMOSYNTHESIS, BILATERAL CLINICAL INFORMATION: Screening. Asymptomatic. COMPARISON: Mammography: Comparison is made with available priors TECHNIQUE: Digital breast mammography with tomosynthesis is performed in both the craniocaudal and mediolateral oblique views along with computer-aided detection (CAD). FINDINGS: There are scattered areas of fibroglandular density (ACR BI-RADS breast composition Category b). There are no significant masses, abnormal calcifications, or other abnormalities. MM/MM tomosynthesis screening BI IMPRESSION: No mammographic evidence of malignancy. ASSESSMENT: BI-RADS BI-RADS 1 - Negative RECOMMENDATION: Routine annual mammography screening. 1 year F/U This examination should not preclude the clinical evaluation of a suspicious palpable abnormality. This patient's information was entered into a reminder system with a target due date for their next mammogram. Electronically signed by: Keri Figueroa DO 06/20/2024 10:15 AM TERI
== END 2024-06-11 14:45 | disposition home or self-care (01) ==
LOC: HO.MAMMO 14:44
PROVIDERS: PCP Internal Medicine; Visit Provider Internal Medicine
DX: Z12.31 Encounter for screening mammogram for malignant neoplasm of breast (principal)
CPT/HCPCS: 77063; 77067

== ENCOUNTER → 2024-06-11 15:00 | Outpatient (BNV) | payer OTHER, SELFPAY | PROVIDERS: PCP Internal Medicine; Visit Provider Internal Medicine | DX: Z12.31 Encounter for screening mammogram for malignant neoplasm of breast (principal) | CPT/HCPCS: 77063; 77067 ==

== ENCOUNTER 2024-08-17 08:10 | Outpatient (REF) | payer OTHER, SELFPAY ==
--- NOTE | ~2024-08-17 | FL_ITS ---
EXAMINATION: XR GI SERIES CLINICAL INFORMATION: Gastroesophageal reflux disease without esophagitis COMPARISON: None available. TECHNIQUE: Routine upper GI barium swallow study was performed in upright and lying position. FINDINGS: Following oral administration of thick barium and and barium coated solids and cracker is a solid food and upright view there is normal propagation bolus from the oral cavity through the pharynx, esophagus into stomach without any evidence of obstruction, narrowing or stricture. On placing patient in supine and prone lying the course, caliber and peristalsis of the esophagus and stomach is normal. There is mild gastroesophageal reflux without hiatal hernia. The mucosal pattern of esophagus, stomach and the duodenum is normal. FLUOROSCOPY TIME: 2 minutes 22 seconds DOSE AREA PRODUCT: 1284 uGy-m2 (microgray-meter squared) FL/FL upper GI w Ba Swallow IMPRESSION: Mild gastroesophageal reflux without hiatal hernia. Otherwise unremarkable upper GI air contrast study and barium swallow. Electronically signed by: Raymundo Peck MD 08/17/2024 09:23 AM EDT
--- OUTSIDE RECORDS SUMMARY | 2024-08-17 08:37 | XMS_ITS | Encounter Summary ---
Author Organization [employer] Address [address] [place] [address] Care Team Providers Care Windows Application Developer Name Role Phone Aditi Matias MD Primary Care Provider + Encounter Details Date Type Department Care Team (Late st Contact Info) Description 05/22/2022 Orders Only [facility] [address] [place] [address] Rachel Ochoa LPN Social History Tobacco Use Types Packs/Day Years Used Date Smoking Tobacco: Never Assessed Comments Unknown Sex and Gender Information Value Date Recorded Sex Assigned at Female 04/08/2022 10:14 AM EDT Legal Sex Female 10:14 AM EDT Gender Identity Female 04/08/2022 10:14 AM EDT Sexual Orientation Choose not to disclose 2021 10:14 AM EDT documented as of this encounter Plan of Treatment Upcoming Encounters Date Type Department Care Team (Late st Contact Info) Description 08/30/2024 9:00 AM EDT Nutrition [facility] [address] [place] [address] [place] [address] documented as of this encounter Visit Diagnoses Not on filedocumented in this encounter Care Teams Windows Application Developer Relationship Specialty Start Date End Date Aditi Matias MD [address] [place] [address] PCP - General Family Medicine 02/10/19 documented as of this encounter
--- OUTSIDE RECORDS SUMMARY | 2024-08-17 08:37 | XMS_ITS | Encounter Summary ---
Author Organization [employer] Address [address] [address] [place] [address] Care Team Providers Care Actuary Name Role Phone Aditi Matias MD Primary Care Provider + Reason for Visit * Reason Onset Date Comments TC/ Joint injectio 07/23/2024 Encounter Details Date Type Department Care Team ([facility] st Contact Info) Description 07/23/2024 Telephone [facility] [address] [place], [place] [phone] Aditi Matias MD [address] [place] [address] TC/ Joint injectio Social History Tobacco Use Types Packs/Day Years Used Date Smoking Tobacco: Never Smokeless Tobacco: Never Alcohol Use Standard Drinks/Week Comments Not Currently 0 (1 standard drink = 0.6 oz pur e alcohol) oca Housing Stability Answer Date Recorded What is your housing situation today? I have radha dyson 10/03/[address] you li ve. Do you have problems with any of the following? None of the above 10/03/2023 Food Insecurity Answer Date Recorded Within the past 12 months, y ou worried that your food would run out before you got money to buy more: Never True 10/03/2023 Within the past 12 months,th e food you bought just didn't last and you didn't have enough money to get more: Never True Transportation Answer Date Recorded In the past 12 months, has l ack of transportation kept you from medical appts, meetings, work or from getting things needed for daily living? No 10/03/2023 Utilities Answer Date Recorded In the past 12 months, has t he electric, gas, oil or water company threatened to shut off services in your home? No 10/03/2023 Depression Answer Date Recorded Patient Health Questionnaire-2 Score 0 10/03/2023 Comments No Sex and Gender Information Value Date Recorded Sex Assigned at Female 04/08/2022 10:14 AM EDT Legal Sex Female 10:14 AM EDT Gender Identity Female 04/08/2022 10:14 AM EDT Sexual Orientation Choose not to disclose 2021 10:14 AM EDT documented as of this encounter Miscellaneous Notes * Telephone Encounter - Arleth Nelson [place] - 07/23/2024 11:46 AM EST LM-V to call back. PARs please schedule an appt on at the [place] site with Dr. Rodriguez for shoulder Injection. documented in this encounter Plan of Treatment Upcoming Encounters Date Type Department Care Team (Late st Contact Info) Description 08/30/2024 9:00 AM EDT Nutrition [facility] DI[facility]/NUTRITION [address] [place] [address] [place] [address] documented as of this encounter Visit Diagnoses Not on filedocumented in this encounter Care Teams Actuary Relationship Specialty Start Date End Date Aditi Matias MD [address] [place] [address] PCP - General Family Medicine 02/10/19 documented as of this encounter
--- OUTSIDE RECORDS SUMMARY | 2024-08-17 08:37 | XMS_ITS | Clinical Summary ---
Author Organization [facility] Address [address] [place] [address] Care Team Providers Care Central Supply Aide Name Role Phone Unavailable Primary Care Provider Unavailabl e Social History Tobacco Use Types Packs/Day Years Used Date Smoking Tobacco: Never Assessed Sex and Gender Information Value Date Recorded Sex Assigned at Not on file Gender Identity Not on file Sexual Orientation Not on file Plan of Treatment Not on file
--- OUTSIDE RECORDS SUMMARY | 2024-08-17 08:37 | XMS_ITS | Encounter Summary ---
Author Organization [employer] Address [address] [facility] [address] [place] [address] Care Team Providers Care Striker Off Name Role Phone Aditi Matias MD Primary Care Provider + Reason for Visit * Reason Comments Shoulder Injection right Encounter Details Date Type Department Care Team (Latest Contact Info) Description 08/10/2024 11:30 AM EST Procedure Visit [facility] MED & PEDS [address] [place], [place] [phone] Alissa Rodriguez MD [address] [place], [place] [phone] Chronic right shoulder pain (Primary Dx) Social History Tobacco Use Types Packs/Day Years [...] t he electric, gas, oil or water [employer] threatened to shut off services in your [...] AM EDT documented as of this encounter Last Filed Vital Signs Vital Sign Reading Time Taken Comments Blood Pressure 112/64 08/10/2024 11:50 AM EST Pulse 69 08/10/2024 11:50 AM EST Temperature 36.3 ??C (97.4 ??F) 08/10/2024 11:[address] Respiratory Rate 18 08/10/2024 11:50 AM EST Oxygen Saturation - - Inhaled Oxygen Concentration - - Weight 84.4 kg (186 lb) 08/10/2024 11:50 AM EST Height 162.6 cm (5' 4 ) 08/10/2024 11:50 AM EST Body Mass Index 31.93 08/10/2024 11:50 AM EST documented in this encounter Progress Notes * Alissa Rodriguez MD - 08/10/2024 11:30 AM ESTAssociated Order(s): Arthrocentesis Post-Procedure Diagnose(s): Chronic right shoulder pain Subjective Patient ID: Joan Rivero is a 48 y.o. female who presents for Shoulder Injection. Shoulder Pain The pain is present in the right shoulder. This is a chronic problem. The current episode started more than 1 year ago. There has been no history of extremity trauma. The problem occurs constantly. The problem has been gradually worsening. The quality of the pain is described as aching. The pain isat a severity of 6/10. The pain is moderate. Associated symptoms include joint locking and a limited range of motion. The symptoms are aggravated by activity. She has tried acetaminophen for the symptoms. The treatment provided mild relief. Her past medical history is significant for osteoarthritis. Patient ID: Joan Rivero is a 48 y.o. female. Arthrocentesis Date/Time: 08/10/2024 11:38 AM Performed by: Alissa Rodriguez MD Authorized by: Alissa Rodriguez MD Consent: Consent obtained: Verbal and written Consent given by: Patient Risks, benefits, and alternatives were discussed: yes Risks discussed: Pain Alternatives discussed: Referral [place] protocol: Procedure explained and questions answered to patient or proxy's satisfaction: yes Relevant documents present and verified: yes Test results available: yes Imaging studies available: yes Required blood products, implants, devices, and special equipment available: yes Site/side marked: yes Immediately prior to procedure, a time out was called: yes Patient identity confirmed: Verbally with patient Location: Location: Shoulder Shoulder: R glenohumeral Anesthesia: Anesthesia method: Topical application Procedure details: Preparation: Patient was prepped and draped in usual sterile fashion Needle gauge: 22 G Ultrasound guidance: no Approach: Posterior Steroid injected: yes Specimen collected: no Post-procedure details: Dressing: Adhesive bandage Procedure completion: Tolerated Review of Systems Constitutional: Negative. Respiratory: Negative. Negative for shortness of breath. Cardiovascular: Negative for chest pain and palpitations. Gastrointestinal: Negative. Genitourinary: Negative. Musculoskeletal: Negative for neck pain. Neurological: Negative for headaches. Objective Physical Exam Constitutional: Appearance: Normal appearance. Cardiovascular: Rate and Rhythm: Normal rate and regular rhythm. Pulses: Normal pulses. Heart sounds: Normal heart sounds. Pulmonary: Effort: Pulmonary effort is normal. Abdominal: General: Abdomen is flat. Neurological: Mental Status: She is alert. Assessment/Plan Diagnoses and all orders for this visit: Chronic right shoulder pain Comments: Pt injected with 2ml of 40mg kenolog and 2ml of 1%lidocaine pt tolerated the procedure well Advised Ice and Active motion Orders: - triamcinolone acetonide (Kenalog-40) injection 40 mg - lidocaine (Xylocaine) 1 % injection 20 mg - triamcinolone acetonide (Kenalog-40) injection 40 mg Other orders - Arthrocentesis documented in this encounter Plan of Treatment Upcoming Encounters Date Type Department Care Team (Late st Contact Info) Description 08/30/2024 9:00 AM EDT Nutrition [facility] DIABETES/NUTRITION [address] [place] [address] [place] [address] documented as of this encounter Procedures Procedure Name Priority Date/Time Associated Diagnosis Comments [place] ARTHROCENTESIS ASPIR&/INJ MAJOR JT/BURSA W/O US Routine 08/10/2024 11:38 AM EST Chronic right shoulder pain documented in this encounter Results * [place] ARTHROCENTESIS ASPIR&/INJ MAJOR JT/BURSA W/O US (08/10/2024 11:38 AM EST) Narrative Alissa Rodriguez MD - 08/10/2024 11:38 AM EST Alissa Rodriguez MD ? 08/10/2024 11:48 AM Arthrocentesis Date/Time: 08/10/2024 11:38 AM Performed by: Alissa Rodriguez MD Authorized by: Alissa Rodriguez MD ?? Consent: ??Consent obtained: ??Verbal and written ??Consent given by: ??Patient ??Risks, benefits, and alternatives were discussed: yes ?Risks discussed: ??Pain ??Alternatives discussed: ??Referral [place] protocol: ??Procedure explained and questions answered to patient or proxy's satisfaction: yes ?Relevant documents present and verified: yes ?Test results available: yes ?Imaging studies available: yes ?Required blood products, implants, devices, and special equipment available: yes ?Site/side marked: yes ?Immediately prior to procedure, a time out was called: yes ?Patient identity confirmed: ??Verbally with patient Location: ??Location: ??Shoulder ??Shoulder: ??R glenohumeral Anesthesia: ??Anesthesia method: ??Topical application Procedure details: ??Preparation: Patient was prepped and draped in usual sterile fashion ?Needle gauge: ??22 G ??Ultrasound guidance: no ?Approach: ??Posterior ??Steroid injected: yes ?Specimen collected: no ?? Post-procedure details: ??Dressing: ??Adhesive bandage ??Procedure completion: ??Tolerated us Alissa Rodriguez MD IN CLINIC/BEDSIDE ORDERABLES Fin al Result documented in this encounter Visit Diagnoses Diagnosis Chronic right shoulder pain- Primary Pain in joint, shoulder region documented in this encounter Administered Medications Inactive Administered Medications - up to 3 most recent administrations Medication Order MAR Action Action Date Dose Rate Site lidocaine (Xylocaine) 1 % injection 20 mg 20 mg (2 mL), Injection, Once, On Fri08/10/24 at 1200, For 1 doseIndications:Chronic right shoulder pain Given 08/10/2024 12:00 PM EST 20 mg triamcinolone acetonide (Kenalog-40) injection 40 mg 40 mg, Intra-articular, Once, On Fri08/10/24 at 1200, For 1 doseIndications:Chronic right shoulder pain Given 08/10/2024 12:00 PM EST 40 mg triamcinolone acetonide (Kenalog-40) injection 40 mg 40 mg, Intra-articular, Once, On Fri08/10/24 at 1200, For 1 doseIndications:Chronic right shoulder pain Given 08/10/2024 12:00 PM EST 40 mg documented in this encounter Care Teams Striker Off Relationship Specialty Start Date End Date Aditi Matias MD [address] [place] [id number] PCP - General Family Medicine 02/10/19 documented as of this encounter
--- OUTSIDE RECORDS SUMMARY | 2024-08-17 08:37 | XMS_ITS | Encounter Summary ---
Author Organization [employer] Address [address] [facility] [address] [place] [address] Care Team Providers Care Outsole Cutter Machine Name Role Phone Aditi Matias MD Primary Care Provider + Encounter Details Date Type Department Care Team (Late Contact Info) Description 06/28/2022 Telephone [facility] MEDICINE [address] [place], [place] [phone] Aditi Matias MD [address] [place] [address] Social History Tobacco Use Types Packs/Day Years Used Date Smoking Tobacco: Never Smokeless Tobacco: Never Comments Unknown Sex and Gender Information Value Date Recorded Sex Assigned at Female 04/08/2022 10:14 AM EDT Legal Sex Female 10:14 AM EDT Gender Identity Female 04/08/2022 10:14 AM EDT Sexual Orientation Choose not to disclose 2021 10:14 AM EDT COVID-19 Exposure Response Date Recorded In the last 10 days, have yo u been in contact with someone who was confirmed or suspected to have Coronavirus/COVID-19? No / Unsure 06/11/2022 10:06 AM EST documented as of this encounter Plan of Treatment Upcoming Encounters Date Type Department Care Team (Late Contact Info) Description 08/30/2024 9:00 AM EDT Nutrition [facility] DIABETES/NUTRITION [address] [place] [address] Allison Barros, RD [address] [place] [address] documented as of this encounter Visit Diagnoses Not on filedocumented in this encounter Care Teams Outsole Cutter Machine Relationship Specialty Start Date End Date Aditi Matias MD [address] [place] [address] PCP - General Family Medicine 02/10/19 documented as of this encounter
--- OUTSIDE RECORDS SUMMARY | 2024-08-17 08:37 | XMS_ITS | Encounter Summary ---
Author Organization [employer] Address [address] [facility] [address] [place] [address] Care Team Providers Care Packaging Sales Consultant Name Role Phone Aditi Matias MD Primary Care Provider + Encounter Details Date Type Department Care Team ([facility] st Contact Info) Description 02/17/2023 Telephone [facility] MEDICINE [address] [place], [place] [phone] Aditi Matias MD [address] [place] [address] Social History Tobacco Use Types Packs/Day Years Used Date Smoking Tobacco: Never Smokeless Tobacco: Never Alcohol Use Standard Drinks/Week Comments Not Currently 0 (1 standard drink = 0.6 oz pur e alcohol) oca Depression Answer Date Recorded Patient Health Questionnaire-2 Score 0 09/17/2022 Comments Unknown Sex and Gender Information Value Date Recorded Sex Assigned at Female 04/08/2022 10:14 AM EDT Legal Sex Female 10:14 AM EDT Gender Identity Female 04/08/2022 10:14 AM EDT Sexual Orientation Choose not to disclose 2021 10:14 AM EDT documented as of this encounter Miscellaneous Notes * Telephone Encounter - Mady Denise RN - 02/21/2023 2:40 PM EDT Images from the original note were not included. Triage call in response to Pt portal message below. Pt reports Covid since 02/17/23. Reviewed all home care with Pt and Pt is already doing all home care suggestions. Pt is also gargling with warm salt water. Pt reports left tonsil is red and swollen, no white blotches/spots noted. Pt is advised to eat popsicles, cold drinks , soft foods and see if that helps reduce the irritation. Pt is advised if this increases causing difficulty swallowing to seek evaluation in Ed. Pt agrees. Pt will do the home care advised and if not better by Friday02/24/23 will come to [facility] to be seen by provider. Pt is very aware of self help . Pt agrees with this disposition and plan. Protocol Used: COVID-19 - Diagnosed or Suspected (Adult) Protocol-Based Disposition: Home Care Positive Triage Question: * COVID-19 diagnosed by positive lab test (e.g., PCR, rapid self-test kit) and mild symptoms (e.g.,cough, fever, others) and no complications or SOB * All higher-acuity triage questions were negative Care Advice Discussed: * Reassurance and Education - Positive COVID-19 Lab Test and Mild Symptoms * General Care Advice for COVID-19 Symptoms * Cough Medicines * Humidifier * Coughing Spells * Reasons To Call Back - Fever over 103 F (39.4 C) - Fever lasts over 3 days - Fever returns after being gone for 24 hours - Chest pain or difficulty breathing occurs - You become worse Joan Tafoya [facility] Clinical Support (supporting Aditi Matias MD) 4 hours ago (9:50 AM) HORTENSIA Contreras, I tested positive for COVID on Friday at [facility]. I was reaching out to ask for some suggestion on how to manage some throat concerns I have. I throat is very soar and hard to swallow at time,I have been using [place], honey, non caffeine tea. Cold beverages like water and gatorade at home. it has been hard for me to sleep because of the this situation and I would like to get some suggestions on what I can do to help manage this. Thank you * Telephone Encounter - Hallie Sigala - 02/17/2023 2:01 PM EDT Tc from pt requesting status on referral to Polysomnography . Would like to know where she will be going to . documented in this encounter Plan of Treatment Upcoming Encounters Date Type Department Care Team (Late st Contact Info) Description 08/30/2024 9:00 AM EDT Nutrition [facility] DIABETES/NUTRITION [address] [place], [place] [phone] Allison Barros [address] [place], [place] [phone] documented as of this encounter Visit Diagnoses Not on filedocumented in this encounter Care Teams Packaging Sales Consultant Relationship Specialty Start Date End Date Aditi Matias MD [address] [place] [address] PCP - General Family Medicine 02/10/19 documented as of this encounter
--- OUTSIDE RECORDS SUMMARY | 2024-08-17 08:37 | XMS_ITS | Encounter Summary ---
Author Organization [employer] Address [address] [facility] [address] [place] [address] Care Team Providers Care Industrial Engineering Technologist Name Role Phone Aditi Matias MD Primary Care Provider + Encounter Details Date Type Department Care Team (Latest Contact Info) Description 08/10/2024 Travel Social History Tobacco Use Types Packs/Day Years [...] Info) Description 08/30/2024 9:00 AM EDT Nutrition [facility] DIABETES/NUTRITION [address] [place] [address] [place], [place] [phone] documented as of this encounter Visit Diagnoses Not on filedocumented in this encounter Care Teams Industrial Engineering Technologist Relationship Specialty Start Date End Date Aditi Matias MD [address] [place], [place] [phone] PCP - General Family Medicine 02/10/19 documented as of this encounter
--- OUTSIDE RECORDS SUMMARY | 2024-08-17 08:37 | XMS_ITS | Clinical Summary ---
Author Organization [employer] Address [address] [facility] [address] [place] [address] Care Team Providers Care Bulk Driver Name Role Phone Aditi Matias MD Primary Care Provider + Allergies Active Allergy Reactions Criticality Noted Date Comments Wagoner Oil Anaphylaxis High 03/05/2021 Chicken Allergy 04/05/2013 Other reaction(s): hives Cinnamon 09/17/2022 Kiwi Extract 09/17/2022 [place] Flavoring Agent (Non-Screening) 09/17/2022 Pineapple Anaphylaxis High 03/05/2021 Pineapple Extract 05/16/2021 Ward Extract Anaphylaxis High 04/05/2013 Other reaction(s): WHEEZING Alitraq 08/15/2017 Medications acetaminophen (Tylenol 8 Hour) 650 MG ER tablet Take 650 mg by mouth every 6 (six) hours if needed. 11/10/19 22 Active Linzess 145 MCG capsule Take 145 mcg by mouth in the morning. 02/02/20 22 Active omeprazole (PriLOSEC) [address] capsule Take 40 mg by mouth in the morning. 07/26/19 22 Active cetirizine (ZyrTEC) 10 MG tablet TAKE 1 TABLET BY MOUTH EVERY DAY 90 tablet 05/16/20 23 Active Mometasone Furoate (Asmanex HFA) 200 MCG/ACT aerosol INHALE 4 PUFFS IN AM, NOON,& BEDTIME FOR 5 DAYS, THEN 2 PUFFS AM, NOON,& BEDTIME FOR 5 DAYS, THEN 2 PUFFS 2X FOR 5 DAYS, THEN 2 PUFFS AM 13 g 6 12/03/19 24 Active albuterol 108 (90 Base) MCG/ACT inhalerIndicatio ns:Mild intermittent asthma without complication INHALE 2 PUFFS BY MOUTH EVERY 4 TO 6 HOURS NEEDED 25.5 g 3 12/03/19 24 Active cyclobenzaprine (Flexeril) 5 MG tabletIndication s:Neck strain, initial encounter Take 1 tablet (5 mg) by mouth if needed in the morning, at noon, and at bedtime for muscle spasms for up to 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 75 mL 1 01/21/20 24 025 Active escitalopram (Lexapro) 5 MG tablet Take 1 tablet (5 mg) by mouth Once per day. 90 tablet 2 04/09/20 24 025 Active LORazepam (Ativan) 0.5 MG tabletIndication s:Anxiety Take 1 tablet (0.5 mg) by mouth 1 (one) time if needed for anxiety for up to 2 doses. Take one tablet 1-2 hours before flight on 07/01/24 and again on 07/07/24. 2 tablet 06/29/19 25 Active fluticasone (Flonase) 50 MCG/ACT nasal spray Administer 1 spray into each nostril Once per day. 16 g 3 07/13/19 25 Active predniSONE (Deltasone) 20 MG tablet Take 2 tablets (40 mg) by mouth Once per day for 5 days. 10 tablet 07/23/19 25 025 traMADol (Ultram) 50 MG tabletIndication s:Adhesive capsulitis of right shoulder Take 1 tablet (50 mg) by mouth every 6 (six) hours if needed for severe pain for up to 5 days. 15 tablet 07/23/19 25 025 Hospital, Clinic, or Other Facility Administered Medication Ordered Dose Route Frequency Start Date End Date Status triamcinolone acetonide (Kenalog-40) injection 40 mgIndications:Chronic right shoulder pain 40 mg IX Once 08/10/2024 08/10/2024 Ended lidocaine (Xylocaine) 1 % injection 20 mgIndications:Chronic right shoulder pain 20 mg IJ Once 08/10/2024 08/10/2024 Ended triamcinolone acetonide (Kenalog-40) injection 40 mgIndications:Chronic right shoulder pain 40 mg IX Once 08/10/2024 08/10/2024 Ended Active Problems Problem Noted Date Diagnosed Date Class 1 obesity due to exces s calories without serious comorbidity with body mass index (BMI) of 31.0 to 31.9 in adult 07/13/2024 Assessment & Plan (07/13/2024 2:54 PM EST): Discussed re weight reduction options including exercise, life style modifications, diet. Recommended to decrease soda and sugary beverage consumption, increase protein intake with meals (at least 1 portion of protein with each meal) to assist with satiety, increase dietary fiber Recommended at least 150 min/week of moderate intensity exercise. Refer to nutrition svc Will check RBS and A1c due to high risk of diabetes. At risk of diabetes mellitus 07/13/2024 Assessment & Plan (07/13/2024 1:32 PM EST): First degree family member with DM, pt has obesity. Will check RBS and A1c. Agoraphobia with panic disorder 02/13/2024 Assessment & Plan (07/13/2024 1:31 PM EST): She is doing well on Lexapro 5 mg, continue same medication and FU with me in 6 months. Advised to continue relaxation techniques including CBT on routine basis. She will call for Lorazepam PRN for airplane travel. She feels safe at home and is able to reach out for safety. Assessment & Plan (04/09/2024 12:02 PM EDT): Improving, see above. Acute maxillary sinusitis 12/18/2023 Assessment & Plan (12/18/2023 1:30 PM EDT): Drink plenty of fluids and rest acetaminophen PRN if needed Shoulder pain, right 06/07/2023 Assessment & Plan (12/03/2023 11:53 AM EDT): - has not been able to do MRI due to agoraphobia, she will start anxiety medications and f/u to reschedule MRI - continue Tylenol PRN Assessment & Plan (06/07/2023 3:15 PM EST): Possible tendon lesion in her shoulder ,there is no deformity nor signs of infection but significant point tenderness -advised for rest -gave today in clinic an arm sling -px naproxen BID w meals and ,tyelnol -prescribed muscle relaxant for few days -prior bedtime-explained to avoid ETOH,and to not drive or use heavy machinery after taking medication -shoulder XR -PT referred today -pt states has apt already to her orthopedic for 07/03/2023 if no better by then may need further imaging as MRI Elevated BP without diagnosis of hypertension Assessment & Plan (06/07/2023 3:17 PM EST): Elevated BP today w no HTN hx likely reactive to pain -pt to f w PCP in 4 weeks to monitor BP Witnessed episode of apnea 01/30/2023 Assessment & Plan (01/30/2023 12:35 PM EDT): Order sleep study FU 6 weeks Irritable bowel syndrome with constipation 09/17 Assessment & Plan (09/17/2022 11:55 AM EDT): Recent ED visit due to constipation, labs wnl fu with GI and continue Linzess Menorrhagia with regular cycle 09/17/2022 Assessment & Plan (09/17/2022 11:57 AM EDT): To keep track of menstruation and fu with me in 4 months if symptoms are persistent she will need to call [employer]GLE [employer] OPERATOR for further eval reassurance most likely related to menopause fu in 4 months Allergic rhinitis 07/10/2022 Visual impairment 07/10/2022 Moderate persistent asthma without complication 07/10/2022 Assessment & Plan (04/09/2024 11:59 AM EDT): Doing well, continue Asmanex daily + Albuterol prn. Advised to have Covid immunization and PCV-20, influenza vaccination UTD. Hip pain 06/28/2022 Carpal tunnel syndrome 06/28/2022 Meralgia paresthetica 06/28/2022 Trochanteric bursitis of right hip 06/28/2022 Assessment & Plan (10/03/2023 1:01 PM EDT): Significantly improving s/p PT, advised to fu pain management regarding MRI Assessment & Plan (01/30/2023 12:33 PM EDT): MRI pending FU w/ pain clinic as scheduled Assessment & Plan (06/28/2022 9:37 AM EST): Not improving sp PT. Refer to Ortho, order Xrays hip Recommended acupuncture Continue Naproxen/Tyelnol/Heat to affected area Continue home PT exercises Mild intermittent asthma 10/23/2017 Assessment & Plan (12/03/2023 11:45 AM EDT): - Migraine without aura, not refractory 10/23/2017 Seasonal allergies 10/23/2017 Anxiety 09/02/2012 Assessment & Plan (04/09/2024 12:02 PM EDT): She is doing better on low doses of Escitalopram, continue on same dose and follow up in 3 months. Discussed potential side effects including decrease sex drive, she will call back prn. Gave her information on CBT, Visualization she will call back prn if she wants to be referred to therapy. Continue on prescription Lorazepam 0.5 mg today to take prior to flight. She feels safe at home and is able to reach out for safety. Assessment & Plan (02/13/2024 12:52 PM EDT): Pt seems to be having panic attacks and agoraphobia, I will start Escitalopram 5 mg and follow up in 6-8 weeks. Discussed with pt regarding coping mechanisms with anxiety such as visualization, CVT, and has information about [facility] to make an appointment with a counselor. She feels safe at home and is able to reach out for safety. Continue Trazodone 5- mg at bedtime. Assessment & Plan (12/03/2023 11:55 AM EDT): - continues to limit some of her ADLs and her life functioning - discussed with pt regarding use of Trazodone 25 mg BID or 50 mg QHS if tolerated (insomnia) - use Hydroxyzine PRN anxiety attack, continue CBT or other therapy techniques for anxiety - encouraged increased exercises and healthy diet Assessment & Plan (10/03/2023 1:01 PM EDT): Pt seems to be doing well w CBT, we discussed about breathing exercises Continue gabapentin at bedtime Use trazodone 25mg BID anxiety and can use hydroxyzine PRN panic attacks Assessment & Plan (01/30/2023 12:31 PM EDT): Pt seems to be having more frequent anxiety attacks, ?BZD tolerance, unclear if 2/2 menopause Discussed tx options such as: CBT, avoidance, breathing Start venlafaxine 37.5 mg Pt feels safe at home and is able to reach-out for safety FU w/ me in 6 weeks Assessment & Plan (09/17/2022 11:55 AM EDT): Given that pt needs to frequently take lorazpam, I discussed with her about taking other medications the day prior to flight in order to avoid increased use of benzodiazepine and potential codependence Will start gabapentin 100mg the day prior to the flight and the day of the flight She will use lorazpam 0.5mg 30 minutes prior to boarding fu in 3 months Gastroesophageal reflux disease 09/02/2012 Resolved Problems Problem Noted Date Diagnosed Date Resolved Date Rhinitis 06/28/2022 07/10/2022 Assessment & Plan (06/28/2022 9:39 AM EST): Residual from recent Influenza Use NS, flonase and humidifier in the room Wear face mask outside to protect nasal mucosa from cold air. FU prn Encounters Date Type Department Care Team Description 08/10/2024 11:30 AM EST Procedure Visit [facility] [address] [place] [address] Alissa Rodriguez MD Chronic right shoulder pain (Primary Dx) 08/10/2024 Travel 07/23/2024 9:40 AM EST Office Visit [facility] [address] [place] [phone] Alissa Rodriguez MD Adhesive capsulitis of right shoulder (Primary Dx) 07/23/2024 Telephone [facility] [address] [place], [place] [phone] Aditi Matias MD TC/ Joint injectio 07/13/2024 10:30 AM EST Office Visit [facility] [address] [place] [phone] Aditi Matias MD Agoraphobia with panic disorder (Primary Dx); Class 1 obesity due to excess calories without serious comorbidity with body mass index (BMI) of 31.0 to 31.9 in adult; At risk of diabetes mellitus; Dietary counseling; Exercise counseling; Encounter for immunization 07/13/2024 Travel 06/30/2024 Patient Outreach [facility] [address] [place] [phone] Aditi Matias MD Pre-visit Planning ((Unable to reach for PVP screening, LVM)) 06/28/[address] [phone] Aditi Matias MD Anxiety 06/11/2024 Orders Only [facility] [address] [place] [address] [phone] Aditi Matias MD 05/24/[address] [phone] Aditi Matias MD July recall from Last 3 Months Immunizations Name Administration Dates Next Due Hep A, Adult 09/25/2011,03/25/2011 Hep B, adult 03/11/2012,09/25/2011,08/13/2011 Influenza Injectable Quadriv alant Preservative Free IIV4 MDCK 03/26/2023,04/18/2022 Influenza injectable quadriv alent IIV4 with preservative 03/17/2019,03/12/2018 Influenza injectable quadriv alent preservative free 04/25/2021,03/01/2020,04/07/2017 Influenza, IIV3, injectable 03/25/2011 Influenza, Split (incl. roderick fied surface antigen) 04/09/2013,03/11/2012 MMR 08/13/2011 Pneumococcal Conjugate PCV 20 07/13/2024 Pneumococcal Polysaccharide PPSV23 02/20/2001 TD (adult), 2 Lf tetanus tox oid, preservative free, adsorbed 02/20/2001 Tdap 02/03/2019,03/11/2012 Varicella 03/11/2012 Social History Tobacco Use Types Packs/Day Years Used Date Smoking Tobacco: Never Smokeless Tobacco: Never Tobacco Cessation:Counseling Given: Not Answered Alcohol Use Standard Drinks/Week Comments Not Currently [...] not to disclose 2021 10:14 AM EDT Last Filed Vital Signs Vital Sign Reading Time Taken Comments Blood Pressure 112/64 08/10/2024 11:50 AM EST Pulse 69 08/10/2024 11:50 AM EST Temperature 36.3 ??C (97.4 ??F) 08/10/2024 11:[address] Respiratory Rate 18 08/10/2024 11:50 AM EST Oxygen Saturation 99% 07/13/2024 10:38 AM EST Inhaled Oxygen Concentration - - Weight 84.4 kg (186 lb) 08/10/2024 11:50 AM EST Height 162.6 cm (5' 4 ) 08/10/2024 11:50 AM EST Body Mass Index 31.93 08/10/2024 11:50 AM EST Plan of Treatment Upcoming Encounters Date Type Department Care Team (Late st Contact Info) Description 08/30/2024 9:00 AM EDT Nutrition [facility] [address] [place], [place] [phone] Allison Barros, ANUSHA [address] [place], [place] [phone] Health Maintenance Due Date Last Done Comments CT Colonography 1974 FIT DNA/Cologuard 1974 FIT 1975 FOBT 1975 HIV Screening 1975 Sigmoidoscopy 1974 Alcohol/Substance Use Screening 1986 Family Planning (PISQ) 1989 COVID-19 Vaccine ( season) 2024 04/25/2021, 06/28/2020, 06/07/2020 Depression Screening 10/02/2024 10/03/2023, 10/03/19 24 SDOH Screening 10/02/2024 10/03/2023 Zoster Vaccines (1 of 2) 2024 Lipid Panel 02/20/2025 02/21/2020 Mammogram 06/11/2025 06/11/2024, 12/0 11/2022, 04/08/2023, Additional history exists Diabetes: Hemoglobin A1C 07/13/2025 07/13/2024 Tobacco Screening 07/23/2025 07/23/2024 Colonoscopy 06/15/2026 06/15/2021 Colorectal Cancer Screening 06/15/2026 Cervical Cancer Screening 02/08/2028 HPV/Cotest 02/08/2028 02/07/2023 Pap Smear 02/08/2028 02/07/2023 DTaP/Tdap/Td Vaccines (3 - Td or Tdap) 02/03/2029 02/03/2019, 03/11/2012, 02/20/2001 RSV Patients and Patients Aged 60 years or older (1 - 1-dose 75+ series) 2049 Hepatitis A Vaccines Aged Out 09/25/2011, 03/25/20 11 No longer eligible based on patient's age to complete this topic Hepatitis B Vaccines Completed 03/11/2012, 09/25/2011, 08/13/2011 Hepatitis C Screening Completed 08/16/2021, 022 Influenza Vaccine Completed 03/22/2024, , 04/18/2022, Additional history exists Pneumococcal Vaccine: Pediatrics (0 to 5 Years) and At-Risk Patients (6 to 49) Years) Completed 07/13/2024, 02/20/2001 HIB Vaccines Aged Out No longer eligi ble based on patient's age to complete this topic HPV Vaccines Aged Out No longer eligi ble based on patient's age to complete this topic IPV Vaccines Aged Out No longer eligi ble based on patient's age to complete this topic Meningococcal Vaccine Aged Out No mp pete eligible based on patient's age to complete this topic RSV under 20 months Aged Out No longe r eligible based on patient's age to complete this topic Rotavirus Vaccines Aged Out No longer eligible based on patient's age to complete this topic Procedures Procedure Name Priority Date/Time Associated Diagnosis Comments MD ARTHROCENTESIS ASPIR&/INJ MAJOR JT/BURSA W/O US Routine 08/10/2024 11:38 AM EST Chronic right shoulder pain POCT GLYCATED HEMOGLOBIN, TOTAL Routine 07/13/2024 11:10 AM EST Class 1 obesity due to excess calories without serious comorbidity with body mass index (BMI) of 31.0 to 31.9 in adult POCT GLUCOSE Routine 07/13/2024 11:06 AM EST Class 1 obesity due to excess calories without serious comorbidity with body mass index (BMI) of 31.0 to 31.9 in adult BI MAMMOGRAM SCREENING TOMOSYNTHESIS BILATERAL Routine 06/11/2024 3:00 PM EST HM PAP/HPV Routine 02/07/2023 ZZZ HISTORICAL HEPATITIS A,B,C PROFILE Routine 08/16/2021 9:44 AM EST HM COLONOSCOPY Routine 06/15/2021 LIPID PANEL, STANDARD Routine 02/21/2020 9:56 AM EDT from Last 3 Months or Most Recently Relevant to Health Maintenance Results * MD ARTHROCENTESIS ASPIR&/INJ MAJOR JT/BURSA W/O US (08/10/2024 11:38 AM EST) Alissa Monroe MD - 08/10/2024 11:38 AM EST Alissa Rodriguez MD ? 08/10/2024 11:48 AM Arthrocentesis Date/Time: 08/10/2024 11:38 AM Performed by: Alissa Rodriguez MD Authorized by: Alissa Rodriguez MD ?? Consent: ??Consent obtained: ??Verbal and written ??Consent given by: ??Patient ??Risks, benefits, and alternatives were discussed: yes ?Risks discussed: ??Pain ??Alternatives discussed: ??Referral [place] protocol: ??Procedure explained and questions answered to [...] MD IN CLINIC/BEDSIDE ORDERABLES Fin al Result * POCT HGB A1C (07/13/2024 11:10 AM EST) Hemoglobin A1C 5.7 4.0 - 6.0 % QC Media Lot # [id number] Lot# Expiration Date [id number] Blood 07/13/2024 11:1 0 AM EST Aditi Matias MD POINT OF CARE TEST ENTER /EDIT ORDERABLES Final Result * POCT Glucose (07/13/2024 11:06 AM EST) Glucose Blood, POC 97 60 - 200 mg/dL QC Media Lot # [id number] Lot# Expiration Date [id number] Blood Capillary blood specimen / Unknown 07/13/2024 11:06 AM EST Aditi Matias MD POINT OF CARE TEST ENTER /EDIT ORDERABLES Final Result * BI Mammogram Screening Tomosynthesis Bilateral (06/11/2024 3:00 PM EST) Anatomical Region Laterality Modality Breast Bilateral Mammography 06/11/2024 3:00 PM EST Narrative 06/20/2024 10:18 AM EST ? [facility] ? [address] ?[place] [id number] ? Mammography Report ? Signed ? Patient: Rivero,Joan ?MR#: [id number] ?? 5 ? : 1975 ?Acct:[id number] ? Age/Sex: 48 / F ?ADM Date: 01/03/25 ? Loc: HO.MAMMO ? Attending Dr: Aditi Matias MD ? Ordering Physician: Aditi Matias MD ?Results: 1Ne ?? gative ? Date of Service: 06/11/24 ?Follow Up: 1 Year From Orig ?? inal Mammogram ? Procedure(s): MM tomosynthesis screening BI ?? Accession Number(s): [id number] ? cc: Aditi Matias MD ? EXAMINATION: ?? MM SCREENING DIGITAL BREAST TOMOSYNTHESIS, BILATERAL ? CLINICAL INFORMATION: ? Screening. Asymptomatic. ? COMPARISON: ?? Mammography: Comparison is made with available priors ? TECHNIQUE: ?? Digital breast mammography with tomosynthesis is performed in both the ?? craniocaudal and mediolateral oblique views along with computer-aided ?? detection (CAD). ? FINDINGS: ?? There are scattered areas of fibroglandular density (ACR BI-RADS breast ?? composition Category b). ? There are no significant masses, abnormal calcifications, or other ?? abnormalities. ? MM/MM tomosynthesis screening BI ?? IMPRESSION: ?? No mammographic evidence of malignancy. ? ASSESSMENT: ? BI-RADS BI-RADS 1 - Negative ? RECOMMENDATION: ?? Routine annual mammography screening. ? 1 year F/U ? This examination should not preclude the clinical evaluation of a ?? suspicious palpable abnormality. ? This patient's information was entered into a reminder system with a ?? target due date for their next mammogram. ? Electronically signed by: ??Keri Figueroa DO ??06/20/2024 10:15 AM EST ?? RP ? Dictated By: ?Keri Figueroa DO ? Signed By: ?<Electronically signed by Keri Figueroa, DO in OV> ? 06/20/24 1015 ? DD/ 1500 ? TD/TT: 06/11/24 1514 ? Incinerator Attendant: ? Procedure Note Donotuseinterpreter, Image - 06/20/2024 [facility] [address] [place] [address] Mammography Report Signed Patient: Delia Rivero#: [id number] 5 : 1975Acct:[id number] Age/Sex: 48 / FADM Date: 06/11/24 Loc: HO.MAMMO Attending Dr: Aditi Matias MD Ordering Physician: Aditi Matias MDResults: 1Ne gative Date of Service: 06/11/24Follow Up: 1 Year From Orig inal Mammogram Procedure(s): MM tomosynthesis screening BI Accession Number(s): [id number] cc: Aditi Matias MD EXAMINATION: MM SCREENING DIGITAL BREAST TOMOSYNTHESIS, BILATERAL CLINICAL INFORMATION: Screening. Asymptomatic. COMPARISON: Mammography: Comparison is made with available priors TECHNIQUE: Digital breast mammography with tomosynthesis is performed in both the craniocaudal and mediolateral oblique views along with computer-aided detection (CAD). FINDINGS: There are scattered areas of fibroglandular density (ACR BI-RADS breast composition Category b). There are no significant masses, abnormal calcifications, or other abnormalities. MM/MM tomosynthesis screening BI IMPRESSION: No mammographic evidence of malignancy. ASSESSMENT: BI-RADS BI-RADS 1 - Negative RECOMMENDATION: Routine annual mammography screening. 1 year F/U This examination should not preclude the clinical evaluation of a suspicious palpable abnormality. This patient's information was entered into a reminder system with a target due date for their next mammogram. Electronically signed by: Keri Figueroa DO 06/20/2024 10:15 AM EST Dictated By: Keri Figueroa DO Signed By: <Electronically signed by Keri Figueroa DO in OV> 06/20/24 1015 DD/ 1500 TD/TT: 06/11/24 1514 Incinerator Attendant: Aidti Matias MD IMG BI PROCEDURES Final Result * Pap Smear (02/07/2023) Pathologist [facility] Pap Negative for intraephithelial lesion or malignancy Negative for intraephithelial lesion or malignancy, Other HPV Undetected Undetected, Indeterminate, Quantitative, Not Detected Historical Provider HEALTH MAINTENANCE Final Result * Hepatitis A,B,C Profile (08/16/2021 9:44 AM EST) [facility] Hepatitis B Core Antibody Nonreactive Nonreactive [facility] Hepatitis B Surface Antibody REACTIVE Nonreactive [facility] Comment:REACTIVE: > 11.99 mI U/mL Hepatitis B Surface Antigen Negative Negative [facility] Hepatitis C Antibody Nonreactive Nonreactive [facility] Comment: Antibodies to HCV not detected; does not exclude early acute HCV infection. 08/16/2021 9:44 AM EST Historical Provider HISTORICAL/NON ORDERABLE LABS Final Result [facility] [address] * (ABNORMAL) Colonoscopy (06/15/2021) [facility] Colonoscopy Abnormal( A) Normal Comment:Tubular adenoma 06/15/2021 Aditi Matias MD [facility] Final Result * (ABNORMAL) LIPID PANEL, STANDARD (02/21/2020 9:56 AM EDT) [facility] Triglycerides 96 <150 mg/dL [facility] Cholesterol, Total 189 <200 mg/dL [facility] Non-HDL Cholesterol 142(H) <130 mg/dL (calc) [facility] Comment: For patients with diabetes plus 1 major ASCVD risk ?? factor, treating to a non-HDL-C goal of <100 mg/dL ?? (LDL-C of <70 mg/dL) is considered a therapeutic ?? option. HDL Cholesterol 47(L) > OR = 50 mg/dL [facility] LDL Cholesterol 122(H) mg/dL (calc) [facility] Comment: Reference range: <100 ?? Desirable range <100 mg/dL for primary prevention; ?? <70 mg/dL for patients with CHD or diabetic patients ?? with > or = 2 CHD risk factors. ?? LDL-C is now calculated using the Lidia ?? calculation, which is a validated novel method providing ?? better accuracy than the Friedewald equation in the ?? estimation of LDL-C. ?? Tor BECKHAM et al. BETTY. 2013;310(19): 1442-0290 ?? (http://education.[employer]/faq/IPZ708) Chol/HDLC Ratio 4.0 <5.0 (calc) [facility] 02/21/2020 9:56 AM EDT Aditi Matias MD LAB BLOOD ORDERABLES Fin al Result [facility] [address] from Last 3 Months or Most Recently Relevant to Health Maintenance Insurance [employer] Care Teams Bulk Driver Relationship Specialty Start Date End Date Aditi Matias MD [address] [place] [phone] PCP - General Family Medicine 02/10/19
--- OUTSIDE RECORDS SUMMARY | 2024-08-17 08:37 | XMS_ITS | Encounter Summary ---
Author Organization [employer] Address [address] [facility] 7t [place] [address] Care Team Providers Care Carpet Tile Layer Name Role Phone Aditi Matias MD Primary Care Provider + Reason for Referral * Consultation (Routine) - Closed Specialty Diagnoses / Procedures Referred By Contphilly t Referred To Contact Physical Therapy Diagnoses Adhesive capsulitis of right shoulder Alissa Rodriguez MD [address] [place] [address] Phone: tel: fax: [facility] [place] [facility] [address] [place] [address] Phone: tel: fax: Referral ID Status Reason Start Date Expiration Date V isits Requested Visits Authorized [id number] Closed Specialty Services Required 07/23/2024 07/23/2025 1 1 Reason for Visit * Reason Comments Shoulder Pain Encounter Details Date Type Department Care Team (Late st Contact Info) Description 07/23/2024 9:40 AM EST Office Visit [facility] [address] [place] [address] Alissa Rodriguez MD [address] [place], [place] [phone] Adhesive capsulitis of right shoulder (Primary Dx) Social History Tobacco Use Types [...] Sign Reading Time Taken Comments Blood Pressure 137/79 07/23/2024 9:31 AM EST Pulse 69 07/23/2024 9:31 AM EST Temperature 36.6 ??C (97.9 ??F) 07/23/2024 9:31 AM ES T Respiratory Rate 17 07/23/2024 9:31 AM EST Oxygen Saturation - - Inhaled Oxygen Concentration - - Weight 86.2 kg (190 lb) 07/23/2024 9:31 AM EST Height 162.6 cm (5' 4 ) 07/23/2024 9:31 AM EST Body Mass Index 32.61 07/23/2024 9:31 AM EST documented in this encounter Progress Notes * Alissa Rodriguez MD - 07/23/2024 9:40 AM EST Subjective Patient ID: Joan Rivero is a 48 y.o. female who presents for Shoulder Pain. Shoulder Pain The pain is present in the right shoulder. This is a recurrent problem. The problem occurs constantly. The problem has been gradually worsening. The quality of the pain is described as aching and dull. The pain is at a severity of 8/10. The pain is moderate. Associated symptoms include an inabilityto bear weight, joint locking and a limited range of motion. She has tried acetaminophen for the symptoms. The treatment provided mild relief. Her past medical history is significant for diabetes andosteoarthritis. Review of Systems Objective Physical Exam Constitutional: Appearance: Normal appearance. Cardiovascular: Rate and Rhythm: Normal rate and regular rhythm. Pulses: Normal pulses. Heart sounds: Normal heart sounds. Pulmonary: Effort: Pulmonary effort is normal. Abdominal: General: Abdomen is flat. Musculoskeletal: Right shoulder: Tenderness and bony tenderness present. Decreased range of motion. Neurological: Mental Status: She is alert. Assessment/Plan Diagnoses and all orders for this visit: Adhesive capsulitis of right shoulder Comments: Started on Prednisone 40mg daily for 5 days and tramdol at night Pt scheduled for shoulder injection Referred to PT Orders: - traMADol (Ultram) 50 MG tablet; Take 1 tablet (50 mg) by mouth every 6 (six) hours if needed for severe pain for up to 5 days. - Referral to Physical Therapy; Future Other orders - predniSONE (Deltasone) 20 MG tablet; Take 2 tablets (40 mg) by mouth Once per day for 5 days. documented in this encounter Plan of Treatment Upcoming Encounters Date Type Department Care Team (Late st Contact Info) Description 08/30/2024 9:00 AM EDT Nutrition [facility] [address] [place] [address] [place] [address] Scheduled Referrals Name Type Priority Associated Diagnoses Orde r Schedule Referral to Physical Therapy Outpatient Referral Routine Adhesive capsulitis of right shoulder Expected: 07/23/2024 (Approximate), Expires: 07/23/2025 documented as of this encounter Visit Diagnoses Diagnosis Adhesive capsulitis of right shoulder- Primary documented in this encounter Care Teams Carpet Tile Layer Relationship Specialty Start Date End Date Aditi Matias MD [address] [place] [id number] PCP - General Family Medicine 02/10/19 documented as of this encounter
== END 2024-08-17 08:11 | disposition home or self-care (01) ==
LOC: HO.XRAY 08:10
PROVIDERS: PCP Internal Medicine; Visit Provider Nurse Practitioner Family
DX: K21.9 Gastro-esophageal reflux disease without esophagitis (principal)
CPT/HCPCS: 74240

== ENCOUNTER → 2024-08-17 08:12 | Outpatient (BNV) | payer OTHER, SELFPAY | PROVIDERS: PCP Internal Medicine; Visit Provider Radiology Diagnostic Radiology | DX: K21.9 Gastro-esophageal reflux disease without esophagitis (principal); K44.9 Diaphragmatic hernia without obstruction or gangrene | CPT/HCPCS: 74240 ==

== ENCOUNTER 2024-10-12 13:31 | Emergency (ER) | payer OTHER, SELFPAY ==
--- NOTE | ~2024-10-12 | US_ITS ---
EXAMINATION: US TRIPLEX LOWER EXTREMITY, LEFT CLINICAL INFORMATION: Pain and edema, left lower extremity. COMPARISON: None available. TECHNIQUE: Color-flow triplex imaging with spectral analysis and compression Doppler were performed on the left lower extremity. FINDINGS: Respiratory variation, normal compression and augmented flow are noted throughout the interrogated common femoral vein, superficial femoral vein, profunda femoral vein, popliteal vein and midcalf peroneal and posterior tibial venous segments. There is no Vu's cyst. US/US venous duplex LE LT IMPRESSION: No acute deep venous thrombosis involving the left lower extremity.. Negative for DVT. Electronically signed by: Dom Rabago MD 10/12/2024 03:44 PM EDT
[2024-10-12 13:59] VITALS: BP 128/67; PULSE 70; RESP 20; TEMP 37; O2SAT 100; BMI 31.9
--- NOTE | 2024-10-12 14:05 | ED_ITS ---
HPI - General Adult General Chief complaint: Extremity Injury, Lower Stated complaint: Blood clot? Sent by Time Seen by Provider: 10/12/24 15:54 History of Present Illness ED Provider: Greg Longoria MD HPI narrative: 48 yold female presents to the ED for posterior left knee pain since September. Patient was sent to the ED for urgent care to rule out DVT. Patient denies any chest pain, shortness of breath, fever, chills, nausea, vomitting, fever, chills, estrogen control use recent long travel, recent surgery Related Data Home Medications ?Medication ?Instructions ?Recorded ?Confirmed epinephrine 0.3 mg/0.3 mL 0.3 ml IM DIRECTED PRN Allergic 03/20/21 06/05/21 injection, auto-injector Reaction escitalopram oxalate 10 mg tablet 10 mg PO DAILY 08/16/21 diclofenac sodium 1 % topical gel g topical 10/22/21 fluticasone propionate 220 1 puff PO BID 10/22/21 mcg/actuation HFA aerosol inhaler (Flovent HFA) albuterol sulfate 90 mcg/actuation 2 puff PO Q4-6H PRN 01/01/22 aerosol inhaler cetirizine 10 mg tablet 10 mg PO DAILY 04/01/22 fluticasone propionate 50 1 spray intranasal BID 04/01/22 mcg/actuation nasal spray,suspension naproxen 500 mg tablet 500 mg PO BID 07/04/23 Previous Rx's ?Medication ?Instructions ?Recorded cholecalciferol (vitamin D3) 50 50 mcg PO DAILY #30 caps 09/04/21 mcg (2,000 unit) capsule albuterol sulfate 2.5 mg/3 mL 2.5 mg (3 mL) inhalation QID PRN 09/25/21 (0.083 %) solution for nebulization shortness of breath or wheezing #75 mL polyethylene glycol 3350 17 17 g PO DAILY #510 grams 07/02/22 gram/dose oral powder (Miralax) aluminum-mag hydroxide-simethicone 5 ml PO 5XD PRN dyspepsia #30 mL 07/29/22 200 mg-200 mg-20 mg/5 mL oral susp (Maalox Advanced) methocarbamol 500 mg tablet 500 mg PO BID PRN muscle spasm #60 10/21/22 tabs gabapentin 300 mg capsule 300 mg PO BEDTIME pain 30 days #30 11/14/22 caps lorazepam 0.5 mg tablet 0.5 mg PO ONCE PRN Anxiety #2 tabs 01/06/23 ondansetron 4 mg disintegrating 4 mg PO Q6-8H PRN nausea and 02/19/23 tablet vomiting #20 tabs bisacodyl 5 mg tablet,delayed 10 mg (2 x 5 mg) PO BEDTIME #60 01/20/24 release (Dulcolax (bisacodyl)) tabs famotidine 40 mg tablet 40 mg PO BEDTIME #90 tabs 01/20/24 lansoprazole 30 mg capsule,delayed 30 mg PO DAILY #30 caps 01/20/24 release naproxen 500 mg tablet 500 mg PO BID PRN pain #14 tabs 10/12/24 Allergies Allergy/AdvReac Type Severity Reaction Status Date / Time cinnamon Allergy Mild Anaphylaxis Verified 10/12/24 13:59 kiwi Allergy Anaphylaxis Verified 10/12/24 13:59 pineapple Allergy Anaphylaxis Verified 10/12/24 13:59 strawberry Allergy Anaphylaxis Verified 10/12/24 13:59 peaches Allergy Mild Anaphylaxis Uncoded 10/12/24 13:59 Review of Systems 2 Review of Systems: Left posterior knee calf pain Yes all other systems are reviewed and are negative PMFSH Past Medical History Medical History Back pain GERD (gastroesophageal reflux disease) COVID-19 vaccine administered Lab test negative for COVID-19 virus Asthma Anxiety Lipoma Pancreatitis Surgical History Hx of esophagogastroduodenoscopy Hx of colonoscopy History of carpal tunnel release (~06/22/20) Status post excision of lipoma Family History Family History Maternal Grandmother History of ovarian cancer Mother History of thyroid disease Social History Social History Alcohol intake: never Patient Tobacco Use Status: Never used Tobacco Advance Directives: No Advance Directives Information Provided: No Current occupational status: employed 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 Head: Yes normal to inspection, Yes No palpable skull fracture present, Yes normocephalic and Yes atraumatic Eyes General: appearance normal, both eyes and all related structures Neck Neck: Yes normal visual inspection, Yes full ROM, Yes no lymphadenopathy, Yes no meningeal signs, Yes trachea midline, Yes supple, No anterior neck swelling and No tender Chest Chest palpation & inspection: normal inspection of the chest and normal palpation of entire chest wall Resp Effort & Inspection: normal respiratory effort and able to speak in complete sentences Auscultation: clear to auscultation bilaterally Cardio Jugular venous distension: no JVD Heart sounds: S1 normal heart sound present and S2 normal heart sound present GI Inspection: Yes normal to inspection Palpation (GI): Soft to palpation, not firm, nontender, no guarding and not rigid General: Yes no CVA tenderness Back/Spine/Pelvis Back: no CVA tenderness and No back tenderness Skin General skin exam: no rashes or lesions noted, elasticity normal and turgor normal Neuro General: patient oriented x3, gait normal, tone normal, Normal light touch and pain sensation, no meningeal signs, no focal motor deficits and CN's II-XI intact bilaterally Extrem General: Yes normal to inspection, Yes full ROM and Yes capillary refill normal Knee images: 2 1. positive for tenderness on palpation. negative for erythema, ecchymosis, deformity, palpable lump, or stiffness. rest of extremity is normal. motor, neuro, and vascular exam is intact. Psych Appearance: grossly normal, well kempt and not disheveled Course Course Course Narrative: RME: 48-year-old female presents to ED for lump in left posterior knee since September. Patient has pain in the area. Patient was sent from urgent care to rule out DVT. Patient denies any chest pain or shortness of breath. Patient denies any recent trauma. Physical exam negative for any obvious lump behind posterior knee or any swelling of leg knee or calf. Patient is sent for ultrasound. Medical Decision Making Medical Decision Making MDM Narrative: 48-year-old female sent from urgent care to rule out DVT due to pain left posterior knee and sensation of a lump. Patient denies any anterior knee pain, leg swelling, calf pain, chest pain or shortness of breath. Ultrasound negative for DVT or Vu's cyst. Physical exam negative for signs of compartment syndrome, fracture, arterial occlusion, cellulitis, osteomyelitis, lymphangitis, septic joint, gout, or any other life threatening etiologies. Patient explained worrisome signs and informed to follow up with primary care provider. Differential Diagnosis Differential Diagnoses: The differential diagnosis associated with the presentation includes (DVT Vu's cyst) Admission/Observation Consideration of admission/observation: Escalation of care including admission/observation considered Independent Interpretation I performed an independent interpretation of an: Ultrasound Radiology Impression Discussion of test interpretation with radiology: I have reviewed the radiologist's reading. Independent Historian Clinical information obtained from an independent historian. History obtained from or confirmed by: Other (Patient is) Prescription Management I considered prescription management with: Pain Medication Discharge Plan Discharge Clinical Impression: Posterior knee pain, Leg pain Patient Disposition: Home, Self-Care Instructions: Knee Pain (ED), Leg Pain (ED) Additional Instructions: Recommend follow-up with primary care provider. Return to the ED immediately for any knee swelling/leg swelling, calf pain, coughing up blood, chest pain, shortness of breath, fever, chills, redness, bluish black discoloration, or any other concerning symptoms. EXAMINATION: US TRIPLEX LOWER EXTREMITY, LEFT CLINICAL INFORMATION: Pain and edema, left lower extremity. COMPARISON: None available. TECHNIQUE: Color-flow triplex imaging with spectral analysis and compression Doppler were performed on the left lower extremity. FINDINGS: Respiratory variation, normal compression and augmented flow are noted throughout the interrogated common femoral vein, superficial femoral vein, profunda femoral vein, popliteal vein and midcalf peroneal and posterior tibial venous segments. There is no Vu's cyst. US/US venous duplex LE IMPRESSION: No acute deep venous thrombosis involving the left lower extremity.. Negative for DVT. Electronically signed by: Dom Rabago MD 10/12/2024 03:44 PM EDT RP Prescriptions: New naproxen 500 mg tablet 500 mg PO BID PRN (Reason: pain) Qty: 14 0RF No Action cholecalciferol (vitamin D3) 50 mcg (2,000 unit) capsule 50 mcg PO DAILY Qty: 30 3RF lorazepam 0.5 mg tablet 0.5 mg PO ONCE PRN (Reason: Anxiety) Qty: 2 0RF Rx Instructions: take one tab 1 hour before MRI. May take second tab on arrival to MRI rescheduled 01/07/23 alum-mag hydroxide-simeth [Maalox Advanced] 200-200-20 mg/5 mL suspension 5 ml PO 5XD PRN (Reason: dyspepsia) Qty: 30 0RF Rx Instructions: administer between meals and at bedtime albuterol sulfate 2.5 mg /3 mL (0.083 %) solution for nebulization 2.5 mg inhalation QID PRN (Reason: shortness of breath or wheezing) Qty: 75 0RF ondansetron 4 mg tablet,disintegrating 4 mg PO Q6-8H PRN (Reason: nausea and vomiting) Qty: 20 0RF epinephrine 0.3 mg/0.3 mL auto-injector 0.3 ml IM DIRECTED PRN (Reason: Allergic Reaction) albuterol sulfate 90 mcg/actuation HFA aerosol inhaler 2 puff PO Q4-6H PRN escitalopram oxalate 10 mg tablet 10 mg PO DAILY Flovent HFA 220 mcg/actuation HFA aerosol inhaler 1 puff PO BID diclofenac sodium 1 % gel topical fluticasone propionate 50 mcg/actuation spray,suspension 1 spray intranasal BID cetirizine 10 mg tablet 10 mg PO DAILY polyethylene glycol 3350 [Miralax] 17 gram/dose powder 17 g PO DAILY Qty: 510 2RF methocarbamol 500 mg tablet 500 mg PO BID PRN (Reason: muscle spasm) Qty: 60 0RF naproxen 500 mg tablet 500 mg PO BID bisacodyl [Dulcolax (bisacodyl)] 5 mg tablet,delayed release (DR/EC) 10 mg PO BEDTIME Qty: 60 4RF famotidine 40 mg tablet 40 mg PO BEDTIME Qty: 90 3RF lansoprazole 30 mg capsule,delayed release(DR/EC) 30 mg PO DAILY Qty: 30 3RF gabapentin 300 mg capsule 300 mg PO BEDTIME 30 Days Qty: 30 0RF Stand Alone Forms: Work/School Release Interventions: ED Discharge Assessment Last Done: 10/12/24 16:32 Discharge Date/Time: 10/12/24 16:33 Print Language: Brazilian
[2024-10-12 15:51] VITALS: BP 126/46; PULSE 63; RESP 16; TEMP 35.5; O2SAT 98
[2024-10-12 16:32] VITALS: BP 126/46; PULSE 63; RESP 16; TEMP 36.7; O2SAT 98
--- OUTSIDE RECORDS SUMMARY | 2024-10-12 17:06 | XMS_ITS | Encounter Summary ---
Author Organization [employer] [employer] [employer] Address [address] [facility] [address] [place] [address] Care Team Providers Care Bioinformaticist Name Role Phone Aditi Matias MD Primary Care Provider + Encounter Details Date Type Department Care Team (Late st Contact Info) Description 05/22/2022 Orders Only [facility] [address] [place] [address] Rachel Ochoa LPN Social History Tobacco Use [...] Care Team (Late st Contact Info) Description 01/12/2025 10:00 AM EDT Office Visit [facility] [address] [place] [address] Aditi Matias MD [address] [place] [address] documented as of this encounter Visit Diagnoses Not on filedocumented in this encounter Care Teams Bioinformaticist Relationship Specialty Start Date End Date Aditi Matias MD [address] [place] [address] PCP - General Family Medicine 02/10/19 documented as of this encounter
--- OUTSIDE RECORDS SUMMARY | 2024-10-12 17:06 | XMS_ITS | Encounter Summary ---
Author Organization [employer] Address [address] [facility] 7t [place] [address] Care Team Providers Care Senior Formulation Scientist Name Role Phone Aditi Matias MD Primary Care Provider + Encounter Details Date Type Department Care Team (Late st Contact Info) Description 06/28/2022 Telephone [facility] [address] [place] [address] [phone] Aditi Matias MD [address] [place] [address] [phone] Social History Tobacco Use Types Packs/Day Years [...] Description 01/12/2025 10:00 AM EDT Office Visit [facility] [address] [place] [address] [phone] Aditi Matias MD [address] [place] [address] [phone] documented as of this encounter Visit Diagnoses Not on filedocumented in this encounter Care Teams Senior Formulation Scientist Relationship Specialty Start Date End Date Aditi Matias MD [address] [place] [phone] PCP - General Family Medicine 02/10/19 documented as of this encounter
--- OUTSIDE RECORDS SUMMARY | 2024-10-12 17:06 | XMS_ITS | Encounter Summary ---
Author Organization [employer] Address [address] [facility] 7[address] [place] [address] Care Team Providers Care Bar Pilot Name Role Phone Aditi Matias MD Primary Care Provider + Reason for Visit * Reason Onset Date Comments January recall 10/12/2024 Encounter Details Date Type Department Care Team ([facility] st Contact Info) Description 10/12/2024 Telephone [facility] [address] [place], [place] [phone] Aditi Matias MD [address] [place], [place] [phone] January recall Social History Tobacco Use Types Packs/Day Years Used Date Smoking Tobacco: Never Smokeless Tobacco: Never Alcohol Use Standard Drinks/Week Comments Not Currently 0 (1 standard drink = 0.6 oz pur e alcohol) [facility] Housing Stability Answer Date Recorded What is your housing situation today? I have radhadameon dyson 10/03/[address] you [...] the past 12 months, has t he [employer], gas, oil or water company threatened to [...] encounter Miscellaneous Notes * Telephone Encounter - Lexis Marcus MA - 10/12/2024 1:43 PM EDT Telephone call to patient to schedule the following recall: Visit type: Follow up Appointment notes: fu MDD Patient agree to appointment on 01/12/25 at 10:00 AM with Polly. documented in this encounter Plan of Treatment Upcoming Encounters Date Type Department Care Team (Late st Contact Info) Description 01/12/2025 10:00 AM EDT Office Visit [facility] [address] [place] [address] Aditi Matias MD [address] [place] [address] documented as of this encounter Visit Diagnoses Not on filedocumented in this encounter Care Teams Bar Pilot Relationship Specialty Start Date End Date Aditi Matias MD [address] [place] [phone] PCP - General Family Medicine 02/10/19 documented as of this encounter
--- OUTSIDE RECORDS SUMMARY | 2024-10-12 17:06 | XMS_ITS | Clinical Summary ---
Author Organization [employer] Address [address] [place] [address] 7[address] [place] [address] Care Team Providers Care Warp Clamper Name Role Phone Aditi Matias MD Primary Care Provider + Allergies Active Allergy Reactions Criticality Noted Date Comments Lampasas Oil Anaphylaxis High 03/05/2021 Chicken Allergy 04/05/2013 Other reaction(s): hives Cinnamon 09/17/2022 Kiwi Extract 09/17/2022 Cross Flavoring Agent (Non-Screening) 09/17/2022 Pineapple Anaphylaxis High 03/05/2021 Pineapple Extract 05/16/2021 [place] Extract Anaphylaxis High 04/05/2013 Other reaction(s): WHEEZING [...] AM 13 g 6 12/03/19 24 Active cyclobenzaprine (Flexeril) 5 MG tabletIndicatio ns:Neck strain, initial encounter Take 1 tablet (5 mg) by mouth if needed in the morning, at noon, and at bedtime for muscle spasms for up to [address]IVE OR OPERATE HEAVY MACHINERY WHILE ON THIS MEDICATION 20 tablet 01/15/20 24 Active albuterol (2.5 MG/3ML) 0.083% nebulizer solutionIndicat ions:Influenza A Take 3 mL (2.5 mg) by nebulization every 6 (six) hours if needed for wheezing or shortness of breath. 75 mL 1 01/21/20 24 2024 Active escitalopram (Lexapro) 5 MG tablet Take 1 tablet (5 mg) by mouth Once per day. 90 tablet 2 04/09/20 24 2024 Active fluticasone (Flonase) 50 MCG/ACT nasal spray Administer 1 spray into each nostril Once per day. 16 g 3 07/13/19 25 Active LORazepam (Ativan) 0.5 MG tabletIndicatio ns:Anxiety Take 1 tablet (0.5 mg) by mouth 1 (one) time if needed for anxiety for up to 2 doses. Take one tablet 1-2 hours before flights 2 tablet 09/09/19 25 Active albuterol 108 (90 Base) MCG/ACT inhalerIndicati ons:Mild intermittent asthma without complication INHALE TWO PUFFS INTO THE LUNGS EVERY FOUR TO SIX HOURS NEEDED 20.1 g 1 10/06/19 25 Active albuterol 108 (90 Base) MCG/ACT inhalerIndicati ons:Mild intermittent asthma without complication INHALE 2 PUFFS BY MOUTH EVERY 4 TO 6 HOURS NEEDED 25.5 g 3 12/03/19 24 2024 Discontinued Active Problems Problem Noted Date Diagnosed Date [...] of moderate intensity exercise. Refer to nutrition [facility] Will check RBS and A1c due to [...] are persistent she will need to call SHAMPOO ASSISTANT for further eval reassurance most likely related [...] Encounters Date Type Department Care Team Description 10/12/2024 Telephone [facility] MEDICINE [address] [place] [address] Aditi Matias MD January10/12/2024 Telephone [facility] MEDICINE [address] [place] [address] Aditi Matias MD 10/04/2024 Refill [facility] MEDICINE [address] [place] [address] Aditi Matias MD Mild intermittent asthma without complication 09/24/2024 2:00 PM EDT Clinical Support [facility] DIABETES/NUTRITION [address] [place], [place] [phone] Allison Barros, ANUSHA Class 1 obesity due to excess calories without serious comorbidity with body mass index (BMI) of 31.0 to 31.9 in adult (Primary Dx) 09/24/2024 Travel 09/13/2024 Orders Only [facility] MEDICINE [address] [place] [phone] Kimberly Bello NP Left lateral ankle pain (Primary Dx); Acute pain of left knee 09/13/2024 Telephone [facility] MEDICINE [address] [place] [address] Aditi Matias MD Request For Order(s) 09/08/2024 3:00 PM EDT Office Visit [facility] [address] [address] Kimberly Bello NP Acute pain of left knee (Primary Dx) 09/08/2024 Refill [facility] MEDICINE [address] [place] [address] Nohemi Garcia, MALLORY Anxiety 09/08/2024 Refill [facility] MEDICINE [address] [place] [address] Aditi Matias MD Anxiety 08/30/2024 9:00 AM EDT Nutrition [facility] DIABETES/NUTRITION [address] [place] [address] Class 1 obesity due to excess calories without serious comorbidity with body mass index (BMI) of 31.0 to 31.9 in adult; At risk of diabetes mellitus 08/30/2024 Travel 08/17/2024 Orders Only [facility] External Provider, [facility] 08/10/2024 11:30 AM EST Procedure Visit [facility] [address] [place] [address] Alissa Rodriguez MD Chronic right shoulder pain (Primary Dx) 08/10/2024 Travel 07/23/2024 9:40 AM EST Office Visit [facility] [address] [address] Alissa Rodriguez MD Adhesive capsulitis of right shoulder (Primary Dx) 07/23/2024 Telephone [facility] [address] [place], [place] [phone] Aditi Matias MD TC/ Joint injectio from Last 3 Months Immunizations Name Administration [...] Sign Reading Time Taken Comments Blood Pressure 135/79 09/08/2024 3:22 PM EDT Pulse 73 09/08/2024 3:22 PM EDT Temperature 36.6 ??C (97.8 ??F) 09/08/2024 3:22 PM ED T Respiratory Rate 16 09/08/2024 3:22 PM EDT Oxygen Saturation 100% 09/08/2024 3:22 PM EDT Inhaled Oxygen Concentration - - Weight 84.4 kg (186 lb) 09/08/2024 3:22 PM EDT Height 162.6 cm (5' 4 ) 08/31/2024 10:56 AM EDT Body Mass Index 31.93 08/31/2024 10:56 AM EDT Plan of Treatment Upcoming Encounters Date Type Department Care Team (Late st Contact Info) Description 01/12/2025 10:00 AM EDT Office Visit [facility] MEDICINE [address] [place] [address] Aditi Matias MD [address] [place] [address] Health Maintenance Due Date Last Done Comments [...] Diabetes: Hemoglobin A1C 07/13/2025 07/13/2024 Tobacco Screening 09/09/2025 09/09/2024 Colonoscopy 06/15/2026 06/15/2021 Colorectal Cancer Screening 06/15/2026 [...] Procedure Name Priority Date/Time Associated Diagnosis Comments US VENOUS DUPLEX LE LT Routine 2:58 PM EDT FL UPPER GI W BARIUM SWALLOW Routine 08/17/2024 8:12 AM EDT AL ARTHROCENTESIS ASPIR&/INJ MAJOR JT/BURSA W/O US Routine [...] Recently Relevant to Health Maintenance Results * US VENOUS DUPLEX LE LT (10/12/2024 2:58 PM EDT) Anatomical Region Laterality Modality Abdomen Ultrasound 10/12/2024 2:58 PM EDT Narrative 10/12/2024 3:47 PM EDT ? [facility] ?[address] ?[place] [address] ? Ultrasound Report ? Signed ? Patient: Debi Riverolyn ?MR#: [id number] ?? 5 ? : 1975 ?Acct:[id number] ? Age/Sex: 48 / F ?ADM Date: 10/12/24 ? Loc: HO.ED ? Attending Dr: ? Ordering Physician: Daron Gardner ?? Date of Service: 10/12/24 ?? Procedure(s): US venous duplex LE LT ?? Accession Number(s): [id number] ? cc: Daron aGrdner; Aditi Matias MD ? EXAMINATION: ?? US TRIPLEX LOWER EXTREMITY, LEFT ? CLINICAL INFORMATION: ?? Pain and edema, left lower extremity. ? COMPARISON: ?? None available. ? TECHNIQUE: ?? Color-flow triplex imaging with spectral analysis and compression ?? Doppler were performed on the left lower extremity. ? FINDINGS: ?? Respiratory variation, normal compression and augmented flow are noted ?? throughout the interrogated common femoral vein, superficial femoral ?? vein, profunda femoral vein, popliteal vein and midcalf peroneal and ?? posterior tibial venous segments. ? There is no Vu's cyst. ? US/US venous duplex LE LT ?? IMPRESSION: ?? No acute deep venous thrombosis involving the left lower extremity.. ?? Negative for DVT. ? Electronically signed by: ??Dom Rabago MD ??10/12/2024 03:44 PM ?? EDT RP ? Dictated By: ?Dom Echevarria MD ? Signed By: ?<Electronically signed by Dom Clements MD in OV> ? 10/12/24 1544 ? DD/ 1458 ? TD/TT: 10/12/24 1525 ? Housecalls Nurse: ? Procedure Note Sujey, Image - 10/12/2024 [place] [address] Ultrasound Report Signed Patient: Delia Rivero#: [id number] 5 : 1975Acct:[id number] Age/Sex: 48 / FADM Date: 10/12/24 Loc: HO.ED Attending Dr: Ordering Physician: Daron Gardner Date of Service: 10/12/24 Procedure(s): US venous duplex LE LT Accession Number(s): [id number] cc: Daron Gardner; Aditi Matias MD EXAMINATION: US TRIPLEX LOWER EXTREMITY, LEFT CLINICAL INFORMATION: Pain and edema, left lower extremity. COMPARISON: None available. TECHNIQUE: Color-flow triplex imaging with spectral analysis and compression Doppler were performed on the left lower extremity. FINDINGS: Respiratory variation, normal compression and augmented flow are noted throughout the interrogated common femoral vein, superficial femoral vein, profunda femoral vein, popliteal vein and midcalf peroneal and posterior tibial venous segments. There is no Vu's cyst. US/US venous duplex LE LT IMPRESSION: No acute deep venous thrombosis involving the left lower extremity.. Negative for DVT. Electronically signed by: Dom Rabago MD 10/12/2024 03:44 PM EDT RP Dictated By: Dom Echevarria MD Signed By: <Electronically signed by Dom Clements MDin OV> 10/12/24 1544 DD/ 1458 TD/TT: 10/12/24 1525 Housecalls Nurse: [facility] External Provider IMG US PROCEDURES Final Result * FL Upper GI w/Barium Swallow (08/17/2024 8:12 AM EDT) Anatomical Region Laterality Modality Body Radiographic Kimberly ging 08/17/2024 8:12 AM EDT Narrative 08/17/2024 9:26 AM EDT ? [facility] ?[address] ?[place] [address] ? Fluoroscopy Report ? Signed ? Patient: Joan Rivero ?MR#: [id number] ?? 5 ? : 1975 ?Acct:[id number] ? Age/Sex: 48 / F ?ADM Date: 08/17/24 ? Loc: HO.XRAY ? Attending Dr: Macey CABRERA ? Ordering Physician: Macey Hammonds ?? Date of Service: 08/17/24 ?? Procedure(s): FL upper GI w Ba Swallow ?? Accession Number(s): [id number] ? cc: Aditi Matias MD; Macey Hammonds ? EXAMINATION: ?? XR GI SERIES ? CLINICAL INFORMATION: ?? Gastroesophageal reflux disease without esophagitis ? COMPARISON: ?? None available. ? TECHNIQUE: ?? Routine upper GI barium swallow study was performed in upright and ?? lying position. ? FINDINGS: ?? Following oral administration of thick barium and and barium coated ?? solids and cracker is a solid food and upright view there is normal ?? propagation bolus from the oral cavity through the pharynx, esophagus ?? into stomach without any evidence of obstruction, narrowing or ?? stricture. ? On placing patient in supine and prone lying the course, caliber and ?? peristalsis of the esophagus and stomach is normal. ??There is mild ?? gastroesophageal reflux without hiatal hernia. The mucosal pattern of ?? esophagus, stomach and the duodenum is normal. ? FLUOROSCOPY TIME: ?? 2 minutes 22 seconds ? DOSE AREA PRODUCT: ?? 1284 uGy-m2 (microgray-meter squared) ? FL/FL upper GI w Ba Swallow ?? IMPRESSION: ?? Mild gastroesophageal reflux without hiatal hernia. Otherwise ?? unremarkable upper GI air contrast study and barium swallow. ? Electronically signed by: ??Raymundo Peck MD ??08/17/2024 09:23 AM EDT RP ? Dictated By: ?Raymundo Peck MD ? Signed By: ?<Electronically signed by Raymundo Peck MD in OV> ?08/17/24 0923 ? DD/ 0812 ? TD/TT: 08/17/24 0835 ? Housecalls Nurse: BAUDILIO ? Procedure Note Donotmaximoter, Image - 08/17/2024 [place] [address] Fluoroscopy Report Signed Patient: Delia Rivero#: [id number] 5 : 1975Acct:[id number] Age/Sex: 48 / FADM Date: 08/17/24 Loc: PETRONA Attending Dr: Macey CABRERA Ordering Physician: Macey Hammonds Date of Service: 08/17/24 Procedure(s): FL upper GI w Ba Swallow Accession Number(s): [id number] cc: Aditi Matias MD; Macey Hammonds EXAMINATION: XR GI SERIES CLINICAL INFORMATION: Gastroesophageal reflux disease without esophagitis COMPARISON: None available. TECHNIQUE: Routine upper GI barium swallow study was performed in upright and lying position. FINDINGS: Following oral administration of thick barium and and barium coated solids and cracker is a solid food and upright view there is normal propagation bolus from the oral cavity through the pharynx, esophagus into stomach without any evidence of obstruction, narrowing or stricture. On placing patient in supine and prone lying the course, caliber and peristalsis of the esophagus and stomach is normal. There is mild gastroesophageal reflux without hiatal hernia. The mucosal pattern of esophagus, stomach and the duodenum is normal. FLUOROSCOPY TIME: 2 minutes 22 seconds DOSE AREA PRODUCT: 1284 uGy-m2 (microgray-meter squared) FL/FL upper GI w Ba Swallow IMPRESSION: Mild gastroesophageal reflux without hiatal hernia. Otherwise unremarkable upper GI air contrast study and barium swallow. Electronically signed by: Raymundo Peck MD 08/17/2024 09:23 AM EDT Dictated By: Raymundo Peck MD Signed By: <Electronically signed by Raymundo Peck MD in OV> 08/17/2423 DD/ 08 TD/TT: 08/17/24 0835 Housecalls Nurse: BAUDILIO [facility] External Provider IMG FLU OROSCOPY PROCEDURES Final Result * AL ARTHROCENTESIS ASPIR&/INJ MAJOR JT/BURSA W/O US (08/10/2024 11:38 AM EST) Alissa Monroe MD - 08/10/2024 11:38 AM EST Alissa Rodriguez MD ? 08/10/2024 11:48 AM Arthrocentesis Date/Time: 08/10/2024 11:38 AM Performed by: Alissa Rodriguez MD Authorized by: Alissa oRdriguez MD ?? Consent: ??Consent obtained: ??Verbal and written ??Consent given by: ??Patient ??Risks, benefits, and alternatives were discussed: yes ?Risks discussed: ??Pain ??Alternatives discussed: ??Referral Cadet protocol: ??Procedure explained and questions answered to [...] - 6.0 % QC Media Lot # [id number] Lot# Expiration Date [id number] Blood 07/13/2024 11:1 0 AM EST Aditi Matias MD POINT OF CARE TEST ENTER /EDIT ORDERABLES Final Result * BI Mammogram Screening Tomosynthesis Bilateral (06/11/2024 3:00 PM EST) Anatomical Region Laterality Modality Breast Bilateral Mammography 06/11/2024 3:00 PM EST Narrative 06/20/2024 10:18 AM EST ? [facility] [place] ? [address] ?[place] [address] ? Mammography Report ? Signed ? Patient: Joan Rivero ?MR#: [id number] ?? 5 ? : 1975 ?Acct:[id number] ? Age/Sex: 48 / F ?ADM Date: //25 ? Loc: HO.MAMMO ? Attending Dr: Aditi Matias MD ? Ordering Physician: Aditi Matias MD ?Results: 1Ne ?? gative ? Date of Service: 06/11/24 ?Follow Up: 1 Year From Orig ?? inal Mammogram ? Procedure(s): MM tomosynthesis screening BI ?? Accession Number(s): [id number] ? cc: Aditi Matias MD ? EXAMINATION: [...] DD/ 1500 ? TD/TT: 06/11/24 1514 ? Housecalls Nurse: ? Procedure Note Donotuseinterpreter, Image - [facility] [address] [place] [address] Mammography Report Signed Patient: Delia Rivero#: [id number] 5 : 1975Acct:[id number] Age/Sex: 48 / FADM Date: 06/11/24 Loc: HO.MAMMO Attending Dr: Aditi Matias MD Ordering Physician: Aditi Matias MDResults: 1Ne gative Date of Service: 06/11/24Follow Up: 1 Year From Orig inal Mammogram Procedure(s): MM tomosynthesis screening BI Accession Number(s): [id number] cc: Aditi Matias MD EXAMINATION: MM SCREENING [...] 06/20/24 1015 DD/ 1500 TD/TT: 06/11/24 1514 Housecalls Nurse: us Aditi Matias MD IMG BI PROCEDURES Final Result * Hm Pap Smear (02/07/2023) Pathologist [facility] Pap Negative for intraephithelial lesion or malignancy Negative for intraephithelial lesion or malignancy, Other HPV Undetected Undetected, Indeterminate, Quantitative, Not Detected Historical Provider HEALTH MAINTENANCE Final Result * Hepatitis A,B,C Profile (08/16/2021 9:44 AM EST) [facility] Hepatitis B Core Antibody Nonreactive Nonreactive [...] Historical Provider HISTORICAL/NON ORDERABLE LABS Final Result Performing Organization Address City/State/[facility] Co de Phone Number [facility] [address] * (ABNORMAL) Hm Colonoscopy (06/15/2021) [facility] Colonoscopy Abnormal( A) Normal Comment:Tubular adenoma 06/15/2021 Aditi Matias MD HEALTH MAINTENANCE Final Result * (ABNORMAL) LIPID PANEL, STANDARD (02/21/2020 9:56 AM EDT) [facility] Triglycerides 96 <150 mg/dL [facility] [...] ?? Tor BECKHAM et al. BETTY. 2013;310(19): 6539-1058 ?? (http://Anatexis.DoCircuits/faq/LDR800) Chol/HDLC Ratio 4.0 <5.0 (calc) [facility] 02/21/2020 9:56 AM EDT us Aditi Matias MD LAB BLOOD ORDERABLES Fin al Result [facility] [address] from Last 3 Months or Most Recently Relevant to Health Maintenance Insurance [employer] [place] [phone] Care Teams Warp Clamper Relationship Specialty Start Date End Date Aditi Matias MD [address] [place] [phone] PCP - General Family Medicine 02/10/19
--- OUTSIDE RECORDS SUMMARY | 2024-10-12 17:06 | XMS_ITS | Encounter Summary ---
Author Organization [employer] Address [address]t [place] [address] Care Team Providers Care Yarn Dyer Name Role Phone Aditi Matias MD Primary Care Provider + Reason for Visit * Reason Onset Date Comments Request For Order(s) 09/13/2024 Encounter Details Date Type Department Care Team ([facility] st Contact Info) Description 09/13/2024 Telephone [facility] MEDICINE [address] [place] [address] Aditi Matias MD [address] [place] [address] Request For Order(s) Social History Tobacco Use Types Packs/Day Years [...] encounter Miscellaneous Notes * Telephone Encounter - Mary Louis RN - 09/13/2024 2:11 PM EDT Noted. Thank you! * Telephone Encounter - Kimberly Bello NP - 09/13/2024 2:10 PM EDT Referral placed; referral team please see message above for PT location request. * Telephone Encounter - Andrew Early - 09/13/2024 10:25 AM EDT Tc from [facility] with [facility] requesting an order for physical therapy due to pt left leg pain. Ione will like order to be faxed over to [phone] (Attention Ione) documented in this encounter Plan of Treatment Upcoming Encounters Date Type Department Care Team (Late st Contact Info) Description 01/12/2025 10:00 AM EDT Office Visit [facility] MEDICINE [address] [place] [address] Aditi Matias MD [address] [place] [address] documented as of this encounter Visit Diagnoses Not on filedocumented in this encounter Care Teams Yarn Dyer Relationship Specialty Start Date End Date Aditi Matias MD [address] [place] [phone] PCP - General Family Medicine 02/10/19 documented as of this encounter
--- OUTSIDE RECORDS SUMMARY | 2024-10-12 17:06 | XMS_ITS | Encounter Summary ---
Author Organization [employer] Address [address] [facility] [address]t [place] [address] Care Team Providers Care Saddle And Harness Maker Name Role Phone Aditi Matias MD Primary Care Provider + Encounter Details Date Type Department Care Team ([facility] st Contact Info) Description 10/12/2024 Telephone [facility] MEDICINE [address] [place], [place] [phone] Aditi Matias MD [address] [place], [place] [phone] Social History Tobacco Use Types Packs/Day Years [...] encounter Miscellaneous Notes * Telephone Encounter - Lenore Henderson RN - 10/12/2024 11:11 AM EDT Called pt. RE: incoming pt. Portal message RE: knee pain. Pt. States that she is having left knee pain and has swelling under knee cap and all around knee cap. Pt. Went to Urgent care at [facility]- Xray of left knee was -Negative. Pt was given lidocaine patches and a brace. Pt. States she felt like her knee felt worse from brace due to constriction. Pt went to [facility] walk in because she had pa in and a lump on the back of her leg. Pt started PT last week but still has inflammation and a lumpbehind knee. Pt. Has tried Motrin and also Naproxen which has not helped. Lump is behind knee and is painful to touch. Pt. Can walk but if she walks too much her leg hurts. No redness on lump and no red streaks going down leg. Pt. Has pain with bending knee. No injury noted. I advised pt. To go to ED for further evaluation and possible US. Pt will go to [facility] ED. Protocol Used: Skin Lump or Localized Swelling (Adult) Protocol-Based Disposition: See in Office or Video Visit Today- Advised ED to get further testing on lump on back of knee. Video visit offer not recorded Positive Triage Questions: * Swelling is painful to touch and no fever * Small swelling or lump present > 1 week * Patient wants to be seen * All higher-acuity triage questions were negative documented in this encounter Plan of Treatment Upcoming Encounters Date Type Department Care Team (Late st Contact Info) Description 01/12/2025 10:00 AM EDT Office Visit [facility] MEDICINE [address] [place] [address] Aditi Matias MD [address] [place] [address] documented as of this encounter Visit Diagnoses Not on filedocumented in this encounter Care Teams Saddle And Harness Maker Relationship Specialty Start Date End Date Aditi Matias MD [address] [place] [address] PCP - General Family Medicine 02/10/19 documented as of this encounter
--- OUTSIDE RECORDS SUMMARY | 2024-10-12 17:06 | XMS_ITS | Encounter Summary ---
Author Organization [employer] Address [address] [facility] 7t [place] [address] Care Team Providers Care Sfdc Consultant Name Role Phone Aditi Matias MD Primary Care Provider + Encounter Details Date Type Department Care Team ([facility] st Contact Info) Description 02/17/2023 Telephone [facility] MEDICINE [address] [place], [place] [phone] Aditi Matias MD [address] [place], [place] [phone] Social History Tobacco Use Types Packs/Day Years [...] not better by Friday02/24/23 will come to [facility] to be seen by provider. Pt is [...] occurs - You become worse Joan [facility] Clinical Support (supporting Aditi Matias MD) 4 hours ago (9:50 AM) HORT[place] Diane, I tested positive for COVID on Friday at [facility]. I was reaching out to ask for some suggestion on how to manage some throat concerns I have. I throat is very soar and hard to swallow at time,I have been using Ware, honey, non caffeine tea. Cold beverages like [...] Description 01/12/2025 10:00 AM EDT Office Visit [facility] MEDICINE [address] [place] [address] Aditi Matias MD [address] [place] [address] documented as of this encounter Visit Diagnoses Not on filedocumented in this encounter Care Teams Sfdc Consultant Relationship Specialty Start Date End Date Aditi Matias MD [address] [place] [phone] PCP - General Family Medicine 02/10/19 documented as of this encounter
--- OUTSIDE RECORDS SUMMARY | 2024-10-12 17:06 | XMS_ITS | Clinical Summary ---
Author Organization [facility] Address [address] [place] [address] Care Team Providers Care Mannequin Coloring Artist Name Role Phone Unavailable Primary Care Provider Unavailabl e Social History Tobacco Use Types Packs/Day Years Used Date Smoking Tobacco: Never Assessed Sex and Gender Information Value Date Recorded Sex Assigned at Not on file Gender Identity Not on file Sexual Orientation Not on file Plan of Treatment Not on file
--- OUTSIDE RECORDS SUMMARY | 2024-10-12 17:06 | XMS_ITS | Encounter Summary ---
Author Organization [employer] Address [address] [facility] 7t [place] [address] Care Team Providers Care Voip Network Technician Name Role Phone Aditi Matias MD Primary Care Provider + Reason for Referral * Consultation (Routine) - Closed Specialty Diagnoses / Procedures Referred By Contphilly t Referred To Contact Physical Therapy Diagnoses Acute pain of left knee Kimberly Bello NP [address] [place] [address] Phone: tel: fax: [facility] [address] [place] [address] Phone: tel: fax: Referral ID Status Reason Start Date Expiration Date V isits Requested Visits Authorized [id number] Closed Specialty Services Required 09/13/2024 09/13/2025 1 1 Encounter Details Date Type Department Care Team (Late st Contact Info) Description 09/13/2024 Orders Only [facility] [address] [place] [address] Kimberly Bello NP [address] [place], [place] [phone] Left lateral ankle pain (Primary Dx); Acute pain of left knee Social History Tobacco Use Types Packs/Day Years [...] Description 01/12/2025 10:00 AM EDT Office Visit [facility] [address] [place] [phone] Aditi Matias MD [address] [place] [address] Scheduled Referrals Name Type Priority Associated Diagnoses Orde r Schedule Referral to Physical Therapy Outpatient Referral Routine Acute pain of left knee Expected: 09/13/2024 (Approximate), Expires: 09/13/2025 documented as of this encounter Procedures Procedure Name Priority Date/Time Associated Diagnosis Comments US VENOUS DUPLEX LE LT Routine 10/12/2024 2:58 PM EDT documented in this encounter Results * US VENOUS DUPLEX LE LT (10/12/2024 2:58 PM EDT) Anatomical Region Laterality Modality Abdomen Ultrasound 10/12/2024 2:58 PM EDT Narrative 10/12/2024 3:47 PM EDT ? [facility] ?[address] ?[place] [address] ? Ultrasound Report ? Signed ? Patient: Joan Rivero ?MR#: [id number] ?? 5 ? : 1975 ?Acct:[id number] ? Age/Sex: 48 / F ?ADM Date: 10/12/24 ? Loc: HO.ED ? Attending Dr: ? Ordering Physician: Daron Gardner ?? Date of Service: 10/12/24 ?? Procedure(s): US venous duplex LE LT ?? Accession Number(s): [id number] ? cc: Daron Gardner; Aditi Matias MD ? EXAMINATION: ?? US [...] ? There is no Vu's cyst. ? US/ venous duplex LE LT ?? IMPRESSION: ?? No acute deep venous thrombosis involving the left lower extremity.. ?? Negative for DVT. ? Electronically signed by: ??Dom Rabago MD ??10/12/2024 03:44 PM ?? EDT ? Dictated By: ?Dom Echevarria MD ? Signed By: ?<Electronically signed by Dom Clements MD in OV> ? 10/12/24 1544 ? DD/ 1458 ? TD/TT: 10/12/24 1525 ? [place]per: ? Procedure Note Meghann Rm - 10/12/2024 [address] [place] [address] Ultrasound Report Signed Patient: Debi RiveroDank#: [id number] 5 : 1975Acct:[id number] Age/Sex: 48 / FADM Date: 10/12/24 Loc: HO.ED Attending Dr: Ordering Physician: Daron Gardner Date of Service: 10/12/24 Procedure(s): US venous duplex LE LT Accession Number(s): [id number] cc: Daron Gardner; Aditi Matias MD EXAMINATION: [...] Dom Rabago MD 10/12/2024 03:44 PM EDT Dictated By: Dom Echevarria MD Signed By: <Electronically signed by Dom Clements MDin OV> 10/12/24 1544 DD/ 1458 TD/TT: 10/12/24 1525 Van [place]per: [facility] External Provider IMG US PROCEDURES Final Result documented in this encounter Visit Diagnoses Diagnosis Left lateral ankle pain- Primary Acute pain of left knee documented in this encounter Care Teams Voip Network Technician Relationship Specialty Start Date End Date Aditi Matias MD [address] [place] [phone] PCP - General Family Medicine 02/10/19 documented as of this encounter
== END 2024-10-12 16:33 | disposition home or self-care (01) ==
PROVIDERS: Emergency Provider Emergency Medicine Emergency Medical Services; PCP Internal Medicine
DX: M25.562 Pain in left knee (principal); M79.662 Pain in left lower leg
CPT/HCPCS: 93971; 99282; 99284

== ENCOUNTER → 2024-10-12 14:03 | Outpatient (BNV) | payer OTHER, SELFPAY | PROVIDERS: Emergency Provider Emergency Medicine Emergency Medical Services; PCP Internal Medicine; Visit Provider Radiology Diagnostic Radiology | DX: M79.662 Pain in left lower leg (principal); R22.42 Localized swelling, mass and lump, left lower limb | CPT/HCPCS: 93971 ==

== ENCOUNTER 2024-11-05 07:00 | Outpatient (RCR) | payer OTHER, SELFPAY | END 2024-12-16 13:19 | disposition home or self-care (01) | LOC: HO.PT 07:00 | PROVIDERS: PCP Internal Medicine; Visit Provider Nurse Practitioner | DX: M25.562 Pain in left knee (principal) | CPT/HCPCS: 97035; 97110; 97140; 97161; 97530 ==

== ENCOUNTER 2024-11-08 09:46 | Outpatient (REF) | payer OTHER, SELFPAY ==
--- NOTE | ~2024-11-08 | XR_ITS ---
EXAMINATION: XR KNEE 3 VIEWS LEFT HISTORY: M25.569 - Pain in unspecified knee COMPARISON: Comparison is made with the prior standing AP views of the knees dated 04/11/2022. FINDINGS: Standing AP views of both knees and additional lateral and sunrise patellar views of the left knee are submitted. Osseous mineralization is normal. There is no fracture or dislocation. The joint spaces are preserved. The soft tissues are unremarkable. There is no joint effusion. XR/XR knee LT 3V IMPRESSION: Unremarkable examination of the left knee. Electronically signed by: Fili Palmer MD 11/08/2024 03:56 PM EDT
--- OUTSIDE RECORDS SUMMARY | 2024-11-08 10:28 | XMS_ITS | Encounter Summary ---
Author Organization [employer] Address 75 [facility] 7t [place] [address] Care Team Providers Care Signal Circuit Designer Name Role Phone Aditi Matias MD Primary Care Provider + Encounter Details Date Type Department Care Team (Late st Contact Info) Description 06/28/2022 Telephone [facility] [address] [place] [address] [phone] Aditi Matias MD [address] [place] [address] [phone] Social History Tobacco Use Types Packs/Day Years [...] Description 01/12/2025 10:00 AM EDT Office Visit [facility] [address] [place] [address] [phone] Aditi Matias MD [address] [place] [address] [phone] documented as of this encounter Visit Diagnoses Not on filedocumented in this encounter Care Teams Signal Circuit Designer Relationship Specialty Start Date End Date Aditi Matias MD [address] [place] [phone] PCP - General Family Medicine 02/10/19 documented as of this encounter
== END 2024-11-08 09:47 | disposition home or self-care (01) ==
LOC: HO.HOSX 09:46
PROVIDERS: Visit Provider Physician Assistant
DX: M23.92 Unspecified internal derangement of left knee (principal)
CPT/HCPCS: 73562

== ENCOUNTER 2024-11-08 14:00 | Outpatient (AMB) | payer OTHER, SELFPAY ==
--- NOTE | 2024-11-08 14:11 | MHC.OFFVIS ---
Intake Visit Reasons: Newprob-Left knee pain Intake Note: Joan is a 48 year old female who presents today for a evaluation of her left knee pain. Patient reports ongoing pain since the end of August and it has gotten worse. She is going to [facility] physical therapy since September. Patient mentions that when she bends she feels some tension with some burning sensation. Her pain is on both medial and lateral aspect of the knee. She states that she had a lump behind her knee to rule out a DVT or a gtz cyst. Allergies cinnamon Allergy (Mild, Verified 11/08/24 14:20) Anaphylaxis kiwi Allergy (Verified 11/08/24 14:20) Anaphylaxis pineapple Allergy (Verified 11/08/24 14:20) Anaphylaxis strawberry Allergy (Verified 11/08/24 14:20) Anaphylaxis peaches Allergy (Mild, Uncoded 10/12/24 13:59) Anaphylaxis PFSH Medical History Back pain GERD (gastroesophageal reflux disease) COVID-19 vaccine administered Lab test negative for COVID-19 virus Asthma Anxiety Lipoma Pancreatitis Surgical History Hx of esophagogastroduodenoscopy Hx of colonoscopy History of carpal tunnel release (~06/22/20) Status post excision of lipoma Family History Maternal Grandmother History of ovarian cancer Mother History of thyroid disease Social History Alcohol intake: never Patient Tobacco Use Status: Never used Tobacco Current occupational status: employed 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 No tenderness to palpation along the medial or lateral joint lines. Tenderness along the IT band. Full knee extension and flexion. Negative Anil's. NVI. Assessment & Plan Assessment & Plan (1) Internal derangement of left knee: Code(s): M23.92 - Unspecified internal derangement of left knee Category: Medical Plan Joan is a 48 year old female who presents today for a evaluation of her left knee pain. Patient reports ongoing pain since the end of August and it has gotten worse. She is going to [facility] physical therapy since September. Patient mentions that when she bends she feels some tension with some burning sensation. Her pain is on both medial and lateral aspect of the knee. While in the office today, we discussed the role of continuation of physical therapy and the need for further imaging. The patient states that she has been in physical therapy for quite some time now and her pain continues. We have decided to order an MRI which will be performed at an open MRI to further evaluate the integrity of the left knee and surrounding structures. She will follow up after the MRIs obtained, sooner if needed. X-rays of the left knee which were obtained while in the office today and were reviewed by me, Graciela Lauren PA-C, revealed no acute fracture or dislocation. Orders: Orders MR knee LT wo con Today M23.92 - Unspecified internal derangement of left knee Coding Level of Care Code Est Pt Level 3 (97864) Diagnoses Internal derangement of left knee M23.92
== END 2024-11-08 14:33 | disposition home or self-care (01) ==
LOC: HO.HOS 14:01
PROVIDERS: PCP Internal Medicine; Visit Provider Physician Assistant
DX: M23.92 Unspecified internal derangement of left knee (principal)
CPT/HCPCS: 99213

== ENCOUNTER → 2024-11-08 14:05 | Outpatient (BNV) | payer OTHER, SELFPAY | PROVIDERS: Visit Provider Radiology Diagnostic Radiology | DX: M25.562 Pain in left knee (principal) | CPT/HCPCS: 73562 ==

== ENCOUNTER 2024-11-23 08:35 | Outpatient (REF) | payer OTHER, SELFPAY ==
--- OUTSIDE RECORDS SUMMARY | 2024-11-24 09:00 | XMS_ITS | Encounter Summary ---
Author Organization [employer] Address [address] [facility] 7t [place] [address] Care Team Providers Care President And Chief Commercial Officer Name Role Phone Aditi Matias MD Primary Care Provider + Encounter Details Date Type Department Care Team (Late Contact Info) Description 06/28/2022 Telephone [facility] [address] [place] [address] [phone] Aditi Matias MD [address] [place] [address] [phone] Social History Tobacco Use Types Packs/Day Years [...] Department Care Team (Late Contact Info) Description 01/12/2025 10:00 AM EDT Office Visit [facility] [address] [place] [address] [phone] Aditi Matias MD [address] [place] [address] [phone] documented as of this encounter Visit Diagnoses Not on filedocumented in this encounter Care Teams President And Chief Commercial Officer Relationship Specialty Start Date End Date Aditi Matias MD [address] [place] [phone] PCP - General Family Medicine 02/10/19 documented as of this encounter
== END 2024-11-23 08:36 | disposition home or self-care (01) ==
LOC: HO.HOSX 08:35
PROVIDERS: Visit Provider Physician Assistant
DX: Z13.89 Encounter for screening for other disorder (principal)

== ENCOUNTER 2024-11-23 11:29 | Outpatient (REF) | payer OTHER, SELFPAY | END 2024-11-23 11:30 | disposition home or self-care (01) | LOC: HO.HHCLNP 11:29 | PROVIDERS: Visit Provider Internal Medicine | DX: N30.90 Cystitis, unspecified without hematuria (principal) | CPT/HCPCS: 87086; 87088; 87186 ==

== ENCOUNTER 2024-12-15 12:58 | Outpatient (REF) | payer OTHER, SELFPAY ==
--- NOTE | ~2024-12-15 | XR_ITS ---
EXAMINATION: XR ELBOW 3 VIEWS LEFT HISTORY: b/l lateral elbow pain and swelling COMPARISON: There are no prior studies available for comparison. FINDINGS: Four views of the left elbow are submitted. Osseous mineralization is normal. There is no fracture or dislocation. The joint spaces are preserved. The soft tissues are unremarkable. There is no joint effusion. XR/XR elbow LT min 3V IMPRESSION: Unremarkable examination of the left elbow. Electronically signed by: Fili Palmer MD 12/15/2024 02:23 PM EDT
--- NOTE | ~2024-12-15 | XR_ITS ---
EXAMINATION: XR ELBOW 3 VIEWS RIGHT HISTORY: b/l lateral elbow pain and swelling COMPARISON: There are no prior studies available for comparison. FINDINGS: Four views of the right elbow are submitted. Osseous mineralization is normal. There is no fracture or dislocation. The joint spaces are preserved. The soft tissues are unremarkable. There is no joint effusion. XR/XR elbow RT min 3V IMPRESSION: Unremarkable examination of the right elbow. Electronically signed by: Fili Palmer MD 12/15/2024 02:24 PM EDT
--- OUTSIDE RECORDS SUMMARY | 2024-12-15 11:30 | XMS_ITS | Encounter Summary ---
Author Organization [employer] Address [address] [facility] 7 [place] [address] Care Team Providers Care Chair Maker Name Role Phone Aditi Matias MD Primary Care Provider + Reason for Referral * Consultation (STAT) - Pending Review Specialty Diagnoses / Procedures Referred By Benedicto mckeon Referred To Contact Orthopaedic Surgery Diagnoses Pain of both elbows Iwona Chaudhari DO [address] [place] [address] Phone: tel: fax: Referral ID Status Reason Start Date Expiration Date Visits Requested Visits Authorized [id number] Pending Review Specialty Services Required 12/15/2024 12/15/2025 1 1 Encounter Details Date Type Department Care Team (Late st Contact Info) Description 12/15/2024 11:30 AM EDT Office Visit [facility] [address] [place], [place] [phone] Iwona Chaudhari DO [address] [place] [address] Pain of both elbows (Primary Dx) Social History Tobacco Use Types [...] Sign Reading Time Taken Comments Blood Pressure 110/60 12/15/2024 11:54 AM EDT Pulse 72 12/15/2024 11:54 AM EDT Temperature 36.6 C (97.8 F) 12/15/2024 11:54 AM EDT Respiratory Rate 16 12/15/2024 11:54 AM EDT Oxygen Saturation - - Inhaled Oxygen Concentration - - Weight 87.7 kg (193 lb 6.4 oz) 12/15/2024 11:54 AM EDT Height 162.6 cm (5' 4 ) 12/15/2024 11:54 AM EDT Body Mass Index 33.2 12/15/2024 11:54 AM EDT documented in this encounter Plan of Treatment Upcoming Encounters Date Type Department Care Team (Late st Contact Info) Description 01/12/2025 10:00 AM EDT Office Visit [facility] [address] [place] [address] Aditi Matias MD [address] [place] [address] Scheduled Orders Name Type Priority Associated Diagnoses Orde r Schedule XR Elbow 3+ Views Left Imaging Routine Pain of both elbows Expected: 12/15/2024, Expires: 12/15/2025 XR Elbow 3+ Views Right Imaging Routine Pain of both elbows Expected: 12/15/2024, Expires: 12/15/2025 Scheduled Referrals Name Type Priority Associated Diagnoses Order Schedule Referral to Orthopaedic Surgery Outpatient Referral STAT Pain of both elbows Expected: 12/15/2024 (Approximate), Expires: 12/15/2025 documented as of this encounter Visit Diagnoses Diagnosis Pain of both elbows- Primary documented in this encounter Care Teams Chair Maker Relationship Specialty Start Date End Date Aditi Matias MD [address] [place] [phone] PCP - General Family Medicine 02/10/19 documented as of this encounter
--- OUTSIDE RECORDS SUMMARY | 2024-12-15 13:49 | XMS_ITS | Clinical Summary ---
Author Organization [facility] Address [address] [place] [address] Care Team Providers Care Display Card Writer Name Role Phone Unavailable Primary Care Provider Unavailabl e Social History Tobacco Use Types Packs/Day Years Used Date Smoking Tobacco: Never Assessed Sex and Gender Information Value Date Recorded Sex Assigned at Not on file Gender Identity Not on file Sexual Orientation Not on file Plan of Treatment Not on file
== END 2024-12-15 12:59 | disposition home or self-care (01) ==
LOC: HO.HHCL 12:58
PROVIDERS: PCP Family Medicine; Visit Provider Family Medicine
DX: M25.521 Pain in right elbow (principal); M25.522 Pain in left elbow; M25.421 Effusion, right elbow; M25.422 Effusion, left elbow
CPT/HCPCS: 73080

== ENCOUNTER → 2024-12-15 14:06 | Outpatient (BNV) | payer BC, SELFPAY | PROVIDERS: PCP Family Medicine; Visit Provider Radiology Diagnostic Radiology | DX: M25.522 Pain in left elbow (principal); R22.32 Localized swelling, mass and lump, left upper limb; M25.521 Pain in right elbow; R22.31 Localized swelling, mass and lump, right upper limb | CPT/HCPCS: 73080 ==

== ENCOUNTER 2025-01-24 13:59 | Outpatient (AMB) | payer OTHER, SELFPAY ==
--- NOTE | 2025-01-24 14:05 | A.OFFVIS_ITS ---
Vital Signs 01/24/25 14:30 Height 5 ft 4 in Weight 185 lb BMI 31.8 Handedness Right Intake Visit Reasons: New Prob: B/L elbow pain Intake Note: Joan is a 49 year old right hand dominant female who presents today for a evaluation of her bilateral elbow pain. Patient reports ongoing paint for about 4 months. She reports that her pain is on the radial aspect of the elbow. She notices that her pain are equal in both elbow. Patient notices her pain is worse when she is lifting something heavy. She states that she has been going to OT since 12/24/24 which is giving her mild relief. IMPRESSION: Unremarkable examination of the right elbow. IMPRESSION: Unremarkable examination of the left elbow. Allergies cinnamon Allergy (Mild, Verified 11/08/24 14:20) Anaphylaxis kiwi Allergy (Verified 11/08/24 14:20) Anaphylaxis pineapple Allergy (Verified 11/08/24 14:20) Anaphylaxis strawberry Allergy (Verified 11/08/24 14:20) Anaphylaxis peaches Allergy (Mild, Uncoded 10/12/24 13:59) Anaphylaxis HPI HPI New Prob: B/L elbow pain: Details: Ms. Rivero is a 49-year-old female who presents to the office today with bilateral elbow pain. She reports that 1 morning she woke up with the elbow pain and points to the areas of the lateral epicondyles on both elbows. She reports the pain has been present for the past 4 months. She has been working with occupational therapy but has been seeing only minimal relief. [facility] Medical History (Updated 01/24/25 @ 15:04 by Graciela Lauren PA-C) Internal derangement of left knee Back pain GERD (gastroesophageal reflux disease) COVID-19 vaccine administered Lab test negative for COVID-19 virus Asthma Anxiety Lipoma Pancreatitis Surgical History Hx of esophagogastroduodenoscopy Hx of colonoscopy History of carpal tunnel release (~06/22/20) Status post excision of lipoma Family History Maternal Grandmother History of ovarian cancer Mother History of thyroid disease Social History Alcohol intake: never Patient Tobacco Use Status: Never used Tobacco Current occupational status: employed 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 No ecchymosis, erythema, or edema. No tenderness to palpation over the olecranon. Tenderness to palpation over the lateral epicondyle. NVI. Psych Appearance: grossly normal Mental Status: mental status grossly normal Attitude: cooperative Assessment & Plan Assessment & Plan (1) Lateral epicondylitis of both elbows: Code(s): M77.11 - Lateral epicondylitis, right elbow; M77.12 - Lateral epicondylitis, left elbow Category: Medical Plan Ms. Rivero is a 49-year-old female who presents to the office today with bilateral elbow pain. She reports that 1 morning she woke up with the elbow pain and points to the areas of the lateral epicondyles on both elbows. She reports the pain has been present for the past 4 months. She has been working with occupational therapy but has been seeing only minimal relief. While in the office today, we discussed continued conservative treatment with elbow bracing and continued occupational therapy. We also discussed the role of cortisone injection. Patient would like to hold off on the cortisone injection at this time. She will continue with occupational therapy and I have recommended counterforce tennis elbow braces bilaterally. She will obtain these outside of our office. I have educated the patient on proper instruction of wearing these braces. Should she continue to have pain after her full course of occupational therapy she will contact our office for the possibility of cortisone injections. Otherwise she will follow up PRN. X-rays of bilateral elbows which were obtained on 12/15/24 revealed no acute abnormalities. Coding Level of Care Code Est Pt Level 3 (47499) Diagnoses Lateral epicondylitis of both elbows M77.11; M77.12
[2025-01-24 14:30] VITALS: BMI 31.8
--- OUTSIDE RECORDS SUMMARY | 2025-01-24 14:47 | XMS_ITS | Encounter Summary ---
Author Organization Located Within [facility] Address [address] [place] [address] [place] [phone] Phone Care Team Providers Care Bottle Dealer Name Role Phone Matthew Leo MD Primary Care Provider [phone] Pcp, Unknown Primary Care Provider Unavailabl e Encounter Details Date Type Department Care Team (Late st Contact Info) Description 08/15/2017 Procedure Pass [address] [place] [address] Social History Tobacco Use Types Packs/Day Years Used Date Smoking Tobacco: Never Smokeless Tobacco: Never Comments No Sex and Gender Information Value Date Recorded Sex Assigned at Female 09/05/2024 11:22 AM EDT Legal Sex Female 9:29 PM EDT Gender Identity Female 09/05/2024 11:22 AM EDT Sexual Orientation Straight 09/05/2024 11 :22 AM EDT documented as of this encounter Last Filed Vital Signs Vital Sign Reading Time Taken Comments Blood Pressure - - Pulse - - Temperature - - Respiratory Rate - - Oxygen Saturation - - Inhaled Oxygen Concentration - - Weight 68 kg (150 lb) 08/16/2017 10:18 AM EST Height 162.6 cm (5' 4 ) 08/16/2017 10:18 AM EST Body Mass Index 25.75 08/16/2017 10:18 AM EST documented in this encounter Plan of Treatment Not on file documented as of this encounter Visit Diagnoses Not on filedocumented in this encounter Care Teams Bottle Dealer Relationship Specialty Start Date End Date Matthew Leo MD [address] [facility] [place] [address] [email or web address] PCP - General Internal Medicine 07/10/17 08/24/17 Pcp, Unknown PCP - General 08/25/17 documented as of this encounter Additional Source Comments The information contained in this document represents components of the legal health record. It is not the complete legal health record.Loc[facility]
--- OUTSIDE RECORDS SUMMARY | 2025-01-24 14:47 | XMS_ITS | Encounter Summary ---
Author Organization [employer] Address [address] [facility] 7t [place] [address] Care Team Providers Care Logistics Supervisor Name Role Phone Aditi Matias MD Primary Care Provider + Encounter Details Date Type Department Care Team ([facility] st Contact Info) Description 06/28/2022 Telephone [facility] [address] [place], [place] [phone] Aditi Matias MD [address] [place], [place] [phone] Social History Tobacco Use Types Packs/Day Years [...] as of this encounter Plan of Treatment Not on file documented as of this encounter Visit Diagnoses Not on filedocumented in this encounter Care Teams Logistics Supervisor Relationship Specialty Start Date End Date Aditi Matias MD [address] [place], [place] [phone] PCP - General Family Medicine 02/10/19 documented as of this encounter
--- OUTSIDE RECORDS SUMMARY | 2025-01-24 14:47 | XMS_ITS | Clinical Summary ---
Author Organization [facility] Address [address] [place] [address] Care Team Providers Care Chalk Tester Name Role Phone Unavailable Primary Care Provider Unavailabl e Social History Tobacco Use Types Packs/Day Years Used Date Smoking Tobacco: Never Assessed Sex and Gender Information Value Date Recorded Sex Assigned at Not on file Gender Identity Not on file Sexual Orientation Not on file Plan of Treatment Not on file
== END 2025-01-24 14:40 | disposition home or self-care (01) ==
LOC: HO.HOS 13:59
PROVIDERS: PCP Internal Medicine; Visit Provider Physician Assistant
DX: M77.11 Lateral epicondylitis, right elbow (principal); M77.12 Lateral epicondylitis, left elbow
CPT/HCPCS: 99213

== ENCOUNTER 2025-02-21 08:07 | Outpatient (RCR) | payer OTHER, SELFPAY ==
--- NOTE | 2024-12-24 08:19 | MHC.OT.EP ---
[address] [phone] Occupational Therapy Plan of Care Patient Name: Joan Rivero Date of Evaluation: 12/24/24 Diagnosis: B/L Epicondylitis Pain Location: B/L forearms and into lateral epicondyles, tight pulling Tenderness over B/L extensor wads and into tendon insertion at lateral elbows, and left medial elbow Pain Score: 6 Pain Scale Used: Numeric (0 - 10) Aggravating Factors: Gripping, lifting and carrying Alleviating Factors: Short dose of Prednisone, antiinflammatories, ice, heat Assessment: 49 yo female presents w/ B/L forearm and elbow pain for the past couple months, initially starting while sleeping and then worsening w/ gripping, lifting and carrying. On assessment today, she has decreased gross grasp B/L'ly and pain is worsened w/ elbow extended w/ production lead. She has tenderness over both extensor masses and into lateral elbows, some pain in left medial elbow. Symptoms are consistent w/ B/L lateral epicondylitis w/ left medial epicondylitis. We have started therapy w/ education for activity modification and joint positioning and will progress through program into strengthening w/ goal of pain free use of both hands w/ daily activities and sleeping. Frequency and Duration: The patient will be seen 2x/wk for 4 weeks Short Term Goals: Ind w/ Alexander stretches Pt to trial nighttime wrist orthosis and sleep modifications Pt to trial CFB w/ activities Good follow through w/ joint protection/activity modification Progress to eccentric exercises <2/10 pain w/ light activiites Automated Weaver Goals: Ind w/ strengthening program Pt to report ease w/ sleeping B/L gross grasp >40lb pain free Pain free a rest Treatment Plan: Therapeutic Exercise Therapeutic Activity Home Exercise Program Splinting Patient Education ADL Training Ultrasound Iontophoresis MHP Cold Packs Joint Mobilization Soft Tissue Mobilization Kinesiotaping Ionto w/ dexamethasone Electronically Signed By: ROSY Boyd/L CHT Please Sign and return to therapist. Thank you once again for your referral.
--- NOTE | 2025-02-21 08:53 | MHC.OT.DC ---
[facility] [address] [phone] F: [phone] F: [phone] Occupational Therapy Discharge Note Patient Name: Joan Rivero Provider: Dr Aditi Matias Diagnosis: B/L Epicondylitis Date of Evaluation: 12/24/24 Date of Discharge: 02/21/25 Treatments to Date: 13 Discharge Status: Improved Function Independent with HEP Discharge Summary: Joan was referred to OT with B/L lateral epicondylitis. She has completed course of OT and is overall doing well, low pain and rest and able to sleep through night without pain or waking with elbow pain (has been wearing wrist orthosis at night). Good follow through w/ joint protection and activity modification, wears CFB PRN. Good follow through w/ HEP. Still w/ pain at times, but good understanding of self management and I anticipate she will progress over time. Electronically Signed By: Yin Camacho OTR/L CHT Reviewed/agree with student documentation: Therapist: Please Sign and return to therapist, thank you for your referral.
== END 2025-02-21 08:54 | disposition home or self-care (01) ==
LOC: HO.OT 08:07
PROVIDERS: PCP Internal Medicine; Visit Provider Internal Medicine
DX: M77.00 Medial epicondylitis, unspecified elbow (principal)
CPT/HCPCS: 97033; 97035; 97110; 97140; 97165; 97535

== ENCOUNTER 2025-03-14 10:48 | Outpatient (REF) | payer OTHER, SELFPAY ==
--- OUTSIDE RECORDS SUMMARY | 2025-03-12 12:20 | XMS_ITS | Encounter Summary ---
Author Organization [employer] Address [address] [facility] [address] [facility] 7t [place] [address] Care Team Providers Care Special Education Secretary Name Role Phone Aditi Matias MD Primary Care Provider + Reason for Visit * Reason Comments Chest Pain Encounter Details Date Type Department Care Team ([facility] st Contact Info) Description 03/12/2025 12:20 PM EDT Office Visit [facility] [address] [place], [place] [phone] Alexei Wesley MD [address] [place] [address] Chest wall pain (Primary Dx) Social History Tobacco Use Types Packs/Day Years Used Date Smoking Tobacco: Never Passive Smoke Exposure: Never Smokeless Tobacco: Never Alcohol Use Standard Drinks/Week Comments Not Currently 0 (1 standard drink = 0.6 oz pur e alcohol) oca Housing Stability Answer Date Recorded What is your housing situation today? I have radha dyson 12/30/[address] you li ve. Do you have problems with any of the following? None of the above 12/30/2024 Food Insecurity Answer Date Recorded Within the past 12 months, y ou worried that your food would run out before you got money to buy more: Never True 12/30/2024 Within the past 12 months,th e food you bought just didn't last and you didn't have enough money to get more: Never True Transportation Answer Date Recorded In the past 12 months, has l ack of transportation kept you from medical appts, meetings, work or from getting things needed for daily living? No 12/30/2024 Utilities Answer Date Recorded In the past 12 months, has t he electric, gas, oil or water company threatened to shut off services in your home? No 12/30/2024 Depression Answer Date Recorded Patient Health Questionnaire-2 Score 0 10/03/2023 Internet Access Answer Date Recorded Internet Access Q1 No 12/30/2024 Internet Access Q2 I do not want or need it 12/08 Comments No Sex and Gender Information Value Date Recorded Sex Assigned at Female 04/08/2022 10:14 AM EDT Legal Sex Female 10:14 AM EDT Gender Identity Female 04/08/2022 10:14 AM EDT Sexual Orientation Choose not to disclose 2021 10:14 AM EDT documented as of this encounter Last Filed Vital Signs Vital Sign Reading Time Taken Comments Blood Pressure 122/74 03/12/2025 11:53 AM EDT Pulse 78 03/12/2025 11:53 AM EDT Temperature 36.6 C (97.8 F) 03/12/2025 11:53 AM EDT Respiratory Rate 16 03/12/2025 11:53 AM EDT Oxygen Saturation - - Inhaled Oxygen Concentration - - Weight - - Height - - Body Mass Index - - documented in this encounter Progress Notes * Carrillo Alvarez RN - 03/12/2025 12:20 PM EDT Assessment: Patient presents to [facility] c/o Right sided chest pain that started last night. Pt reportedshe has had 3 episodes of chest pain has not been evaluated by a physician. Pt also reported headaches of unknown cause. Symptoms have been present for days. Symptoms are episodic. Patient is taking (treatment/meds) none. 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 Acute maxillary sinusitis 12/18/2023 Shoulder pain, right 06/07/2023 Elevated BP without diagnosis of hypertension 06/07/2023 Witnessed episode of apnea 01/30/2023 Irritable bowel syndrome with constipation 09/17/2022 Menorrhagia with regular cycle 09/17/2022 Allergic rhinitis 07/10/2022 Visual impairment 07/10/2022 Moderate persistent asthma without complication 07/10/2022 Hip pain 06/28/2022 Carpal tunnel syndrome 06/28/2022 Meralgia paresthetica 06/28/2022 Trochanteric bursitis of right hip 06/28/2022 Mild intermittent asthma 10/23/2017 Migraine without aura, not refractory 10/23/2017 Seasonal allergies 10/23/2017 Anxiety 09/02/2012 Gastroesophageal reflux disease 09/02/2012 In Office Testing EKG obtained Plan of care: Report to Dr. Wesley Provider evaluation: Yes Carrillo Alvarez RN [1] Allergies Allergen Reactions [place] Oil Anaphylaxis Pineapple Anaphylaxis [place] Extract Anaphylaxis Other reaction(s): WHEEZING Chicken Allergy Other reaction(s): hives Cinnamon Kiwi Extract [place] Flavoring Agent (Non-Screening) Pineapple Extract Lipscomb-Sweet Potatoes-Peaches [Alitraq] [2] Current Outpatient Medications Medication Sig Dispense Refill acetaminophen (Tylenol 8 Hour) 650 MG ER tablet Take 1 tablet (650 mg) by mouth every 6 (six) hoursif needed for mild pain. 40 tablet 1 albuterol (2.5 MG/3ML) 0.083% nebulizer solution Take 3 mL (2.5 mg) by nebulization every 6 (six) hours if needed for wheezing or shortness of breath. 75 mL 1 albuterol 108 (90 Base) MCG/ACT inhaler INHALE TWO PUFFS INTO THE LUNGS EVERY FOUR TO SIX HOURS NEEDED 20.1 g 1 cetirizine (ZyrTEC) 10 MG tablet TAKE 1 TABLET BY MOUTH EVERY DAY 90 tablet 0 cyclobenzaprine (Flexeril) 5 MG tablet Take 1 tablet (5 mg) by mouth if needed in the morning, at noon, and at bedtime for muscle spasms for up to 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 150 g 3 escitalopram (Lexapro) 5 MG tablet Take 1 tablet (5 mg) by mouth Once per day. 90 tablet 2 fluticasone (Flonase) 50 MCG/ACT nasal spray Administer 1 spray into each nostril Once per day. 16 g 3 Linzess 145 MCG capsule Take 145 mcg by mouth in the morning. LORazepam (Ativan) 0.5 MG tablet Take 1 tablet (0.5 mg) by mouth 1 (one) time if needed for anxietyfor up to 2 doses. Take one tablet 1-2 hours before flights 2 tablet 0 meloxicam (Mobic) 15 MG tablet Take 1 tablet (15 mg) by mouth Once per day. 30 tablet 0 Mometasone Furoate (Asmanex HFA) 200 MCG/ACT aerosol INHALE 4 PUFFS IN AM, NOON,& BEDTIME FOR 5DAYS, THEN 2 PUFFS AM, NOON,& BEDTIME FOR 5 DAYS, THEN 2 PUFFS 2X FOR 5 DAYS, THEN 2 PUFFS AM 13 g 6 naproxen (Naprosyn) 500 MG tablet Take 1 tablet (500 mg) by mouth if needed in the morning and at bedtime for mild pain. 40 tablet 1 omeprazole (PriLOSEC) [address] capsule Take 40 mg by mouth in the morning. Spacer/Aero-Holding Chambers (OptiChamber Renee) misc 1 each every 4 (four) hours if needed (asthma). 1 each 0 Spacer/Aero-Holding Chambers (OptiChamber Renee) misc 1 each every 4 (four) hours if needed (asthma). 2 each 1 No current facility-administered medications for this visit. * Alexei Wesley MD - 03/12/2025 12:20 PM EDT Subjective History was provided by the patient. Joan Rivero is a 49 y.o. female who presents for evaluation of right-sided chest wall intermittent fluttering/jabbing sensations lasting seconds to minutes. Current symptoms started since yesterday. Recently returned from [place], but had similar episodes few weeks ago prior to the trip and whilebrianna was in [place]. Denies any associated SOB/COLÓN. Denies F/C/N/V/D. Denies cough, congestion, or rhinorrhea. Denies DIAZ. Her symptoms are not worse or better with movements, deep inspiration, or palpation. Not worse with exertion. Symptoms noticeable at rest. Denies any new medications. Denies any change in activity. Objective Vitals: 03/12/25 1153 BP: 122/74 BP Location: Left arm Patient Position: Sitting BP Cuff Size: Large adult Pulse: 78 Resp: 16 Temp: 97.8 ??F (36.6 ??C) TempSrc: Oral Physical Exam Vitals reviewed. Constitutional: General: She is not in acute distress. Appearance: Normal appearance. She is not ill-appearing, toxic-appearing or diaphoretic. HENT: Head: Normocephalic and atraumatic. Right Ear: External ear normal. Left Ear: External ear normal. Nose: Nose normal. No congestion or rhinorrhea. Mouth/Throat: Mouth: Mucous membranes are moist. Pharynx: Oropharynx is clear. No oropharyngeal exudate or posterior oropharyngeal erythema. Eyes: Extraocular Movements: Extraocular movements intact. Conjunctiva/sclera: Conjunctivae normal. Neck: Vascular: No carotid bruit. Comments: No JVD Cardiovascular: Rate and Rhythm: Normal rate and regular rhythm. Heart sounds: Normal heart sounds. Pulmonary: Effort: Pulmonary effort is normal. No respiratory distress. Breath sounds: Normal breath sounds. No wheezing, rhonchi or rales. Chest: Chest wall: No tenderness. Abdominal: General: Abdomen is flat. There is no distension. Palpations: Abdomen is soft. Tenderness: There is no abdominal tenderness. There is no right CVA tenderness, left CVA tenderness, guarding or rebound. Musculoskeletal: General: Normal range of motion. Cervical back: Neck supple. Right lower leg: No edema. Left lower leg: No edema. Comments: No calf tenderness bilaterally; no cords; negative Saima's Lymphadenopathy: Cervical: No cervical adenopathy. Skin: General: Skin is warm and dry. Coloration: Skin is not jaundiced. Findings: No rash. Neurological: General: No focal deficit present. Mental Status: She is alert and oriented to person, place, and time. Cranial Nerves: No cranial nerve deficit. Sensory: No sensory deficit. Motor: No weakness. Coordination: Coordination normal. Gait: Gait normal. Psychiatric: Mood and Affect: Mood normal. Behavior: Behavior normal. Joan was seen today for chest pain. Diagnoses and all orders for this visit: Chest wall pain (Primary) - CBC auto differential; Future - Basic Metabolic Panel; Future - Vitamin B12/Folate, Serum Panel; Future - ECG 12 lead Patient presents to [facility] due to intermittent, brief right-sided chest wall fluttering/jabbing sensations Symptoms lasting seconds to minutes Non-exertional, non-reproducible Current symptoms started since yesterday, but had similar episodes few weeks ago prior to visiting [place] and while she was there EKG is unremarkable for arrhythmia or evidence of ischemia Denies any associated SOB/COLÓN Denies any infection symptoms Check BMP/CBC for electrolytes and H/H Check Vitamin B12 and Folate Discussed ER evaluation if persistent or worsening symptoms documented in this encounter Plan of Treatment Upcoming Encounters Date Type Department Care Team (Late st Contact Info) Description 05/20/2025 11:45 AM EST Office Visit [facility] [address] [place], [place] [phone] Aditi Matias MD [address] [place] [address] Scheduled Orders Name Type Priority Associated Diagnoses Orde r Schedule CBC auto differential Lab Routine Chest wall pain Expected: 03/13/2025 (Approximate), Expires: 03/13/2026 Basic Metabolic Panel Lab Routine Chest wall pain Expected: 03/13/2025 (Approximate), Expires: 03/13/2026 Vitamin B12/Folate, Serum Panel Lab Routine Chest wall pain Expected: 03/13/2025, Expires: 03/13/2026 documented as of this encounter Procedures Procedure Name Priority Date/Time Associated Diagnosis Comments ECG 12-LEAD Routine 03/13/2025 12:00 PM EDT Chest wall pain documented in this encounter Results * ECG 12 lead (03/13/2025 12:00 PM EDT) Narrative Alexei Wesley MD - 03/13/2025 12:00 PM EDT NSR 67, no ST-T change, no Q-waves, no arrhythmia. us Alexei Wesley MD ECG ORDERABLES Final Result documented in this encounter Visit Diagnoses Diagnosis Chest wall pain- Primary Painful respiration documented in this encounter Care Teams Special Education Secretary Relationship Specialty Start Date End Date Aditi Matias MD [address] [place] [id number] PCP - General Family Medicine 02/10/19 documented as of this encounter
--- OUTSIDE RECORDS SUMMARY | 2025-03-14 13:00 | XMS_ITS | Encounter Summary ---
Author Organization [employer] Address [address] [facility] 7t [place] [address] Care Team Providers Care Van Loader Name Role Phone Aditi Matias MD Primary Care Provider + Encounter Details Date Type Department Care Team (Latest Contact Info) Description 03/12/2025 Travel Social History Tobacco Use Types Packs/Day [...] Description 05/20/2025 11:45 AM EST Office Visit [facility] [address] [place], [place] [phone] Aditi Matias MD [address] [place] [address] documented as of this encounter Visit Diagnoses Not on filedocumented in this encounter Care Teams Van Loader Relationship Specialty Start Date End Date Aditi Matias MD [address] [place], [place] [phone] PCP - General Family Medicine 02/10/19 documented as of this encounter
--- OUTSIDE RECORDS SUMMARY | 2025-03-14 13:00 | XMS_ITS | Encounter Summary ---
Author Organization [employer] Address [address] [facility] [address]t [place] [address] Care Team Providers Care Chief Diversity Officer Name Role Phone Aditi Matias MD Primary Care Provider + Encounter Details Date Type Department Care Team ([facility] st Contact Info) Description 02/17/2023 Telephone [facility] [address] [place] [address] Aditi Matias MD [address] [place] [address] Social History Tobacco Use Types Packs/Day Years [...] not better by Friday02/24/23 will come to [facility] to be seen by provider. Pt [...] occurs - You become worse Joan Tafoya [facility] Clinical Support (supporting Aditi Matias MD) 4 hours ago (9:50 AM) HORTENSIA Diane, I tested positive for COVID on Friday at [facility]. I was reaching out to ask for some suggestion on how to manage some throat concerns I have. I throat is very soar and hard to swallow at time,I have been using Vale, honey, non caffeine tea. Cold beverages like [...] Description 05/20/2025 11:45 AM EST Office Visit [facility] [address] [place] [address] Aditi Matias MD [address] [place] [address] documented as of this encounter Visit Diagnoses Not on filedocumented in this encounter Care Teams Chief Diversity Officer Relationship Specialty Start Date End Date Aditi Matias MD [address] [place] [phone] PCP - General Family Medicine 02/10/19 documented as of this encounter
--- OUTSIDE RECORDS SUMMARY | 2025-03-14 13:00 | XMS_ITS | Encounter Summary ---
Author Organization [facility] Address [address] [facility] [address] [place] [phone] Phone Care Team Providers Care Comic Artist Name Role Phone Matthew Leo MD Primary Care Provider [phone] Pcp, Unknown Primary Care Provider Unavailabl e Encounter Details Date Type Department Care Team (Late st Contact Info) Description 08/15/2017 Procedure Pass [address] [place] [address] Social History Tobacco Use Types Packs/Day Years [...] on filedocumented in this encounter Care Teams Comic Artist Relationship Specialty Start Date End Date Matthew Leo MD [address] [facility] [place] [address] [email or web address] PCP - General Internal Medicine 07/10/17 08/24/17 Pcp, Unknown PCP - General 08/25/17 documented as of this encounter Additional Source Comments The information contained in this document represents components of the legal health record. It is not the complete legal health record.[facility]
--- OUTSIDE RECORDS SUMMARY | 2025-03-14 13:00 | XMS_ITS | Encounter Summary ---
Author Organization [employer] [facility] Address [address] [place] [address] 7t [place] [address] Care Team Providers Care Patient Care Associate Name Role Phone Aditi Matias MD Primary Care Provider + Encounter Details Date Type Department Care Team (Late st Contact Info) Description 05/22/2022 Orders Only [facility] [address] [place] [address] Rachel Ochoa LPN Social History Tobacco Use [...] Description 05/20/2025 11:45 AM EST Office Visit [facility] [address] [place] [address] Aditi Matias MD [address] [place] [address] documented as of this encounter Visit Diagnoses Not on filedocumented in this encounter Care Teams Patient Care Associate Relationship Specialty Start Date End Date Aditi Matias MD [address] [place] [address] PCP - General Family Medicine 02/10/19 documented as of this encounter
--- OUTSIDE RECORDS SUMMARY | 2025-03-14 13:00 | XMS_ITS | Clinical Summary ---
Author Organization [facility] Address [address] [facility] [address] [place] [phone] Phone Care Team Providers Care Reimbursement Rep Name Role Phone Pcp, Unknown Primary Care Provider Unavailabl e Allergies Active Allergy Reactions Criticality Noted Date Comments Chicken 04/05/2013 Other reaction(s): hives [place] 04/05/2013 Other reaction(s): WHEEZING [place] 08/15/2017 Medications albuterol (PROVENTIL HFA) 90 mcg/actuation inhaler 2 puffs as needed Active LORazepam (ATIVAN) 0.5 MG tablet 1 tablet at bedtime as needed Active lidocaine (LIDODERM) 5 % Place 1 patch onto the skin daily. Remove & Discard patch within 12 hours or as directed by 30 patch 09/05/2024 Active Active Problems No known active problems Social History Tobacco Use Types Packs/Day Years Used Date Smoking Tobacco: Never Smokeless Tobacco: Never Alcohol Use Standard Drinks/Week Comments No 0 (1 standard drink = 0.6 oz pur e alcohol) Education Answer Date Recorded Are you interested in more education? Not on svetlana e 10/04/2022 Are you concerned about learning? Not on file 10/04/2022 No 10/04/2022 No 10/04/2022 Digital Access Answer Date Recorded No 11/01/2022 No 11/01/2022 Reliable internet access at home? Not on file 11/01/2022 Device with a working camera? Not on file Comments No Sex and Gender Information Value Date Recorded Sex Assigned at Female 09/05/2024 11:22 AM EDT Legal Sex Female 9:29 PM EDT Gender Identity Female 09/05/2024 11:22 AM EDT Sexual Orientation Straight 09/05/2024 11 :22 AM EDT Last Filed Vital Signs Vital Sign Reading Time Taken Comments Blood Pressure 137/78 09/05/2024 1:17 PM EDT Pulse 63 09/05/2024 1:17 PM EDT Temperature 35.9 C (96.7 F) 09/05/2024 1:17 PM EDT Respiratory Rate 17 09/05/2024 1:17 PM EDT Oxygen Saturation 99% 09/05/2024 1:17 PM EDT Inhaled Oxygen Concentration - - Weight 83.9 kg (185 lb) 09/05/2024 1:17 PM EDT Height 162.6 cm (5' 4 ) 09/05/2024 1:17 PM EDT Body Mass Index 31.76 09/05/2024 1:17 PM EDT Plan of Treatment Health Maintenance Due Date Last Done Comments DEPRESSION SCREENING 1986 HEPATITIS C SCREENING 1992 HIV ONE-TIME SCREENING (18-6 5 YEARS) 1992 PAP SMEAR 11/25/1995 COLOGUARD 11/25/2019 COLONOSCOPY 11/25/2019 COLORECTAL CANCER SCREENING 11/25/2019 FIT TEST 11/25/2019 FOBT 11/25/2019 SIGMOIDOSCOPY 11/25/2019 VIRTUAL COLONOSCOPY 11/25/2019 PNEUMOCOCCAL VACCINES (50+ years) (2 of 2 - PCV) 2024 02/20/2001 ZOSTER VACCINES (1 of 2) 2024 INFLUENZA VACCINE (#1) 2025 , 03/17/2019 COVID-19 VACCINE (3 - 2024-2 6 season) 2025 06/28/2020, 06/07/2020 LIPID PANEL 02/20/2025 02/21/2020 MAMMOGRAM 04/08/2025 04/08/2023, 09/01/2018 SCREENING FOR DIABETES 07/13/2027 07/13/2024 Adult Td,Tdap Booster 02/03/2029 02/03/2019 , 03/11/2012 RSV VACCINE (1 - 1-dose 75+ series) 2049 SMOKING STATUS SCREENING (On ce After 26 Yrs) Completed 09/05/2024 HEPATITIS A VACCINES Aged Out No long er eligible based on patient's age to complete this topic HIB VACCINES Aged Out No longer eligi ble based on patient's age to complete this topic MENINGOCOCCAL VACCINES (ACWY) Aged Out No longer eligible based on patient's age to complete this topic MENINGOCOCCAL VACCINES (B) Aged Out N o longer eligible based on patient's age to complete this topic Medical Devices Not on file Insurance WELLSENSE NON NSPG PCP SILVER CLARITY CONNECTORCARE WELLSENSE NON NSPG PCP SILVER CLARITY CONNECTORCARE WELLSENSE NON NSPG PCP SILVER CLARITY CONNECTORCARE WELLSENSE NON NSPG PCP SILVER CLARITY CONNECTORCARE WELLSENSE NON NSPG PCP SILVER CLARITY CONNECTORCARE WELLSENSE NON NSPG PCP SILVER CLARITY CONNECTORCARE WELLSENSE NON NSPG PCP SILVER CLARITY CONNECTORCARE WELLSENSE NON NSPG PCP SILVER CLARITY CONNECTORCARE WELLSENSE NON NSPG [place] [address] Care Teams Reimbursement Rep Relationship Specialty Start Date End Date Pcp, Unknown PCP - General 08/25/17 Additional Source Comments The information contained in this document represents components of the legal health record. It is not the complete legal health record.[facility]
--- OUTSIDE RECORDS SUMMARY | 2025-03-14 13:00 | XMS_ITS | Clinical Summary ---
Author Organization [employer] Address [address] [place] [address] 7[address] [place] [address] Care Team Providers Care Multimedia Coordinator Name Role Phone Aditi Matias MD Primary Care Provider + Allergies Active Allergy Reactions Criticality Noted Date Comments [place] Oil Anaphylaxis High 03/05/2021 Chicken Allergy 04/05/2013 Other reaction(s): hives Cinnamon 09/17/2022 Kiwi Extract 09/17/2022 Marin Flavoring Agent (Non-Screening) 09/17/2022 Pineapple Anaphylaxis High 03/05/2021 Pineapple Extract 05/16/2021 [place] Extract Anaphylaxis High 04/05/2013 Other reaction(s): WHEEZING Alitraq 08/15/2017 Medications Linzess 145 MCG capsule Take 145 mcg by mouth in the morning. 2 Active omeprazole (PriLOSEC) [address] capsule Take 40 mg by mouth in the morning. 2 Active cetirizine (ZyrTEC) 10 MG tablet TAKE 1 TABLET BY MOUTH EVERY DAY 90 tablet 3 Active Mometasone Furoate (Asmanex HFA) 200 MCG/ACT aerosol INHALE 4 PUFFS IN AM, NOON,& BEDTIME FOR 5 DAYS, THEN 2 PUFFS AM, NOON,& BEDTIME FOR 5 DAYS, THEN 2 PUFFS 2X FOR 5 DAYS, THEN 2 PUFFS AM 13 g 6 4 Active cyclobenzaprine (Flexeril) 5 MG tabletIndication s:Neck strain, initial encounter Take 1 tablet (5 mg) by mouth if needed in the morning, at noon, and at bedtime for muscle spasms for up to 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 75 mL 1 4 Active escitalopram (Lexapro) 5 MG tablet Take 1 tablet (5 mg) by mouth Once per day. 90 tablet 2 4 Active fluticasone (Flonase) 50 MCG/ACT nasal spray Administer 1 spray into each nostril Once per day. 16 g 3 5 Active meloxicam (Mobic) 15 MG tablet Take 1 tablet (15 mg) by mouth Once per day. 30 tablet 5 026 Active naproxen (Naprosyn) 500 MG tablet Take 1 tablet (500 mg) by mouth if needed in the morning and at bedtime for mild pain. 40 tablet 1 5 026 Active acetaminophen (Tylenol 8 Hour) 650 MG ER tablet Take 1 tablet (650 mg) by mouth every 6 (six) hours if needed for mild pain. 40 tablet 1 5 026 Active Diclofenac Sodium 1 % gel Apply 2 g topically if needed in the morning, at noon, in the evening, and at bedtime (pain). 150 g 3 5 Active Spacer/Aero-Hold ing Chambers (OptiChamber Renee) misc 1 each every 4 (four) hours if needed (asthma). 1 each 5 Active Spacer/Aero-Hold ing Chambers (OptiChamber Renee) misc 1 each every 4 (four) hours if needed (asthma). 2 each 1 5 Active albuterol 108 (90 Base) MCG/ACT inhalerIndicatio ns:Mild intermittent asthma without complication INHALE TWO PUFFS INTO THE LUNGS EVERY FOUR TO SIX HOURS NEEDED 20.1 g 1 5 Active LORazepam (Ativan) 0.5 MG tabletIndication s:Anxiety Take 1 tablet (0.5 mg) by mouth 1 (one) time if needed for anxiety for up to 2 doses. Take one tablet 1-2 hours before flights 2 tablet Active Active Problems Problem Noted Date Diagnosed Date Medial epicondylitis of elbow 11/23/2024 Assessment & Plan (11/23/2024 6:52 PM EDT): Use meloxicam daily x 1 to 2 weeks + Tylenol as needed Apply ice to affected area twice daily and I gave her information regarding elbow exercises for 2 weeks, reconsult as needed, may need referral to OT Advised to use elbow sleeve, she will get it OTC at retail pharmacy. Cystitis 11/23/2024 Assessment & Plan (11/23/2024 6:51 PM EDT): Has mild leukocyturia, Rx Bactrim x 5 days Increase water/cranberry juice intake, advised to use OTC clotrimazole cream as needed vaginal discharge secondary to antibiotics. Reconsult as needed, follow-up urine culture results. Class 1 obesity due to exces s [...] of moderate intensity exercise. Refer to nutrition [facility] [place] Will check RBS and A1c due to [...] Acute maxillary sinusitis 12/18/2023 Assessment & Plan (12/30/2024 3:50 PM EDT): Rapid viral test is negative today, Rx Augmentin x 7-10 days Rest (sleep at least 8 hours a night), she will be out of work x 2 days. Hydrate with plenty of water (avoid caffeine and alcohol). Use saline nose drops to loosen mucus + Flonase Take Acetaminophen (Tylenol )/Ibuprofen as needed to reduce fever, headache, body aches or discomfort Gargle with salt water and use throat sprays/lozenges for throat pain. Use heated, humidified air. If you do not have a humidifier, take hot showers. Cover coughs and sneezes using the crook of your elbow. If you have a fever, stay home and away from others (self isolation) until fever-free for 72 hours (temperature should be less than 100 F without medication). Assessment & Plan (12/18/2023 1:30 PM EDT): [...] are persistent she will need to call QA MANAGER for further eval reassurance most likely related [...] allergies 10/23/2017 Anxiety 09/02/2012 Assessment & Plan (11/23/2024 6:51 PM EDT): Use lorazepam 0.5 mg prior to airplane trip Continue escitalopram Assessment & Plan (04/09/2024 12:02 PM EDT): [...] Problem Noted Date Diagnosed Date Resolved Date UTI symptoms 11/23/2024 11/23/2024 Rhinitis 06/28/2022 07/10/2022 Assessment & Plan (06/28/2022 9:39 AM EST): Residual from recent Influenza Use NS, flonase and humidifier in the room Wear face mask outside to protect nasal mucosa from cold air. FU prn Encounters Date Type Department Care Team Description 03/12/2025 12:20 PM EDT Office Visit [facility] [address] [place] [phone] Alexei Wesley MD Chest wall pain (Primary Dx) 03/12/2025 Travel 03/11/2025 Telephone [facility] [address] [place] [address] Aditi Matias MD oct recall 02/02/2025 Refill [facility] [address] [place] [address] Aditi Matias MD Anxiety 01/02/2025 Refill [facility] [address] [place] [address] Aditi Matias MD Mild intermittent asthma without complication 12/30/2024 9:15 AM EDT Office Visit [facility] [address] [place] [phone] Aditi Matias MD Acute maxillary sinusitis, recurrence not specified (Primary Dx); Nasal congestion 12/30/2024 Travel 12/30/2024 Telephone [facility] [address] [place] [address] Aditi Matias MD Nurse Triage 12/28/2024 9:00 AM EDT Office Visit [facility] [address] [place] [phone] João Gibson MD Moderate persistent asthma with acute exacerbation (Primary Dx); Viral URI 12/28/2024 Travel 12/15/2024 11:30 AM EDT Office Visit [facility] [address] [place] [phone] Iwona Chaudhari DO Pain of both elbows (Primary Dx) 12/15/2024 Travel 12/13/2024 Telephone [facility] [address] [place] [phone] Aditi Matias MD Chart Prep 12/13/2024 Telephone [facility] [address] [place] [phone] Mady Denise RN from Last 3 Months Immunizations Immunization Administration Dates Next Due Hep A, Adult [...] Passive Smoke Exposure: Never Smokeless Tobacco: Never Tobacco Cessation:Counseling Given: [...] 16 03/12/2025 11:53 AM EDT Oxygen Saturation 98% 12/28/2024 8:50 AM EDT Inhaled Oxygen Concentration - - Weight 87.1 kg (192 lb) 12/30/2024 9:34 AM EDT Height 162.6 cm (5' 4 ) 12/30/2024 9:34 AM EDT Body Mass Index 32.96 12/30/2024 9:34 AM EDT Plan of Treatment Upcoming Encounters Date Type Department Care Team (Late st Contact Info) Description 05/20/2025 11:45 AM EST Office Visit [facility] [address] [place], [place] [phone] Aditi Matias MD [address] [place], [place] [phone] Health Maintenance Due Date Last Done Comments CT Colonography 1974 FIT DNA/Cologuard 1974 FIT 1974 FOBT 1975 HIV Screening 1975 Sigmoidoscopy 1975 Family Planning (PISQ) 1989 Depression Screening 10/02/2024 10/03/2023, 10/03/19 24 Zoster Vaccines (1 of 2) 2024 COVID-19 Vaccine ( season) 2025 04/25/2021, 06/28/2020, 06/07/2020 Influenza Vaccine (#1) 2025 , 03/26/2023, 04/18/2022, Additional history exists Lipid Panel 02/20/2025 02/21/2020 Mammogram 06/11/2025 06/11/2024, 12/11/2022, 04/08/2023, Additional history exists Diabetes: Hemoglobin A1C 07/13/2025 07/13/2024 Alcohol/Substance Use Screening 12/30/2025 12/30/2024 Disability Screening 12/30/2025 12/30/2024 SDOH Screening 12/30/2025 12/30/2024 Tobacco Screening 12/30/2025 12/30/2024 Colonoscopy 06/15/2026 06/15/2021 Colorectal Cancer Screening 06/15/2026 [...] 08/13/2011 Hepatitis C Screening Completed 08/16/2021, 022 Pneumococcal Vaccine: 50+ Years Completed 07/13/2024, 02/20/2001 HIB Vaccines Aged Out No longer eligi ble based on patient's age to complete this topic HPV Vaccines Aged Out No longer eligi ble based on patient's age to complete this topic IPV Vaccines Aged Out No longer eligi ble based on patient's age to complete this topic Meningococcal B Vaccine Aged Out No l onger eligible based on patient's age to complete [...] 03/13/2025 12:00 PM EDT Chest wall pain POCT COVID-19 AG SHAHID ID NOW Routine 12/30/2024 9:47 AM EDT Nasal congestion POCT INFLUENZA B (ID NOW RAPID MOLECULAR) Routine 12/28/2024 8:57 AM EDT Viral URI POCT INFLUENZA A (ID NOW RAPID MOLECULAR) Routine 12/28/2024 8:57 AM EDT Viral URI POCT RAPID COVID ANTIGEN Routine 12/28/2024 8:57 AM EDT Viral URI XR ELBOW 3+ VIEWS RIGHT Routine 12/15/2024 1:27 PM EDT Pain of both elbows XR ELBOW 3+ VIEWS LEFT Routine 1:25 PM EDT Pain of both elbows POCT GLYCATED HEMOGLOBIN, TOTAL Routine 07/13/2024 11:10 [...] Recently Relevant to Health Maintenance Results * ECG 12 lead (03/13/2025 12:00 PM EDT) Narrative Alexei Wesley MD - 03/13/2025 12:00 PM EDT NSR 67, no ST-T change, no Q-waves, no arrhythmia. us Alexei Wesley MD ECG ORDERABLES Final Result * POCT Rapid Covid-19 SHAHID ID NOW (12/30/2024 9:47 AM EDT) Coronavirus Antigen PCR Negative Negative, Indeterminate, None Detected, Invalid, Specimen unsatisfactory for evaluation, Weakly Positive, 2+ QC Media Lot # [id number] Lot# Expiration Date Swab 12/30/2024 9:47 AM EDT Aditi Matias MD POINT OF CARE TEST ENTER /EDIT ORDERABLES Final Result * Influenza B (ID NOW Rapid Molecular) (12/28/2024 8:57 AM EDT) Influenza B Negative Negative, Indeterminate [facility] Swab 12/28/2024 8:57 AM EDT João Gibson MD POINT OF CARE TEST ENTER/EDIT OR DERABLES Final Result Performing Organization Address [facility]/ZIP Co de Phone Number [facility] [address] [place] [phone] * Influenza A (ID NOW Rapid Molecular) (12/28/2024 8:57 AM EDT) Influenza A Negative Negative, Indeterminate [facility] Swab 12/28/2024 8:57 AM EDT João Gibson MD POINT OF CARE TEST ENTER/EDIT OR DERABLES Final Result Performing Organization Address [facility] Co de Phone Number [facility] [address] [place] [phone] * POCT Rapid COVID Ag (12/28/2024 8:57 AM EDT) Rapid COVID Ag Negative [facility] Swab 12/28/2024 8:57 AM EDT us João Gibson MD POINT OF CARE TEST ENTER/EDIT OR DERABLES Final Result Performing Organization Address [facility] Co de Phone Number [facility] [address] [place] [phone] * XR Elbow 3+ Views Right (12/15/2024 1:27 PM EDT) Anatomical Region Laterality Modality Upper Extremities, Elbow Right Radiogr aphic Imaging 12/15/2024 1:27 PM EDT Narrative 12/15/2024 2:27 PM EDT [address] [address] XRay Report Signed Patient: Joan Rivero MR#: [id number] 5 : 1975 Acct:[id number] Age/Sex: 49 / F ADM Date: 12/15/24 Loc: ZOIE Attending Dr: Iwona Chaudhari DO Ordering Physician: Iwona Chaudhari DO Date of Service: 12/15/24 Procedure(s): XR elbow RT min 3V Accession Number(s): [id number] cc: Iwona Chaudhari DO EXAMINATION: XR ELBOW 3 VIEWS RIGHT HISTORY: b/l lateral elbow pain and swelling COMPARISON: There are no prior studies available for comparison. FINDINGS: Four views of the right elbow are submitted. Osseous mineralization is normal. There is no fracture or dislocation. The joint spaces are preserved. The soft tissues are unremarkable. There is no joint effusion. XR/XR elbow RT min 3V IMPRESSION: Unremarkable examination of the right elbow. Electronically signed by: Fili Palmer MD 12/15/2024 02:24 PM EDT Dictated By: Fili Palmer MD Signed By: <Electronically signed by Fili Palmer MD in OV> 12/15/24 1424 DD/ 1327 TD/TT: 12/15/24 1400 Sales Representative Education Courses: Procedure Note Donotuseinterpreter, Image - 12/15/[address] [address] XRay Report Signed Patient: Emani RiveronMR#: [id number] 5 : 1975Acct:[id number] Age/Sex: 49 / FADM Date: 12/15/24 Loc: ZOIE Attending Dr: Iwona Chaudhari DO Ordering Physician: Iwona Chaudhari DO Date of Service: 12/15/24 Procedure(s): XR elbow RT min 3V Accession Number(s): [id number] cc: Iwona Chaudhari DO EXAMINATION: XR ELBOW 3 VIEWS RIGHT HISTORY: b/l lateral elbow pain and swelling COMPARISON: There are no prior studies available for comparison. FINDINGS: Four views of the right elbow are submitted. Osseous mineralization is normal. There is no fracture or dislocation. The joint spaces are preserved. The soft tissues are unremarkable. There is no joint effusion. XR/XR elbow RT min 3V IMPRESSION: Unremarkable examination of the right elbow. Electronically signed by: Fili Palmer MD 12/15/2024 02:24 PM EDT RP Dictated By: Fili Palmer MD Signed By: <Electronically signed by Fili Palmer MD in OV> 12/15/24 1424 DD/ 1327 TD/TT: 12/15/24 1400 Sales Representative Education Courses: Iwona Chaudhari DO IMG XR PROCEDURES Final Resu lt * XR Elbow 3+ Views Left (12/15/2024 1:25 PM EDT) Anatomical Region Laterality Modality Upper Extremities, Elbow Left Radiogr aphic Imaging 12/15/2024 1:25 PM EDT Narrative 12/15/2024 2:26 PM EDT [place] [address] XRay Report Signed Patient: Joan Rivero MR#: [id number] 5 : 1975 Acct:[id number] Age/Sex: 49 / F ADM Date: 12/15/24 Loc: HO.[facility] Attending Dr: Iwona Chaudhari DO Ordering Physician: Iwona Chaudhari DO Date of Service: 12/15/24 Procedure(s): XR elbow LT min 3V Accession Number(s): [id number] cc: Iwona Chaudhari DO EXAMINATION: XR ELBOW 3 VIEWS LEFT HISTORY: b/l lateral elbow pain and swelling COMPARISON: There are no prior studies available for comparison. FINDINGS: Four views of the left elbow are submitted. Osseous mineralization is normal. There is no fracture or dislocation. The joint spaces are preserved. The soft tissues are unremarkable. There is no joint effusion. XR/XR elbow LT min 3V IMPRESSION: Unremarkable examination of the left elbow. Electronically signed by: Fili Palmer MD 12/15/2024 02:23 PM EDT RP Dictated By: Fili Palmer MD Signed By: <Electronically signed by Fili Palmer MD in OV> 12/15/24 1423 DD/ 1325 TD/TT: 12/15/24 1400 Sales Representative Education Courses: Procedure Note Donotuseinterpreter, Image - 12/15/[address] [address] XRay Report Signed Patient: Delia Rivero#: [id number] 5 : 1975Acct:[id number] Age/Sex: 49 / FADM Date: 12/15/24 Loc: .[facility] Attending Dr: Iwona Chaudhari DO Ordering Physician: Iwona Chaudhari DO Date of Service: 12/15/24 Procedure(s): XR elbow LT min 3V Accession Number(s): [id number] cc: Iwona Chaudhari DO EXAMINATION: XR ELBOW 3 VIEWS LEFT HISTORY: b/l lateral elbow pain and swelling COMPARISON: There are no prior studies available for comparison. FINDINGS: Four views of the left elbow are submitted. Osseous mineralization is normal. There is no fracture or dislocation. The joint spaces are preserved. The soft tissues are unremarkable. There is no joint effusion. XR/XR elbow LT min 3V IMPRESSION: Unremarkable examination of the left elbow. Electronically signed by: Fili Palmer MD 12/15/2024 02:23 PM EDT RP Dictated By: Fili Palmer MD Signed By: <Electronically signed by Fili Palmer MD in OV> 12/15/24 1423 DD/ 1325 TD/TT: 12/15/24 1400 Sales Representative Education Courses: Iwona Peñalozacsak DO IMG XR PROCEDURES Final Resu lt * POCT HGB A1C (07/13/2024 11:10 AM [...] PM EST Narrative 06/20/2024 10:18 AM EST [facility]'[address] [place] [address] Mammography Report Signed Patient: Joan Rivero MR#: [id number] 5 : 1975 Acct:[id number] Age/Sex: 48 / F ADM Date: 06/11/24 Loc: HO.MAMMO Attending Dr: Aditi Matias MD Ordering Physician: Aditi Matias MD Results: 1Ne gative Date of Service: 06/11/24 Follow Up: 1 Year From [facility] Mammogram Procedure(s): MM tomosynthesis screening BI Accession Number(s): [id number] cc: Aditi Matias MD EXAMINATION: MM SCREENING [...] 06/20/24 1015 DD/ 1500 TD/TT: 06/11/24 1514 Sales Representative Education Courses: Procedure Note Donotuseinterpreter, Image - [facility]20/[facility] [address] [place] [address] Mammography Report Signed Patient: Delia Rivero#: [id number] 5 : 1975Acct:[id number] Age/Sex: 48 / FADM Date: 06/11/24 Loc: HO.MAMMO Attending Dr: Aditi Matias MD Ordering Physician: Aditi Matias MDResults: 1Ne gative Date of Service: 06/11/24Follow Up: 1 Year From Orig ina Mammogram Procedure(s): MM tomosynthesis screening BI Accession Number(s): [id number] cc: Aditi Matias MD EXAMINATION: MM SCREENING [...] 06/20/24 1015 DD/ 1500 TD/TT: 06/11/24 1514 Sales Representative Education Courses: Aditi Matias MD IMG BI PROCEDURES Final Result * Pap Smear (02/07/2023) [facility] Pap Negative for intraephithelial lesion or malignancy Negative for intraephithelial lesion or malignancy, Other HPV Undetected Undetected, Indeterminate, Quantitative, Not Detected Historical [facility] Final Result * Hepatitis A,B,C Profile (08/16/2021 9:44 AM EST) [facility] Hepatitis B Core Antibody Nonreactive Nonreactive [facility] Hepatitis B Surface Antibody REACTIVE Nonreactive [facility] Comment:REACTIVE: > 11.99 mI U/mL Hepatitis B Surface Antigen Negative Negative [facility] Hepatitis C Antibody Nonreactive Nonreactive [facility] Comment: Antibodies to HCV not detected; does not exclude early acute HCV infection. 08/16/2021 9:44 AM EST Result [facility] Historical Provider HISTORICAL/NON ORDERABLE LABS Final Result [facility] [address] [place] [address] * (ABNORMAL) Colonoscopy (06/15/2021) [facility] Colonoscopy Abnormal( A) Normal Comment:Tubular adenoma 06/15/2021 Aditi Matias MD HEALTH MAINTENANCE Final Result * (ABNORMAL) LIPID PANEL, STANDARD (02/21/2020 9:56 AM EDT) Triglycerides 96 <150 mg/dL [facility] Cholesterol, Total 189 <200 mg/dL [facility] Non-HDL Cholesterol 142(H) <130 mg/dL (calc) [facility] Comment: For patients with diabetes plus 1 major ASCVD risk factor, treating to a non-HDL-C goal of <100 mg/dL (LDL-C of <70 mg/dL) is considered a therapeutic option. HDL Cholesterol 47(L) > OR = 50 mg/dL [facility] LDL Cholesterol 122(H) mg/dL (calc) [facility] Comment: Reference range: <100 Desirable range <100 mg/dL for primary prevention; <70 mg/dL for patients with CHD or diabetic patients with > or = 2 CHD risk factors. LDL-C is now calculated using the Lidia calculation, which is a validated novel method providing better accuracy than the Friedewald equation in the estimation of LDL-C. Tor BECKHAM et al. BETTY. 2013;310(19): 7913-2611 (http://education.Centrix.com/faq/OUP391) Chol/HDLC Ratio 4.0 <5.0 (calc) [facility] 02/21/2020 9:56 AM EDT Aditi Matias MD LAB BLOOD ORDERABLES Fin al Result [facility] [address] from Last 3 Months or Most Recently Relevant to Health Maintenance Insurance [facility] PPO Care Teams Multimedia Coordinator Relationship Specialty Start Date End Date Aditi Matias MD [address] [place] [phone] PCP - General Family Medicine 02/10/19
--- OUTSIDE RECORDS SUMMARY | 2025-03-14 13:00 | XMS_ITS | Clinical Summary ---
Author Organization [facility] Address [address] [place] [address] Care Team Providers Care Coloring Checker Name Role Phone Unavailable Primary Care Provider Unavailabl e Social History Tobacco Use Types Packs/Day Years Used Date Smoking Tobacco: Never Assessed Sex and Gender Information Value Date Recorded Sex Assigned at Not on file Gender Identity Not on file Sexual Orientation Not on file Plan of Treatment Not on file
--- OUTSIDE RECORDS SUMMARY | 2025-03-14 13:00 | XMS_ITS | Encounter Summary ---
Author Organization [employer] Address [address] [facility] [address]t [place] [address] Care Team Providers Care Tar Chaser Name Role Phone Aditi Matias MD Primary Care Provider + Reason for Referral * Consultation (Routine) - Closed Specialty Diagnoses / Procedures Referred By Contphilly t Referred To Contact Physical Therapy Diagnoses Acute pain of left knee Kimberly Bello NP [address] [place] [address] Phone: tel: fax: [facility] Physical Therapy [address] [place] [address] Phone: tel: fax: Referral ID Status Reason Start Date Expiration Date V isits Requested Visits Authorized [id number] Closed Specialty Services Required 09/13/2024 09/13/2025 1 1 Encounter Details Date Type Department Care Team (Late st Contact Info) Description 09/13/2024 Orders Only [facility] [address] [place], [place] [phone] Kimberly Bello NP [address] [place], [place] [phone] Left lateral ankle pain (Primary Dx); Acute [...] Description 05/20/2025 11:45 AM EST Office Visit [facility] [address] [place] [phone] Aditi Matias MD [address] [place] [address] Scheduled Referrals Name Type Priority Associated Diagnoses [...] PM EDT Narrative 10/12/2024 3:47 PM EDT [address] [address] Ultrasound Report Signed Patient: Joan Rivero MR#: [id number] 5 : 1975 Acct:[id number] Age/Sex: 48 / F ADM Date: 10/12/24 Loc: HO.ED Attending Dr: Ordering Physician: Daron Gardner Date of Service: 10/12/24 Procedure(s): US venous duplex LE LT Accession Number(s): [id number] cc: Daron Gardner; Aditi Matias MD EXAMINATION: [...] Signed By: <Electronically signed by Dom Clements MD in OV> 10/12/24 1544 DD/ 1458 TD/TT: 10/12/24 1525 Preventive Medicine Specialist: Procedure Note Donotuseinterpreter, Image - 10/12/[address] [address] Ultrasound Report Signed Patient: Emani RiveronMR#: [id number] 5 : 1975Acct:[id number] Age/Sex: 48 / FADM Date: 10/12/24 Loc: HO.ED Attending Dr: Ordering Physician: Daron Gardner Date of Service: 10/12/24 Procedure(s): US venous duplex LE LT Accession Number(s): [id number] cc: Daron Gardner; Aditi Matias MD EXAMINATION: [...] 10/12/24 1544 DD/ 1458 TD/TT: 10/12/24 1525 Preventive Medicine Specialist: [facility] External Provider IMG US PROCEDURES Final Result documented in this encounter Visit Diagnoses Diagnosis Left lateral ankle pain- Primary Acute pain of left knee documented in this encounter Care Teams Tar Chaser Relationship Specialty Start Date End Date Aditi Matias MD [address] [place] [phone] PCP - General Family Medicine 02/10/19 documented as of this encounter
--- OUTSIDE RECORDS SUMMARY | 2025-03-14 13:00 | XMS_ITS | Encounter Summary ---
Author Organization [employer] Address [address] [facility] [address] [place] [address] Care Team Providers Care Class C Truck Driver Name Role Phone Aditi Matias MD Primary Care Provider + Reason for Visit * Reason Onset Date Comments oct recall 03/11/2025 Encounter Details Date Type Department Care Team ([facility] Contact Info) Description 03/11/2025 Telephone [facility] MEDICINE [address] [place], [place] [phone] Aditi Matias MD [address] [place] [address] oct recall Social History Tobacco Use Types Packs/Day [...] encounter Miscellaneous Notes * Telephone Encounter - Yanira Charles MA - 03/11/2025 3:31 PM EDT Telephone call to patient to schedule the following recall: Visit type: Office visit Appointment notes: f/u Patient agree to appointment on 05/20/25 at 11:15 AM with Polly. documented in this encounter Plan of Treatment Upcoming Encounters Date Type Department Care Team (Late st Contact Info) Description 05/20/2025 11:45 AM EST Office Visit [facility] MEDICINE [address] [place] [phone] Aditi Matias MD [address] [place] [address] documented as of this encounter Visit Diagnoses Not on filedocumented in this encounter Care Teams Class C Truck Driver Relationship Specialty Start Date End Date Aditi Matias MD [address] [place] [phone] PCP - General Family Medicine 02/10/19 documented as of this encounter
--- OUTSIDE RECORDS SUMMARY | 2025-03-14 13:00 | XMS_ITS | Encounter Summary ---
Author Organization [employer] Address [address] [facility] [address] [place] [address] Care Team Providers Care Osteopathic Neurologist Name Role Phone Aditi Matias MD Primary Care Provider + Encounter Details Date Type Department Care Team (Late Contact Info) Description 06/28/2022 Telephone [facility] MEDICINE [address] [place] [phone] Aditi Matias MD [address] [place] [address] [phone] Social History Tobacco Use Types Packs/Day Years [...] Description 05/20/2025 11:45 AM EST Office Visit [facility] MEDICINE [address] [place] [address] [phone] Aditi Matias MD [address] [place] [address] [phone] documented as of this encounter Visit Diagnoses Not on filedocumented in this encounter Care Teams Osteopathic Neurologist Relationship Specialty Start Date End Date Aditi Matias MD [address] [place] [phone] PCP - General Family Medicine 02/10/19 documented as of this encounter
--- OUTSIDE RECORDS SUMMARY | 2025-03-14 13:00 | XMS_ITS | Encounter Summary ---
Author Organization [employer] Address [address] [facility] [address] [place] [address] Care Team Providers Care Smooth Stucco Resurfacer Name Role Phone Aditi Matias MD Primary Care Provider + Reason for Visit * Reason Onset Date Comments Request For Order(s) 09/13/2024 Encounter Details Date Type Department Care Team ([facility] st Contact Info) Description 09/13/2024 Telephone [facility] MEDICINE [address] [place], [place] [phone] Aditi Matias MD [address] [place] [address] Request For Order(s) Social History Tobacco Use [...] - 09/13/2024 10:25 AM EDT Tc from [place] with [facility] requesting an order for physical therapy due to pt left leg pain. [place] will like order to be faxed over to [phone] (Attention [place]) documented in this encounter Plan of Treatment Upcoming Encounters Date Type Department Care Team (Late st Contact Info) Description 05/20/2025 11:45 AM EST Office Visit [facility] MEDICINE [address] [place] [address] Aditi Matias MD [address] [place] [address] documented as of this encounter Visit Diagnoses Not on filedocumented in this encounter Care Teams Smooth Stucco Resurfacer Relationship Specialty Start Date End Date Aditi Matias MD [address] [place] [phone] PCP - General Family Medicine 02/10/19 documented as of this encounter
[2025-03-14 13:30] LABS: MANUAL DIFF FLAG NO
[2025-03-14 13:34] LABS: Hematocrit 39.3 % (37.0-47.0); Hemoglobin 12.3 g/dl (12.0-16.0); Imm Gran Abs Auto 0.02 X10*3/uL (0.00-0.03); Imm Gran Pct Auto 0.3 % (0.0-0.4); Lymphocytes Absolute Auto 2.6 X10*3/uL (1.2-4.9); Mean Corpuscular HGB Conc 31.3 g/dl (31.0-35.0); Mean Corpuscular Hemoglobin 26.6 pg (27.0-33.0); Mean Corpuscular Volume 84.9 fL (80.0-98.0); NRBC Abs Auto 0.000 X10*3/uL (0.0-0.012); NRBC Pct Auto 0.0 /100WBC (0.0-0.2); Platelet Count 236 X10*3/uL (160-400); Red Blood Count 4.63 X10*6/uL (4.20-5.50); White Blood Count 7.1 X10*3/uL (4.8-10.8)
[2025-03-14 14:05] LABS: Alanine Aminotransferase 19 U/L (0-31); Albumin Level 4.0 g/dL (3.5-5.0); Alkaline Phosphatase 56 U/L (39-117); Anion Gap 8 (12-20); Aspartate Amino Transferase 22 U/L (5-31); Blood Urea Nitrogen 12 mg/dL (9-16); Calcium 9.3 mg/dL (8.4-10.2); Carbon Dioxide 31 mmol/L (22-29); Chloride 103 mmol/L (96-108); Estimated Glomerular Filt Rate > 60; Lipase 16 U/L (8-78); Potassium 3.4 mmol/L (3.3-5.1); Sodium 139 mmol/L (135-145); Total Protein 7.5 g/dL (6.5-8.0)
[2025-03-14 18:33] LABS: Folate 9.6 ng/mL (> or = 4.0); Vitamin B12 244 pg/mL (200-900)
== END 2025-03-14 10:49 | disposition home or self-care (01) ==
LOC: HO.HHCL 10:48
PROVIDERS: PCP Internal Medicine; Visit Provider Family Medicine
DX: R07.89 Other chest pain (principal); N30.90 Cystitis, unspecified without hematuria; R74.01 Elevation of levels of liver transaminase levels; R10.9 Unspecified abdominal pain
CPT/HCPCS: 36415; 80048; 80076; 82607; 82746; 83690; 85025; 87086